=== PATIENT | male | born 1950 | race Caucasian/White ===

== ENCOUNTER → 2023-06-18 08:52 | Outpatient (REF) | payer MEDICARE, OTHER, SELFPAY | LOC: RAD 08:52 | PROVIDERS: ATTENDING PHYSICIAN Surgery Vascular Surgery; FAMILY PHYSICIAN Family Medicine | DX: I77.9 Disorder of arteries and arterioles, unspecified (principal) | CPT/HCPCS: 93925; 93978 ==

== ENCOUNTER 2024-05-10 13:12 | Emergency (ER) | payer MEDICARE, OTHER, SELFPAY ==
[2024-05-10 13:26] VITALS: BP 123/72
[2024-05-10 14:05] LABS: Hematocrit 39.3 % (39.0-52.0); Hemoglobin 12.7 g/dL (13.0-18.0); Mean Corp Hgb Conc. 32.3 g/dL (33.0-37.0); Mean Corpuscular Hgb 26.8 pg (27.0-31.0); Mean Corpuscular Volume 82.9 fL (80.0-94.0); Mean Platelet Volume 8.8 fL (7.4-10.4); Platelet Count 90 10^3/uL (130-400); Red Blood Cell Count 4.74 10^6/uL (4.70-6.10); Red Cell Dist. Width 20.1 % (11.5-14.5); White Blood Cell Count 3.5 10^3/uL (4.8-10.8)
[2024-05-10 14:15] LABS: ALT (SGPT) 42 U/L (0-50); AST (SGOT) 47 U/L (17-59); Albumin 3.2 g/dl (3.5-5.0); Alkaline Phosphatase 164 U/L (38-126); Blood Urea Nitrogen 30 mg/dl (9-20); Calcium 8.7 mg/dl (8.4-10.2); Carbon Dioxide 26 mmol/L (22-30); Chloride 102 mmol/L (98-107); Glucose 100 mg/dl (70-99); Potassium 4.9 mmol/L (3.5-5.1); Sodium 135 mmol/L (135-145); Total Bilirubin 0.6 mg/dl (0.2-1.3); Total Protein 7.5 g/dl (6.3-8.2); eGFR > 60.00
[2024-05-10 14:34] LABS: % Basophils 1.2 % (0-2); % Eosinophils 0.6 % (0-6); % Lymphocytes 86.2 % (20.5-51.1); % Monocytes 6.9 % (1.7-9.3); % Neutrophils 5.1 % (42.2-75.2); Absolute Monocytes 0.2 10^3/uL (0.1-0.6); Absolute Neutrophils 0.2 10^3/uL (1.4-6.5); Nucleated Red Blood Cells % 0 % (-)
--- NOTE | 2024-05-10 14:53 | ED.SKININJ ---
HPI-Injury
<QUETA Barrientos - Last Filed: 05/10/24 15:26>
General
Chief Complaint: Skin Problem
Source: patient and spouse
Time Seen by Provider: 05/10/24 14:06
History of Present Illness-Injury
Initial Injury comments:
This is a 73 y/o male with PMH of B/L BKA, peripheral vascular disease, dilated cardiomyopathy, atrial fibrillation, hypertension, hyperlipidemia, and rheumatoid arthritis who presents to the ED c/o L BKA wound x 7 days. The wound is located on the
L knee medial. Pt has been dressing wound with Neosporin and large bandaids which have been further irritating the area. The wound has gotten larger since onset 7 days ago. Pt states the area is not painful nor warm. Denies fever/chills, nausea,
vomiting, diarrhea, headache and fatigue.
Past History
<QUETA Barrientos - Last Filed: 05/10/24 15:26>
Past History
ED Past Medical History: Arrthythmia (Atrial fib) and Other (Rheumatoid arthritis, peripheral vascular disease, Phantom pain, Psoriasis, )
ED Past Surgical History: None and Other (Vein removed left leg, B/L BKA)
Social History
Tobacco: Former smoker (quit 3-4 yrs ago)
Alcohol: Occasional
Drug: None
Personal:
Living: with family
Review of Systems
<QUETA Barrientos - Last Filed: 05/10/24 15:26>
Review of Systems
Allergies reviewed?: Yes
Constitutional: Reports no symptoms
EENT: Reports no symptoms
Respiratory: Reports no symptoms
Cardiac: Reports no symptoms
ABD/GI: Reports no symptoms
: Reports no symptoms
Musculoskeletal: Reports no symptoms
Skin: Reports no symptoms
Neurological: Reports no symptoms
Endocrine: Reports no symptoms
Hematologic/Lymphatic: Reports no symptoms
Psychiatric: Reports no symptoms
Phy Exam
<QUETA Barrientos - Last Filed: 05/10/24 15:26>
Physical Exam
Physical Exam:
Skin: L medial knee 8x5x0.1cm erythematous plaque with a 2cm ulcer centrally located with a 1cm pustule within; skin turgor with instant recoil
Head: Atraumatic, normocephalic; scalp, pink freely moveable without tenderness
Eyes: sclerae non-icteric; PERRLA; EOMI
Resp: muscle and respiratory effort symmetric without use of accessory muscles; vesicular breath sounds without adventitious sounds; even, quiet breathing
Heart: No lifts or heaves visible; regular rate and rhythm; No murmurs, rubs or gallops
General Physical Exam
General Presentation: well appearing
General age: appears stated age
General Skin: warm and dry
General Habitus: normal
General Mental: alert
General Hydration: appears well hydrated
Course
<Amarilis Duenas BHAVYA - Last Filed: 05/10/24 15:26>
Orders/Labs/Results
Orders:
Orders
05/10/24 13:42
Complete Blood Count/With Diff Urgent
Comprehensive Metabolic Panel Urgent
05/10/24 14:53
Doxycycline [Vibramycin] 100 mg PO NOW STA
Abnormal Lab Results
05/10/24
13:42
WBC 3.5 L 10^3/uL
(4.8-10.8)
Hgb 12.7 L g/dL
(13.0-18.0)
MCH 26.8 L pg
(27.0-31.0)
MCHC 32.3 L g/dL
(33.0-37.0)
RDW 20.1 H %
(11.5-14.5)
Plt Count 90 L 10^3/uL
(130-400)
Absolute Neuts (auto) 0.2 L* 10^3/uL
(1.4-6.5)
Neutrophils % 5.1 L %
(42.2-75.2)
Lymphocytes % 86.2 H %
(20.5-51.1)
BUN 30 H mg/dl
(9-20)
Glucose 100 H mg/dl
(70-99)
Alkaline Phosphatase 164 H U/L
(38-126)
Albumin 3.2 L g/dl
(3.5-5.0)
05/10/24 13:42
05/10/24 13:42
Vital Signs
Initial and Last Documented VS:
Initial Vital Signs
Temp Pulse Resp BP Pulse Ox
98.1 F 66 16 123/72 98
05/10/24 13:26 05/10/24 13:26 05/10/24 13:26 05/10/24 13:26 05/10/24 13:26
Last Documented Vital Signs
Temp Pulse Resp BP Pulse Ox
98.1 F 66 16 123/72 98
05/10/24 13:26 05/10/24 13:26 05/10/24 13:26 05/10/24 13:26 05/10/24 13:26
Samirlt;Jeremy Alcala, - Last Filed: 05/10/24 15:00>
Orders/Labs/Results
Orders:
Orders
05/10/24 13:42
Complete Blood Count/With Diff Urgent
Comprehensive Metabolic Panel Urgent
05/10/24 14:53
Doxycycline [Vibramycin] 100 mg PO NOW STA
Abnormal Lab Results
05/10/24
13:42
WBC 3.5 L 10^3/uL
(4.8-10.8)
Hgb 12.7 L g/dL
(13.0-18.0)
MCH 26.8 L pg
(27.0-31.0)
MCHC 32.3 L g/dL
(33.0-37.0)
RDW 20.1 H %
(11.5-14.5)
Plt Count 90 L 10^3/uL
(130-400)
Absolute Neuts (auto) 0.2 L* 10^3/uL
(1.4-6.5)
Neutrophils % 5.1 L %
(42.2-75.2)
Lymphocytes % 86.2 H %
(20.5-51.1)
BUN 30 H mg/dl
(9-20)
Glucose 100 H mg/dl
(70-99)
Alkaline Phosphatase 164 H U/L
(38-126)
Albumin 3.2 L g/dl
(3.5-5.0)
05/10/24 13:42
05/10/24 13:42
Vital Signs
Initial and Last Documented VS:
Initial Vital Signs
Temp Pulse Resp BP Pulse Ox
98.1 F 66 16 123/72 98
05/10/24 13:26 05/10/24 13:26 05/10/24 13:26 05/10/24 13:26 05/10/24 13:26
Last Documented Vital Signs
Temp Pulse Resp BP Pulse Ox
98.1 F 66 16 123/72 98
05/10/24 13:26 05/10/24 13:26 05/10/24 13:26 05/10/24 13:26 05/10/24 13:26
<QUETA Barrientos - Last Filed: 05/10/24 15:26>
MDM/Problems Addressed
MDM/Problems Addressed:
This is a 73 y/o male with PMH of B/L BKA, peripheral vascular disease, dilated cardiomyopathy, atrial fibrillation, hypertension, hyperlipidemia, and rheumatoid arthritis who presents to the ED with a wound slightly proximal to his amputation site
on the Left LE. Pt denies systemic systems such as fever, chills, nausea, vomiting and fatigue. Consistent with this, the wound is not warm to the touch nor swollen or indurated. Pt appears comfortable and denies pain to the touch. Admits to mild
tenderness with placement of prosthetic leg cover. Advised use of nonadherent bandages for dressing that should be changed after bath time and application of Mupirocin ointment to the wound. Pt to follow-up with wound care. Will initiate first dose
of Doxycycline 100mg prior to discharge today. Case seen and discussed with ED attending, Dr. Alcala.
<QUETA Barrientos - Last Filed: 05/10/24 15:26>
*Critical Care Note
Total Time (30-74mins, 75-104mins- exclusive of procedures): Not Applicable
ED Attending Note
<QUETA Barrientos - Last Filed: 05/10/24 15:26>
-
Portions of this chart may have been created with voice recognition software.� Occasional wrong word or��sound alike� substitutions may have occurred due to the inherent limitations of voice recognition software.
<Jeremy Alcala DO - Last Filed: 05/10/24 15:00>
ED Attending Note
Patient seen and examined by attending physician: Yes
I performed the substantive portion of visit, reviewed & personally made and approve the management plan that is documented in note by myself or CAMILLE.: Yes
Discharge Plan
Departure
Patient Disposition: Home (Routine Discharge)
Date of Disposition: 05/10/24
Time of Disposition: 14:54
Patient with high blood pressure during this ER visit?: No
Discharge Problem:
Leg wound, left
Prescriptions:
New
doxycycline monohydrate 100 mg capsule
100 mg PO BID Qty: 20 0RF
mupirocin 2 % ointment
1 applic topical BID Qty: 50 0RF
No Action
atorvastatin 10 mg tablet
10 mg PO DAILY
Entresto 24-26 mg Tablet
1 tab PO BID
multivitamin Tablet
1 tab PO DAILY
aspirin 81 mg tablet,delayed release (DR/EC)
81 mg PO DAILY
Eliquis 5 mg tablet
5 mg PO BID
Farxiga 10 mg tablet
10 mg PO DAILY
metoprolol succinate 50 mg tablet extended release 24 hr
25 mg PO DAILY
Santyl 250 unit/gram ointment
1 applic TOPICAL DAILY
polyethylene glycol 3350 [HealthyLax] 17 gram Powder In Packet
17 g PO DAILY Qty: 15 0RF
docusate sodium 100 mg Capsule
100 mg PO BID Qty: 5 0RF
gabapentin 100 mg Capsule
100 mg PO HS Qty: 60 0RF
amoxicillin-pot clavulanate 875-125 mg Tablet
1 tab PO Q12 Qty: 12 0RF
Rx Instructions:
Throat March 18
oxycodone 5 mg Tablet
5 mg PO Q4HPRN PRN (Reason: mod pain) Qty: 20 0RF
oxycodone 10 mg Tablet
10 mg PO Q4HPRN PRN (Reason: severe) Qty: 20 0RF
Referrals:
Chicho Muñiz DO [Family Provider] -
Activity Restrictions/Additional Instructions:
Please follow-up with wound care in the next 3 to 5 days. Keep the wound clean and dry. It is okay to get wet but do not soak it. Be careful not to allow your prosthesis to rub in that area. Return immediately for fevers, swelling, increased
redness, drainage or any other concerns. Change dressings twice a day.
Interventions
Interventions:
*Risk Screen - Suicide Last Done: 05/10/24 13:26
*General Assessment Last Done: 05/10/24 14:50
*Neglect/Abuse Screening Last Done: 05/10/24 13:26
ED- Fall Risk Assessment Last Done: 05/10/24 15:17
*ED COVID-19 Vaccine History Last Done: 05/10/24 14:50
*Nursing Disposition Last Done: 05/10/24 15:17
ED-Skin Assessment Last Done: 05/10/24 15:14
Discharge Date and Time
Print Language: BELARUSIAN
[2024-05-10] MEDS: VIBRAMYCIN 100 MG PO (15:10)
== END 2024-05-10 15:19 | disposition home or self-care (01) ==
LOC: EMR 13:12
PROVIDERS: Emergency Medicine; EMERGENCY PHYSICIAN Emergency Medicine; FAMILY PHYSICIAN Family Medicine
DX: S81.802A Unspecified open wound, left lower leg, initial encounter (principal); X58.XXXA Exposure to other specified factors, initial encounter; I73.9 Peripheral vascular disease, unspecified; I42.0 Dilated cardiomyopathy; I48.91 Unspecified atrial fibrillation; I10 Essential (primary) hypertension; E78.00 Pure hypercholesterolemia, unspecified; M06.9 Rheumatoid arthritis, unspecified; Z87.891 Personal history of nicotine dependence; Z89.512 Acquired absence of left leg below knee
CPT/HCPCS: 99283; 80053; 85025

== ENCOUNTER → 2024-05-11 07:36 | Outpatient (REF) | payer MEDICARE, OTHER, SELFPAY | LOC: WOUND 07:36 | PROVIDERS: ATTENDING PHYSICIAN Surgery; FAMILY PHYSICIAN Family Medicine | DX: L89.893 Pressure ulcer of other site, stage 3 (principal); S81.002A Unspecified open wound, left knee, initial encounter; I77.9 Disorder of arteries and arterioles, unspecified; I48.0 Paroxysmal atrial fibrillation; I50.21 Acute systolic (congestive) heart failure; M06.9 Rheumatoid arthritis, unspecified; Z89.512 Acquired absence of left leg below knee; Z89.511 Acquired absence of right leg below knee; X58.XXXA Exposure to other specified factors, initial encounter | CPT/HCPCS: 11042; 99214 ==

== ENCOUNTER → 2024-05-11 08:57 | Outpatient (REF) | payer MEDICARE, OTHER, SELFPAY | LOC: RAD 08:57 | PROVIDERS: ATTENDING PHYSICIAN Surgery; FAMILY PHYSICIAN Family Medicine | DX: L89.893 Pressure ulcer of other site, stage 3 (principal); S81.002A Unspecified open wound, left knee, initial encounter | CPT/HCPCS: 73564 ==

== ENCOUNTER → 2024-05-18 08:44 | Outpatient (REF) | payer MEDICARE, OTHER, SELFPAY | LOC: WOUND 08:44 | PROVIDERS: ATTENDING PHYSICIAN Surgery; FAMILY PHYSICIAN Family Medicine | DX: L89.893 Pressure ulcer of other site, stage 3 (principal); S81.002A Unspecified open wound, left knee, initial encounter; X58.XXXA Exposure to other specified factors, initial encounter | CPT/HCPCS: 11042 ==

== ENCOUNTER → 2024-07-19 09:47 | Outpatient (REF) | payer MEDICARE, OTHER, SELFPAY | LOC: RAD 09:47 | PROVIDERS: ATTENDING PHYSICIAN Surgery Vascular Surgery; FAMILY PHYSICIAN Family Medicine | DX: I77.9 Disorder of arteries and arterioles, unspecified (principal) | CPT/HCPCS: 93978 ==

== ENCOUNTER → 2024-08-03 09:59 | Outpatient (REF) | payer MEDICARE, OTHER, SELFPAY | LOC: WOUND 09:59 | PROVIDERS: ATTENDING PHYSICIAN Surgery; FAMILY PHYSICIAN Family Medicine | DX: L89.893 Pressure ulcer of other site, stage 3 (principal); S81.002A Unspecified open wound, left knee, initial encounter; I77.9 Disorder of arteries and arterioles, unspecified; Z89.512 Acquired absence of left leg below knee; Z89.511 Acquired absence of right leg below knee; I48.0 Paroxysmal atrial fibrillation; I50.21 Acute systolic (congestive) heart failure; M06.9 Rheumatoid arthritis, unspecified | CPT/HCPCS: 99214 ==

== ENCOUNTER → 2024-08-10 10:15 | Outpatient (REF) | payer MEDICARE, OTHER, SELFPAY | LOC: WOUND 10:15 | PROVIDERS: ATTENDING PHYSICIAN Surgery; FAMILY PHYSICIAN Family Medicine | DX: L89.893 Pressure ulcer of other site, stage 3 (principal); S81.002A Unspecified open wound, left knee, initial encounter; I77.9 Disorder of arteries and arterioles, unspecified; I48.0 Paroxysmal atrial fibrillation; I50.21 Acute systolic (congestive) heart failure; M06.9 Rheumatoid arthritis, unspecified; Z89.512 Acquired absence of left leg below knee; Z89.511 Acquired absence of right leg below knee; X58.XXXA Exposure to other specified factors, initial encounter | CPT/HCPCS: 99213 ==

== ENCOUNTER → 2024-08-10 11:36 | Outpatient (REF) | payer MEDICARE, OTHER, SELFPAY | LOC: RAD 11:36 | PROVIDERS: ATTENDING PHYSICIAN Surgery | DX: L89.893 Pressure ulcer of other site, stage 3 (principal); S81.002A Unspecified open wound, left knee, initial encounter | CPT/HCPCS: 73564 ==

== ENCOUNTER → 2024-08-17 10:46 | Outpatient (REF) | payer MEDICARE, OTHER, SELFPAY | LOC: WOUND 10:46 | PROVIDERS: ATTENDING PHYSICIAN Surgery; FAMILY PHYSICIAN Family Medicine | DX: L89.893 Pressure ulcer of other site, stage 3 (principal); S81.002A Unspecified open wound, left knee, initial encounter; I77.9 Disorder of arteries and arterioles, unspecified; I48.0 Paroxysmal atrial fibrillation; I50.21 Acute systolic (congestive) heart failure; M06.9 Rheumatoid arthritis, unspecified; Z89.512 Acquired absence of left leg below knee; Z89.511 Acquired absence of right leg below knee; X58.XXXA Exposure to other specified factors, initial encounter | CPT/HCPCS: 10140 ==

== ENCOUNTER 2024-08-24 19:30 | Inpatient (IN) | payer MEDICARE, OTHER, SELFPAY ==
[2024-08-24] VITALS (38 sets, daily range): BP systolic 73–145; BP diastolic 52–122; BMI 17.9
--- NOTE | 2024-08-24 16:37 | ED.GENMED ---
History of Present Illness
<EDISON Gonsalves - Last Filed: 08/24/24 21:30>
General
Chief Complaint: Weakness
Source: patient and spouse
Exam Limitations: none
Time Seen by Provider: 08/24/24 16:17
Nursing documentation reviewed up to this point in time: agreed with
History of Present Illness
History of Present Illness:
Patient is a 73-year-old male with past medical history of peripheral vascular disease , bilateral BKA, A-fib on Eliquis CAD with stent, CHF pacemaker presents to the ER for evaluation. Patient lives at home with is normally able to get
around using his prosthesis and care for himself. He has been weak for the past several days and started with fever today. Patient complains of generally feeling fatigued and chills. reports his urine is dark. Patient took Tylenol around 8
AM this morning. Nothing since. He denies any runny nose does complain of mild cough.
reports patient is being followed by wound center Dr. Bustamante for chronic wound to left leg.
Past History
<EDISON Gonsalves - Last Filed: 08/24/24 21:30>
Past History
ED Past Medical History: Arrthythmia (Atrial fib) and Other (Rheumatoid arthritis, peripheral vascular disease, Phantom pain, Psoriasis, )
ED Past Surgical History: None and Other (Vein removed left leg, B/L BKA)
Social History
Tobacco: Former smoker (quit 3-4 yrs ago)
Alcohol: Occasional
Drug: None
Personal:
Living: with family
Review of Systems
<EDISON Gonsalves - Last Filed: 08/24/24 21:30>
Review of Systems
Allergies reviewed?: Yes
Other source history: family
All Other Systems: ROS reviewed and negative except as documented in HPI and ROS
Constitutional: Reports fever, fatigue and chills
Respiratory: Reports cough; Denies trouble breathing
Cardiac: Reports no symptoms
ABD/GI: Reports no symptoms
: Reports dark urine
Musculoskeletal: Reports no symptoms
Skin: Reports no symptoms
Neurological: Reports no symptoms
Psychiatric: Reports no symptoms
Phy Exam
<EDISON Gonsalves - Last Filed: 08/24/24 21:30>
General Physical Exam
General Presentation: no apparent distress
General age: appears stated age
General Skin: warm and dry
General Habitus: normal
General Mental: alert
General Hydration: dry mucous membranes
Cardiovascular Exam
Cardiovascular Exam: irregularly irregular and tachycardia
Pulmonary Exam
Pulmonary Exam: lungs clear and no respiratory distress
Neurological Exam
Neurological Exam: alert and oriented x3
Musculoskeletal Exam
Musculoskeletal Exam: other (Bilateral BKA)
Skin Exam
Skin Exam: normal color and warm/dry
Psychiatric Exam
Psychiatric Exam: normal mood/affect
Sepsis
<EDISON Gonsalves - Last Filed: 08/24/24 21:30>
Sepsis Screening
Sepsis Assessment: Sepsis
Sepsis Screen
Sepsis Screen: Sepsis
Date: 08/24/24
Time: 21:30
<Jeremy Alcala DO - Last Filed: 08/24/24 23:15>
Sepsis Screen
Sepsis Screen: Sepsis
Date: 08/24/24
Time: 23:13
Course
<EDISON Gonsalves - Last Filed: 08/24/24 21:30>
Orders/Labs/Results
Orders:
Orders
08/24/24 Breakfast
Sodium, 2 Gram
At Your Request: Full Participation
08/24/24 16:00
Electrocardiogram (*1) Urgent
Reason for Study: Tachycardia
EKG- Treatment ONCE
08/24/24 16:12
COVID-19 Antigen Urgent
Source: Nasal Swab
Complete Blood Count/With Diff Urgent
Comprehensive Metabolic Panel Urgent
Influenza A+B Rapid Molecular Urgent
MARIYA Source: Nasal Swab
Specimen Description:
08/24/24 16:38
Cardiac Monitoring- Treatment ONCE
IV Insert/Care/Rem.- Treatment PRN
Portable Chest Xray [CR Chest Portable - 1 View] Urgent
Comment:
Reason For Exam: cough
Reason Study Needs to be Portable: Patient Unstable
08/24/24 16:39
Acetaminophen [Tylenol/Feverall] 650 mg RECTAL NOW STA
08/24/24 16:44
0.9% Sodium Chloride 1000 ml [Nss] 1,800 ml IV NOW STA
08/24/24 16:52
Lactic Acid Q4H
Comment: CANCEL 2nd LACTIC ACID IF 1st LACTIC ACID IS LESS THAN 2
Blood Culture Q30M
MARIYA Source: Blood/Venous
Specimen Description:
Blood Culture Q30M
MARIYA Source: Blood/Venous
Specimen Description:
08/24/24 18:15
NORepinephrine 4 MG/250 ML [Levophed] 4 mg in 250 ml IV PER PROTOCOL
Initial dose in mcg/min, then titrate:: 8
Titrate to keep:: MAP > 65 mmHg
Titrate by mcg/min:: 1-2 mcg/min
Frequency of titrations (minutes):: 5
Maximum dose in ICU in mcg/min:: 30
Maximum dose in IMU in mcg/min:: 8
Maximum dose in IVU in mcg/min:: 4
Begin to taper infusion when:: Remained at goal for 4hrs
Taper by mcg/min:: 1-2 mcg/min
Frequency of taper (minutes) if patient maintains goal:: 30
Taper to off?: Yes
If infusion off & no longer maintaining goal:: Contact Provider
08/24/24 18:17
Piperacillin/Tazo 4.5 Gram [Zosyn] 4.5 gram in 100 ml IV NOW
08/24/24 18:32
UA Reflex to Culture [Urinalysis Reflex To Culture] Urgent
Date Specimen was Collected: 08/24/24
Time Specimen was Collected: 18:28
Urine Microscopic Reflex Cult Urgent
Urine Culture Urgent
MARIYA Source: U
Specimen Description:
Date Specimen was Collected: 08/24/24
Time Specimen was Collected: 18:28
08/24/24 18:51
0.9% Sodium Chloride 500 ml [Nss] 500 ml IV BOLUS
Vancomycin [Vancocin] 1,500 mg 0.9% Sodium Chloride 500 ml [Nss] 500 ml IV NOW
08/24/24 18:54
Admit/Transfer Patient As Directed
Co-Sign Provider:
Level of Care: Inpatient admission
Assign to:: ICU
Physician / Group: Yamilet
Diagnosis: Septic Shock
Reason for Hospitalization: pressors, IV abx
Expected length of stay greater than two midnights?: Yes
ELOS- Estimated Length of Stay in days: 3
I certify the patient meets the requirements for IP care: Yes
Sodium Bicarbonate 50 meq IV NOW STA
PRN Pain Medication Management As Directed
May give lesser potent ordered pain med per pt: Yes
preference::
Protocol:: Medication orders for pain may be administered in a
manner that supports deferring to patient preference
when the pt is:
- Requesting an ordered lesser potent pain medication.
Least to most potent pain medications are defined
as: acetaminophen < NSAID < tramadol < opioids
(morphine, oxycodone, hydromorphone).
- Requesting a lesser dose of the same medication IF
ORDERED.
- Requesting a less intrusive route of administration
if both routes are prescribed by the provider (PO <
IV).
08/24/24 18:55
Code Status As Directed
Resuscitation Status: Full Code
08/24/24 21:13
Lactic Acid Q4H
Comment: CANCEL 2nd LACTIC ACID IF 1st LACTIC ACID IS LESS THAN 2
08/24/24 21:44
Acetaminophen [Tylenol] 650 mg PO Q4HPRN PRN
PHENYLephrine 50 MG/250 ML NSS [Kranthi-Synephrine] 50 mg in 250 ml IV PER PROTOCOL
Initial dose in mcg/min, then titrate:: 20
Titrate to keep:: MAP > 65 mmHg
Titrate by mcg/min:: 20 mcg/min
Frequency of titrations (minutes):: 5
Maximum dose in ICU in mcg/min:: 200
Maximum dose in IMU in mcg/min:: 80
Begin to taper infusion when:: Remained at goal for 4hrs
Taper by mcg/min:: 20 mcg/min
Frequency of taper (minutes) if patient maintains goal:: 30
Taper to off?: Yes
If infusion off & no longer maintaining goal:: Contact Provider
Sterile Water For Inj [Sterile Water For Injection 1000 ml] 1,000 ml Sodium Bicarbonate 150 meq IV 100 mls/hr
VANCOMYCIN Pharmacy to Dose [VANCOCIN Pharmacy to Dose] 1 each Pharmacy To Prepare [Call Pharmacy To Prepare] 0 ml IV PER PROTOCOL
08/24/24 21:44
Manager Of Construction Consult Routine
Consulting Provider: Pepe Greene
Was physician already notified: Yes
Activity As Directed
Activity Level: Bedrest
Bladder Scan As Directed
Follow Bladder Retention/Intermittent Cath Algorithm?: Yes
PRN if no void in __ hours: 6
Frequency: Per Retention Algorithm
If Bladder Scan Result >: 400
then:: Straight cath
I&O [Intake/ Output] As Directed
Frequency: q12h
Precautions As Directed
Type of Precautions: Neutropenic
Straight Cath As Directed
Frequency: Per Retention Algorithm
Additional Instructions: straight cath as needed per acute urinary retention algorithm for 24 hrs
Additional Instructions: for bladder scan greater than 400 mL
Vital Signs As Directed
Frequency: Per unit guidelines
Weight As Directed
Frequency: Daily
08/25/24 02:00
Piperacillin/Tazo 2.25 Gram [Zosyn] 2.25 grams in 50 ml IV Q8H
08/25/24 06:00
Complete Blood Count/No Diff IN AM
Comprehensive Metabolic Panel IN AM
08/25/24 08:00
Aspirin Low Dose EC [Aspir Low (Enteric Coated)] 81 mg PO DAILY
08/25/24 18:00
Atorvastatin [Lipitor] 40 mg PO QPM
Abnormal Lab Results
08/24/24 08/24/24 08/24/24
16:12 16:52 18:32
RBC 3.21 L 10^6/uL
(4.70-6.10)
Hgb 9.0 L g/dL
(13.0-18.0)
Hct 28.1 L %
(39.0-52.0)
MCHC 32.0 L g/dL
(33.0-37.0)
RDW 19.2 H %
(11.5-14.5)
Plt Count 68 L 10^3/uL
(130-400)
Absolute Neuts (auto) 0.4 L* 10^3/uL
(1.4-6.5)
Absolute Lymphs (auto) 4.2 H 10^3/uL
(1.2-3.4)
Neutrophils % 7.7 L %
(42.2-75.2)
Lymphocytes % 86.2 H %
(20.5-51.1)
Chloride 111 H mmol/L
(98-107)
Carbon Dioxide 14 L* mmol/L
(22-30)
BUN 65 H mg/dl
(9-20)
Creatinine 3.2 H mg/dL
(0.7-1.3)
Glucose 102 H mg/dl
(70-99)
Lactic Acid 2.1 H mmol/L
(0.7-2.0)
Calcium 7.7 L mg/dl
(8.4-10.2)
AST 72 H U/L
(17-59)
Alkaline Phosphatase 143 H U/L
(38-126)
Albumin 2.8 L g/dl
(3.5-5.0)
Ur Occult Blood Reflex 4+ A
(Negative)
Leukocyte Esterase Rfl 1+ A
(Negative)
Urine RBC >100 A /HPF
(0-2)
Urine WBC (Reflex) 11-15 A /HPF
(0-5)
Urine Bacteria (Reflex) Many A
(Negative)
Urine Albumin (Reflex) 4+ A
(Neg - Trace)
08/24/24 16:12
08/24/24 16:12
Vital Signs
Initial and Last Documented VS:
Initial Vital Signs
Temp Pulse Resp BP Pulse Ox
103.1 F H 147 18 102/78 94
08/24/24 16:02 08/24/24 16:02 08/24/24 16:02 08/24/24 16:02 08/24/24 16:02
Last Documented Vital Signs
Temp Pulse Resp BP Pulse Ox
103.1 F H 167 20 118/90 96
08/24/24 18:45 08/24/24 22:59 08/24/24 21:45 08/24/24 22:59 08/24/24 21:10
Flat [employer] Element Maker consulted with Physician
Flat Optical Element Maker consulted with physician?: Yes
Name of Physician Consulted: Nanette
<Jeremy Alcala, - Last Filed: 08/24/24 23:15>
Orders/Labs/Results
Orders:
Orders
08/24/24 Breakfast
Sodium, 2 Gram
At Your Request: Full Participation
08/24/24 16:00
Electrocardiogram (*1) Urgent
Reason for Study: Tachycardia
EKG- Treatment ONCE
08/24/24 16:12
COVID-19 Antigen Urgent
Source: Nasal Swab
Complete Blood Count/With Diff Urgent
Comprehensive Metabolic Panel Urgent
Influenza A+B Rapid Molecular Urgent
MARIYA Source: Nasal Swab
Specimen Description:
08/24/24 16:38
Cardiac Monitoring- Treatment ONCE
IV Insert/Care/Rem.- Treatment PRN
Portable Chest Xray [CR Chest Portable - 1 View] Urgent
Comment:
Reason For Exam: cough
Reason Study Needs to be Portable: Patient Unstable
08/24/24 16:39
Acetaminophen [Tylenol/Feverall] 650 mg RECTAL NOW STA
08/24/24 16:44
0.9% Sodium Chloride 1000 ml [Nss] 1,800 ml IV NOW STA
08/24/24 16:52
Lactic Acid Q4H
Comment: CANCEL 2nd LACTIC ACID IF 1st LACTIC ACID IS LESS THAN 2
Blood Culture Q30M
MARIYA Source: Blood/Venous
Specimen Description:
Blood Culture Q30M
MARIYA Source: Blood/Venous
Specimen Description:
08/24/24 18:15
NORepinephrine 4 MG/250 ML [Levophed] 4 mg in 250 ml IV PER PROTOCOL
Initial dose in mcg/min, then titrate:: 8
Titrate to keep:: MAP > 65 mmHg
Titrate by mcg/min:: 1-2 mcg/min
Frequency of titrations (minutes):: 5
Maximum dose in ICU in mcg/min:: 30
Maximum dose in IMU in mcg/min:: 8
Maximum dose in IVU in mcg/min:: 4
Begin to taper infusion when:: Remained at goal for 4hrs
Taper by mcg/min:: 1-2 mcg/min
Frequency of taper (minutes) if patient maintains goal:: 30
Taper to off?: Yes
If infusion off & no longer maintaining goal:: Contact Provider
08/24/24 18:17
Piperacillin/Tazo 4.5 Gram [Zosyn] 4.5 gram in 100 ml IV NOW
08/24/24 18:32
UA Reflex to Culture [Urinalysis Reflex To Culture] Urgent
Date Specimen was Collected: 08/24/24
Time Specimen was Collected: 18:28
Urine Microscopic Reflex Cult Urgent
Urine Culture Urgent
MARIYA Source: U
Specimen Description:
Date Specimen was Collected: 08/24/24
Time Specimen was Collected: 18:28
08/24/24 18:51
0.9% Sodium Chloride 500 ml [Nss] 500 ml IV BOLUS
Vancomycin [Vancocin] 1,500 mg 0.9% Sodium Chloride 500 ml [Nss] 500 ml IV NOW
08/24/24 18:54
Admit/Transfer Patient As Directed
Co-Sign Provider:
Level of Care: Inpatient admission
Assign to:: ICU
Physician / Group: Yamilet
Diagnosis: Septic Shock
Reason for Hospitalization: pressors, IV abx
Expected length of stay greater than two midnights?: Yes
ELOS- Estimated Length of Stay in days: 3
I certify the patient meets the requirements for IP care: Yes
Sodium Bicarbonate 50 meq IV NOW STA
PRN Pain Medication Management As Directed
May give lesser potent ordered pain med per pt: Yes
preference::
Protocol:: Medication orders for pain may be administered in a
manner that supports deferring to patient preference
when the pt is:
- Requesting an ordered lesser potent pain medication.
Least to most potent pain medications are defined
as: acetaminophen < NSAID < tramadol < opioids
(morphine, oxycodone, hydromorphone).
- Requesting a lesser dose of the same medication IF
ORDERED.
- Requesting a less intrusive route of administration
if both routes are prescribed by the provider (PO <
IV).
08/24/24 18:55
Code Status As Directed
Resuscitation Status: Full Code
08/24/24 21:13
Lactic Acid Q4H
Comment: CANCEL 2nd LACTIC ACID IF 1st LACTIC ACID IS LESS THAN 2
08/24/24 21:44
Acetaminophen [Tylenol] 650 mg PO Q4HPRN PRN
PHENYLephrine 50 MG/250 ML NSS [Kranthi-Synephrine] 50 mg in 250 ml IV PER PROTOCOL
Initial dose in mcg/min, then titrate:: 20
Titrate to keep:: MAP > 65 mmHg
Titrate by mcg/min:: 20 mcg/min
Frequency of titrations (minutes):: 5
Maximum dose in ICU in mcg/min:: 200
Maximum dose in IMU in mcg/min:: 80
Begin to taper infusion when:: Remained at goal for 4hrs
Taper by mcg/min:: 20 mcg/min
Frequency of taper (minutes) if patient maintains goal:: 30
Taper to off?: Yes
If infusion off & no longer maintaining goal:: Contact Provider
Sterile Water For Inj [Sterile Water For Injection 1000 ml] 1,000 ml Sodium Bicarbonate 150 meq IV 100 mls/hr
VANCOMYCIN Pharmacy to Dose [VANCOCIN Pharmacy to Dose] 1 each Pharmacy To Prepare [Call Pharmacy To Prepare] 0 ml IV PER PROTOCOL
08/24/24 21:44
Manager Of Construction Consult Routine
Consulting Provider: Pepe Greene
Was physician already notified: Yes
Activity As Directed
Activity Level: Bedrest
Bladder Scan As Directed
Follow Bladder Retention/Intermittent Cath Algorithm?: Yes
PRN if no void in __ hours: 6
Frequency: Per Retention Algorithm
If Bladder Scan Result >: 400
then:: Straight cath
I&O [Intake/ Output] As Directed
Frequency: q12h
Precautions As Directed
Type of Precautions: Neutropenic
Straight Cath As Directed
Frequency: Per Retention Algorithm
Additional Instructions: straight cath as needed per acute urinary retention algorithm for 24 hrs
Additional Instructions: for bladder scan greater than 400 mL
Vital Signs As Directed
Frequency: Per unit guidelines
Weight As Directed
Frequency: Daily
08/25/24 02:00
Piperacillin/Tazo 2.25 Gram [Zosyn] 2.25 grams in 50 ml IV Q8H
08/25/24 06:00
Complete Blood Count/No Diff IN AM
Comprehensive Metabolic Panel IN AM
08/25/24 08:00
Aspirin Low Dose EC [Aspir Low (Enteric Coated)] 81 mg PO DAILY
08/25/24 18:00
Atorvastatin [Lipitor] 40 mg PO QPM
Abnormal Lab Results
08/24/24 08/24/24 08/24/24
16:12 16:52 18:32
RBC 3.21 L 10^6/uL
(4.70-6.10)
Hgb 9.0 L g/dL
(13.0-18.0)
Hct 28.1 L %
(39.0-52.0)
MCHC 32.0 L g/dL
(33.0-37.0)
RDW 19.2 H %
(11.5-14.5)
Plt Count 68 L 10^3/uL
(130-400)
Absolute Neuts (auto) 0.4 L* 10^3/uL
(1.4-6.5)
Absolute Lymphs (auto) 4.2 H 10^3/uL
(1.2-3.4)
Neutrophils % 7.7 L %
(42.2-75.2)
Lymphocytes % 86.2 H %
(20.5-51.1)
Chloride 111 H mmol/L
(98-107)
Carbon Dioxide 14 L* mmol/L
(22-30)
BUN 65 H mg/dl
(9-20)
Creatinine 3.2 H mg/dL
(0.7-1.3)
Glucose 102 H mg/dl
(70-99)
Lactic Acid 2.1 H mmol/L
(0.7-2.0)
Calcium 7.7 L mg/dl
(8.4-10.2)
AST 72 H U/L
(17-59)
Alkaline Phosphatase 143 H U/L
(38-126)
Albumin 2.8 L g/dl
(3.5-5.0)
Ur Occult Blood Reflex 4+ A
(Negative)
Leukocyte Esterase Rfl 1+ A
(Negative)
Urine RBC >100 A /HPF
(0-2)
Urine WBC (Reflex) 11-15 A /HPF
(0-5)
Urine Bacteria (Reflex) Many A
(Negative)
Urine Albumin (Reflex) 4+ A
(Neg - Trace)
08/24/24 16:12
08/24/24 16:12
Vital Signs
Initial and Last Documented VS:
Initial Vital Signs
Temp Pulse Resp BP Pulse Ox
103.1 F H 147 18 102/78 94
08/24/24 16:02 08/24/24 16:02 08/24/24 16:02 08/24/24 16:02 08/24/24 16:02
Last Documented Vital Signs
Temp Pulse Resp BP Pulse Ox
103.1 F H 167 20 118/90 96
08/24/24 18:45 08/24/24 22:59 08/24/24 21:45 08/24/24 22:59 08/24/24 21:10
<EDISON Gonsalves - Last Filed: 08/24/24 21:30>
MDM/Problems Addressed
Differential Diagnosis Includes:
Not limited to sepsis, influenza, COVID, UTI
MDM/Problems Addressed:
Patient is a 73-year-old male presented with weakness for the past 4 days and fever. Patient has bilateral BKA but normally gets around very well with his prosthesis and is self-sufficient with 's assistance. Patient presents awake alert he is
very dehydrated on exam with dry mucous membranes with a temperature of 103.1. He does have a history of A-fib but is tachycardic in A-fib in the 140s. Patient's white count is normal at 4.9 lactic is 2.1/
Patient with acute renal injury with a BUN of 65 a creatinine of 3.2 and a normal potassium. This is new last creatinine was 1.April. Patient denies any abdominal pain abdomen soft and nontender normal bilirubin AST very minimally
elevated. X-ray reads possible mild pulm edema versus pneumonia however no focal dense consolidation.
On initial arrival lungs were clear he is not hypoxic. Patient was given sepsis fluids will BladderScan and attempt straight cath however patient was given empiric antibiotics for sepsis. Upon arrival patient's blood pressure was low at 102/78 and
as documented he presented awake and alert however blood pressure now in the 80s. Will order Levophed. Case reviewed with ED physician who eval pt. will require ICU admission.
Urinalysis does show greater than 100 RBCs and 11�15 white blood cells. I understand
<EDISON Gonsalves - Last Filed: 08/24/24 21:30>
*Radiology
Radiology exam reviewed: radiology read reviewed
*Pulse Oximetry
Patient hypoxic: no
*EKG
Interpreted by ED Provider?: Yes
Heart Rate: 142
Rate: tachycardiac
Rhythm: a-fib
Ischemia: non-specific ST changes
*Critical Care Note
Total Time (30-74mins, 75-104mins- exclusive of procedures): Not Applicable
<Jeremy Alcala DO - Last Filed: 08/24/24 23:15>
*Critical Care Note
Total Time (30-74mins, 75-104mins- exclusive of procedures): 45 minutes
Data Reviewed
Review of Other/Old Records Reveals: Labs and Records
ED Attending Note
<EDISON Gonsalves - Last Filed: 08/24/24 21:30>
-
Portions of this chart may have been created with voice recognition software.� Occasional wrong word or��sound alike� substitutions may have occurred due to the inherent limitations of voice recognition software.
<Jeremy Alcala DO - Last Filed: 08/24/24 23:15>
ED Attending Note
Patient seen and examined by attending physician: Yes
I performed the substantive portion of visit, reviewed & personally made and approve the management plan that is documented in note by myself or CAMILLE.: Yes
ED Attending Note:
73-year-old found to be febrile. Does have a leg wound. IV antibiotics broad-spectrum given. Continue fluids and vasopressors. Admit. Case discussed with hospitalist. Agree with above. No meningismus.
Discharge Plan
Departure
Patient Disposition: Admit
Date of Disposition: 08/24/24
Time of Disposition: 18:26
Admit to: ICU
Admit to doctor: hospitalist
Presentation/result/management discussed w/ accepting MD/DO: Hospitalist
Patient with high blood pressure during this ER visit?: No
Condition: Fair
Covid-19: Not Applicable
Discharge Problem:
Fever, Acute kidney injury
Interventions
Interventions:
*Risk Screen - Suicide Last Done: 08/24/24 16:08
*General Assessment Last Done: 08/24/24 16:27
*Neglect/Abuse Screening Last Done: 08/24/24 16:08
*ED- Fall Risk Assessment Last Done: 08/24/24 16:27
*ED COVID-19 Vaccine History Last Done: 08/24/24 16:08
*Nursing Disposition Last Done: 08/24/24 21:58
ED- Cardiac Assessment Last Done: 08/24/24 16:25
ED- Neurological Assessment Last Done: 08/24/24 16:09
Discharge Date and Time
Discharge Date/Time: 08/24/24 21:59
[2024-08-24 16:39] LABS: ALT (SGPT) 31 U/L (0-50); AST (SGOT) 72 U/L (17-59); Albumin 2.8 g/dl (3.5-5.0); Alkaline Phosphatase 143 U/L (38-126); Blood Urea Nitrogen 65 mg/dl (9-20); COVID-19 Antigen Negative (Negative); Calcium 7.7 mg/dl (8.4-10.2); Carbon Dioxide 14 mmol/L (22-30); Chloride 111 mmol/L (98-107); Estimated Creatinine Clearance 18 ml/min; Glucose 102 mg/dl (70-99); Potassium 4.4 mmol/L (3.5-5.1); Sodium 138 mmol/L (135-145); Total Bilirubin 0.9 mg/dl (0.2-1.3); Total Protein 6.9 g/dl (6.3-8.2); eGFR 19.93
[2024-08-24 17:02] LABS: % Basophils 0.2 % (0-2); % Immature Granulocytes 0.2 % (0-0.5); % Lymphocytes 86.2 % (20.5-51.1); % Monocytes 5.7 % (1.7-9.3); % Neutrophils 7.7 % (42.2-75.2); Absolute Lymphocytes 4.2 10^3/uL (1.2-3.4); Absolute Monocytes 0.3 10^3/uL (0.1-0.6); Absolute Neutrophils 0.4 10^3/uL (1.4-6.5); Hematocrit 28.1 % (39.0-52.0); Mean Corpuscular Volume 87.5 fL (80.0-94.0); Mean Platelet Volume 9.1 fL (7.4-10.4); Nucleated Red Blood Cells % 0.6 % (-); Platelet Count 68 10^3/uL (130-400); Red Blood Cell Count 3.21 10^6/uL (4.70-6.10); Red Cell Dist. Width 19.2 % (11.5-14.5); White Blood Cell Count 4.9 10^3/uL (4.8-10.8)
[2024-08-24] MEDS: TYLENOL/FEVERALL 650 MG RECTAL (17:09)
[2024-08-24] MEDS: NSS 1800 ML IV (17:25)
[2024-08-24 17:27] LABS: Lactic Acid 2.1 mmol/L (0.7-2.0)
[2024-08-24] MEDS: LEVOPHED 250 IV (18:24)
--- NOTE | 2024-08-24 18:27 | HPS.HSE ---
Family Physician
-
Family Physician: NOT KNOW UNKNOWN - PT DOES
Chief Complaint
-
Weakness and Fever
History of Present Illness
Patient is a 73 y/o male past medical history of PAD, A-Fib, CHF, HTN and RA who presents with weakness and fever. Patient reports increasing weakness for the past few days. at bedside notes patient had very poor appetite yesterday and today.
Today patient developed high fever which prompted them to call EMS who brought him to the emergency department for evaluation. Patient denies cough or shortness of breath. He denies abdominal pain, nausea, vomiting, diarrhea or constipation. He
denies dysuria. He has a chronic left lower extremity wound for which he follows at the wound care center. He denies any increased redness or drainage from the wound.
Medical History
Past Medical History
Past Medical History: Reports Other
Additional Past Medical History:
Peripheral Arterial Disease s/p Bilateral BKAs
Paroxysmal Atrial Fibrillation
Tachy-Shree Syndrome s/p Permanent Pacemaker
Chronic Heart Failure with Recovered EF
Left Atrial Appendage Thrombus
Essential Hypertension
Hyperlipidemia
Rheumatoid Arthritis
Thrombocytopenia
Past Surgical History: Reports None and Other
Additional Past Surgical History:
LLE Stent
Bilateral BKAs
Permanent Pacemaker
Social History
Tobacco: Former Smoker
Alcohol: None
Drug: None
Personal:
Living: With Family
Family History
Family History: CAD
Allergies / Home Medications
Allergies reflects when Allergies were last updated in [employer]
Home Medications with original date entered in [employer]
Allergy/Medication List:
Allergies
Allergy/AdvReac Type Severity Reaction Status Date / Time
No Known Allergies Allergy Verified 08/24/24 16:05
Home Medications
atorvastatin 10 mg tablet 10 mg PO BID High cholesterol 01/07/22
sacubitril 24 mg-valsartan 26 mg tablet (Entresto) 1 tab PO BID Heart Failure 01/07/22
multivitamin 1 tab PO DAILY Supplement 12/28/22
apixaban 5 mg tablet (Eliquis) 5 mg PO BID atrial fibrillation 02/03/23
aspirin 81 mg tablet,delayed release 81 mg PO DAILY Blood Clot Prevention/Tx 02/03/23
dapagliflozin propanediol 10 mg tablet (Farxiga) 10 mg PO DAILY Heart Failure 02/03/23
metoprolol succinate 50 mg tablet,extended release 24 hr 25 mg PO DAILY AFib/Heart Failure 02/03/23
mupirocin 2 % topical ointment 1 applic topical BID #50 grams 05/10/24
spironolactone 25 mg tablet 25 mg PO DAILY 08/24/24
Review of Systems
-
History Source: Patient
A 12 point ROS was completed and negative except as noted: Yes
Constitutional: Denies Fever or Chills
Respiratory: Denies Cough or Trouble Breathing
Cardiac: Denies Chest Pain or Palpitations
Abdomen/GI: Denies Abdominal Pain, Nausea, Vomiting, Diarrhea or Constipated
Physical Exam
Vital Signs
Vital Signs
Temp Pulse Resp BP Pulse Ox
103.1 F H 138 20 94/70 94
08/24/24 16:02 08/24/24 17:00 08/24/24 17:00 08/24/24 17:00 08/24/24 17:00
Physical Exam
General: Comfortable and Conversant
HEENT: Anicteric and Other (Lips appears very dry)
Respiratory: Rales (Faint bilateral bases) and Non Labored Respirations
Cardiac: S1/S2, Irregular Rhythm and Tachycardia
GI: Soft and Non Tender
Rectal: Deferred by Provider
Musculoskeletal: No Clubbing, No Cyanosis and Other (Bilateral BKAs)
Skin: Warm and Dry
Neuro: Awake, Alert, Oriented and Nonfocal/grossly intact
Psych: Calm
Laboratory Results
-
08/24/24 16:12
08/24/24 16:12
Laboratory Results
Lactic Acid 2.1 mmol/L (0.7-2.0) H 08/24/24 16:52
Total Bilirubin 0.9 mg/dl (0.2-1.3) 08/24/24 16:12
AST 72 U/L (17-59) H 08/24/24 16:12
ALT 31 U/L (0-50) 08/24/24 16:12
Alkaline Phosphatase 143 U/L (38-126) H 08/24/24 16:12
Data Reviewed
-
Lab Data: Labs Reviewed by me
Old Records: Reviewed
Impression/Plan
-
Septic Shock, unclear source of infection
-Admit to ICU
-Transition Levophed to Kranthi-Synephrine due to significant tachycardia
-CXR with questionable pneumonia, but no significant respiratory symptoms - Chronic LLE Wound does not appear infected
-Await urinalysis / urine culture
-Await blood cultures
-Continue vancomycin and Zosyn
-Consult Infectious Disease
Acute Kidney Injury likely due to hypotension in setting of sepsis
-Hold diuretics
-Continue IVFS
-Recheck labs in AM
Severe Metabolic Acidosis
-Give sodium bicarbonate 50meEq IV Now
-Continue sodium bicarbonate infusion
-Recheck labs in AM
Paroxysmal Atrial Fibrillation, currently in rapid A-fib in setting of sepsis
-Transition to Kranthi-Synephrine
-Hopefully rate will improve as fever improves and with fluid resuscitation
-Eliquis on hold due to thrombocytopenia
Neutropenia / Thrombocytopenia, likely secondary to Sepsis
-Hold Eliquis due to thrombocytopenia
-Continue neutropenic precautions
-Monitor counts closely
Peripheral Arterial Disease s/p Bilateral BKAs
-Consult wound care for non-healing LLE wound
-Continue aspirin
Chronic Heart Failure with Recovered EF
-Hold Farxiga, Entresto, and Spironolactone
-Monitor Daily Weights
Hyperlipidemia
-Continue atorvastatin
Hx Tachy-Shree Syndrome s/p Permanent Pacemaker
Hx Left Atrial Appendage Thrombus
DVT proph: Eliquis when platelet count improves
Code Status; Full Code
[2024-08-24] MEDS: ZOSYN 100 IV (18:36)
[2024-08-24 18:41] LABS: Urine Albumin 4+ (Neg - Trace); Urine Bilirubin Negative (Negative); Urine Character Slightly Cloudy (Clear); Urine Color Yellow; Urine Glucose Negative (Negative); Urine Ketone Negative (Negative); Urine Leukocyte 1+ (Negative); Urine Nitrite Negative (Negative); Urine Occult Blood 4+ (Negative); Urine Specific Gravity 1.015 (<1.030); Urine Urobilinogen Negative (Neg - 1+)
[2024-08-24 18:53] LABS: Urine Amorphous Seen; Urine Squamous Cell 0-2 /LPF (Few)
[2024-08-24 18:54] LABS: Urine Bacteria Many (Negative); Urine Red Blood Cell >100 /HPF (0-2)
[2024-08-24] MEDS: NSS 500 IV (19:22)
[2024-08-24] MEDS: SODIUM BICARBONATE 50 MEQ IV (19:23)
[2024-08-24] MEDS: VANCOCIN 530 MG IV (19:26)
--- NOTE | 2024-08-24 20:02 | W.PN.UPDATE ---
Update Note
Progress Note Update
This is an addendum to the H&P written by Kourtney Yañez on 08/24/2024.� Patient seen and examined independently with PA.
73-year-old male past medical history of peripheral vascular disease status post bilateral BKA, group C bacteremia, chronic left lower extremity wound, dilated cardiomyopathy/HFrEF, permanent atrial fibrillation on Eliquis, left atrial thrombus,
hypertension, hyperlipidemia, rheumatoid arthritis, presenting with weakness and fever today.� Mild cough, dark urine.
Vital signs showed temperature 103, tachycardia, blood pressure of 94/70.
Labs show chronic anemia hemoglobin of 9.� Thrombocytopenia with platelets of 68.� ANC of 0.4.� Metabolic acidosis with bicarb of 14.� CHARLY with creatinine of 3.2.� Lactic acid 2.1.
Urinalysis pending.� COVID and flu negative.� Chest x-ray shows perihilar and subtle airspace opacity possibly mild pulmonary edema versus pneumonia.
EKG shows A-fib with heart rate 140s.
Patient with septic shock unclear etiology.� Although chest x-ray suggestive of pneumonia clinically patient without any evidence of pneumonia.� The left lower extremity wound does not appear infected and has been stable as per patient.
Check blood cultures.� IV fluids with bicarbonate.� Vancomycin/Zosyn.� Levophed started, will try to switch to phenylephrine given A-fib with RVR.� Fever control.� Patient with neutropenia and thrombocytopenia secondary to severe sepsis.� Strongly
suspect patient is bacteremic.� ID consulted.� Hold all diuretics and nephrotoxic medications.
Hold Eliquis due to thrombocytopenia.�
[2024-08-24 21:45] LABS: Lactic Acid 2.1 mmol/L (0.7-2.0)
[2024-08-24 22:18] LABS: Glucose - Point of Care 93 mg/dl (70-99)
[2024-08-24] MEDS: TYLENOL 650 MG PO (22:40)
[2024-08-24] MEDS: SODIUM BICARBONATE 1150 MEQ IV (22:49)
--- NOTE | 2024-08-24 22:49 | W.PN.SEPSIS ---
Sepsis
Vital Signs
Temp Pulse Resp BP Pulse Ox
103.1 F H 141 20 118/86 96
08/24/24 18:45 08/24/24 21:45 08/24/24 21:45 08/24/24 21:40 08/24/24 21:10
Physical Exam
Physical Exam:
A focused exam was performed after fluid resuscitation.
Capillary Refill
Lower Extremity:
Anny Time: Less than 3 sec
Pulse Evaluation
Popliteal:
Pulse Evaluation: Present
Additional Information
Patient does have baseline mottling.
[2024-08-24] MEDS: LOPRESSOR 2.5 MG IV (22:59)
--- NOTE | 2024-08-24 22:59 | PHA.VAN.IN ---
Assessment
- Assessment
Renal Function: Appears elevated from baseline (05/10/24 BASELINE SCR: 1.0)
Concomitant Antimicrobials: ZOSYN
- Previous Dosing Experience
Previous Regimen: 1500MG IV Q24H
Date of Regimen: 03/10/23
Provided Trough of: UNKNOWN
Provided AUC of: UNKNOWN
Patient's SCR is: Elevated compared to previous dosing experience (03/10/23 SCR = 0.6)
Patient's weight is: Elevated compared to previous dosing experience (03/10/23 WT = 58.6 KG)
Plan
- Plan
Initial / Loading Dose: 1500MG
Maintenance Regimen: DOSING BY RANDOM LEVELS
Monitoring: RANDOM VANCOMYCIN LEVEL 08/25/24 AM
Pharmacokinetics Vancomycin I
- -
Patient Age: 73
Patient Sex: Male
Vancomycin Day #: 1
Indication: Other (SEPSIS)
Requesting Provider: XOCHITL
Height / Weight:
Height 6 ft
Actual Weight 59.9 kg
Pertinent Past Medical History: BILAT BKA; CHRONIC WOUNDS
- Vital Signs / Lab Results
Temp Pulse Resp BP Pulse Ox
103.1 F H 141 20 118/86 96
08/24/24 18:45 08/24/24 21:45 08/24/24 21:45 08/24/24 21:40 08/24/24 21:10
Lab Results - Hematology
08/24/24
16:12
WBC 4.9
Lab Results - Chemistry
08/24/24
16:12
BUN 65 H
Creatinine 3.2 H
Estimated Creat Clear 18
Albumin 2.8 L
08/24/24 08/24/24
16:52 21:13
Lactic Acid 2.1 H 2.1 H
Lab Results - Urine
08/24/24
18:32
Urine Nitrite (Reflex) Negative
Leukocyte Esterase Rfl 1+ A
Urine WBC (Reflex) 11-15 A
Ur Squamous Epith Cells 0-2
Urine Bacteria (Reflex) Many A
Microbiology Results
08/24/24 16:12 Influenza Types A & B (FARIBA) - Final
Nasal Swab Negative for Influenza A & B, NAAT
Negative results must be combined with clinical observations
and patient history.
Nucleic Acid Amplification test (NAAT)performed on the
[employer] platform.
[2024-08-24 23:04] LABS: INR 1.42; PT 17.9 Sec (11.4-14.6)
[2024-08-24 23:05] LABS: APTT 39.3 Sec (23.4-35.0)
[2024-08-24 23:17] LABS: Blood Urea Nitrogen 65 mg/dl (9-20); Calcium 7.4 mg/dl (8.4-10.2); Carbon Dioxide 14 mmol/L (22-30); Chloride 113 mmol/L (98-107); Estimated Creatinine Clearance 19 ml/min; Glucose 99 mg/dl (70-99); Magnesium 1.5 mg/dl (1.6-2.3); Phosphorus 4.9 mg/dl (2.5-4.5); Potassium 4.4 mmol/L (3.5-5.1); Sodium 141 mmol/L (135-145)
--- NOTE | 2024-08-24 23:30 | PTCARENOTE ---
Received patient AAOx3, following commands, denying pain. Afib with RVR 150s-170s, on 8 mcg of norepinephrine, drip turned off after 20 minutes, pressures stable at 110s/90s. Slight fever 100.6, tylenol given. 2.5 mg metoprolol given, BP dropped to
70s-80s/50s-60s with MAPs in the 60s, started on neosynephrine drip. Mottled legs and hands b/l, patient reports this is baseline and skin always looks like this. B/l BKA, positive femoral pulses b/l. 93% on room air, lung sounds diminished
throughout with crackles in the bases. Abdomen soft, round, nontender, hypoactive bowel sounds. Urinal to void, carmencita urine. Left inner knee wound dressing CDI. DTI on right buttock and pressure ulcer on sacrum, foam applied and WOC consulted. PIVs
patent, WNL. Bicarb drip started. Call maynard within reach.
[2024-08-24] MEDS: NEO-SYNEPHRINE 250 IV (23:46)
[2024-08-25] VITALS (68 sets, daily range): BP systolic 69–153; BP diastolic 51–122; BMI 18.1
--- NOTE | 2024-08-25 00:30 | W.PN.UPDATE ---
Addendum entered and electronically signed by EDISON Robles 08/25/24 02:09:
Patient went into SVT (165 to 170 bpm) started on amiodarone drip due to poor hemodynamics, converted to afib 110 to 120bpm.
Original Note:
Update Note
Progress Note Update
Patient's afib increased to over 160 bpm, blood pressure was stable at 118/90. Trialed 2.5mg of Lopressor (Patient on metoprolol at home). Heart rate dropped into 130s, however blood pressure decrease requiring patient to be started patient on
SARAH Drip. Blood pressure responded appropriately
[2024-08-25] MEDS: MAGNESIUM SULFATE 50 IV (01:26)
[2024-08-25] MEDS: ZOSYN 50 IV ×3 (01:29→17:45)
[2024-08-25] MEDS: CORDARONE 103 MG IV ×2 (01:53→17:45)
[2024-08-25] MEDS: CORDARONE 518 MG IV ×2 (01:55→21:15)
--- NOTE | 2024-08-25 05:23 | PTCARENOTE ---
Patient converted from afib to SVT, amio bolus given and started on amio drip. BP maintained, off neosynephrine since 129. Mag repleted, labs sent. On 4 liters nasal cannula saturating 95%. Otherwise patient assessment unchanged from previous, call
maynard within reach.
[2024-08-25 06:04] LABS: Lactic Acid 2.2 mmol/L (0.7-2.0)
[2024-08-25 06:05] LABS: Hematocrit 30.2 % (39.0-52.0); Hemoglobin 9.9 g/dL (13.0-18.0); Mean Corp Hgb Conc. 32.8 g/dL (33.0-37.0); Mean Corpuscular Hgb 28.3 pg (27.0-31.0); Mean Corpuscular Volume 86.3 fL (80.0-94.0); Mean Platelet Volume 8.7 fL (7.4-10.4); Platelet Count 66 10^3/uL (130-400); Red Cell Dist. Width 19.5 % (11.5-14.5); White Blood Cell Count 3.2 10^3/uL (4.8-10.8)
[2024-08-25 06:09] LABS: Vancomycin Random 17.9 ug/ml
[2024-08-25 06:14] LABS: ALT (SGPT) 30 U/L (0-50); AST (SGOT) 67 U/L (17-59); Albumin 2.5 g/dl (3.5-5.0); Alkaline Phosphatase 110 U/L (38-126); Blood Urea Nitrogen 65 mg/dl (9-20); Calcium 6.9 mg/dl (8.4-10.2); Carbon Dioxide 15 mmol/L (22-30); Chloride 110 mmol/L (98-107); Estimated Creatinine Clearance 19 ml/min; Glucose 100 mg/dl (70-99); Magnesium 1.8 mg/dl (1.6-2.3); Potassium 4.4 mmol/L (3.5-5.1); Sodium 137 mmol/L (135-145); Total Protein 6.6 g/dl (6.3-8.2)
[2024-08-25] MEDS: CALCIUM GLUCONATE 130 MG IV (06:51)
--- NOTE | 2024-08-25 07:58 | W.PN.HOSP.TC ---
Addendum entered and electronically signed by Reggie Gage DO 08/25/24 13:25:
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
Unclear if he ever followed up with heme/onc in the office.
Will consult hematology.
updated on the phone.
Original Note:
Today's Communication/Plan
-
Franco catheter
Bicarb infusion
Continue antibiotics
Await cultures
Vascular surgery consult
Assessment / Plan
Assessment / Plan
Gen-AAOx3, NAD
HEENT-NC, AT, anicteric, clear oral mm
Neck-supple
CV-reg, no M, +S1/S2
Lungs-clear B/L
Abd-soft, NT, ND
Ext-no edema
Musculoskeletal-no cyanosis, clubbing, bilateral BKA
Skin-warm and dry, large left leg medial wound with superficial necrosis
Neuro-grossly non-focal
Psych-calm, cooperative
Septic shock -differential diagnosis for source of sepsis includes UTI versus left leg wound versus pneumonia versus other etiology. Hemodynamically improved, vasopressors on hold. Continue IV fluids, antibiotics. Await cultures.
Admission chest x-ray, 1 view, showed perihilar interstitial and subpleural airspace opacity. Possible mild pulmonary edema versus pneumonia.
Left medial leg wound -will need debridement. Consult vascular surgery. Could be source of sepsis.
Pancytopenia -baseline thrombocytopenia with platelet count of 90,000 in April of this year, currently 66,000. Platelet count could be lower now due to sepsis versus other etiology. Leukopenia and anemia noted. ANC 400 on admission.
Rapid atrial fibrillation -rapid rates due to critical illness. SVT last night noted. Amiodarone IV initiated last night. Cardiology consulted. Eliquis on hold for thrombocytopenia.
CHARLY with anion gap metabolic acidosis -source of CHARLY likely due to septic shock, ATN. Lactic acidosis due to sepsis. Continue IV fluid support. Place Franco catheter. Nephrology consult if renal function worsens.
Continue sodium bicarb and IV fluids. Bicarb 15 this morning.
Hypocalcemia -calcium 6.9 this morning, albumin 2.5, corrected calcium 8.1. Treated with 3000 mg IV calcium gluconate this morning.
Hypomagnesemia -improved.
Hyperphosphatemia
PAD -s/p bilateral BKA. Has prosthesis.
Sick sinus syndrome -s/p permanent pacemaker.
Chronic heart failure with recovered EF
Essential hypertension -currently in shock, hold antihypertensives.
Hyperlipidemia
Rheumatoid arthritis
Full code
Anticipated Discharge: > 48 hours
Subjective/Interval History
-
Date of Service: August 25, 2024
Patient seen and examined. No new complaints compared to last night.
Objective Data
-
Labs:
Laboratory Results
08/24/24 08/25/24
22:47 05:44
WBC 3.2 L
Hgb 9.9 L
Hct 30.2 L
Plt Count 66 L
PT 17.9 H
INR 1.42
APTT 39.3 H
Sodium 141 137
Potassium 4.4 4.4
Chloride 113 H 110 H
Carbon Dioxide 14 L* 15 L
BUN 65 H 65 H
Creatinine 3.1 H 3.1 H
Glucose 99 100 H
Calcium 7.4 L 6.9 L*
Total Bilirubin 1.0
AST 67 H
ALT 30
Alkaline Phosphatase 110
Vital Signs:
Vital Signs
Temp Pulse Resp BP Pulse Ox
98.5 F 119 20 107/69 96
08/25/24 03:52 08/25/24 06:15 08/25/24 06:15 08/25/24 05:30 08/25/24 05:45
I&O
08/24/24 08/25/24 08/26/24
06:59 06:59 06:59
Intake Total 1296.5 / 1296.5
Output Total 350 / 350
Balance 946.5 / 946.5
Review of Systems
-
History Source: Patient
All other systems: Reviewed and negative
--- NOTE | 2024-08-25 08:42 | CON.VAS ---
Consultation
Consultation Request
Date/Time Consultation Performed: 08/25/2024 8:40 AM
Performing Provider: Claude
Reason for Consultation: Nonhealing left medial knee wound
Medical History
-
Chief Complaint: Fatigue, weakness
History of Present Illness:
73-year-old male with past medical history PAD status post bilateral BKA's, A-fib, CHF, hypertension, left atrial appendage thrombus, thrombocytopenia. Patient presented to [facility] last evening for fatigue and weakness x 2 to 3 days. Patient
had developed high fever yesterday which prompted this ER visit. Denies any recent illnesses. Patient has chronic left lower extremity medial knee wound since April followed outpatient by Dr. Bustamante. Patient denies any changes to the wounds
appearance. Denies pain to the site.
Patient admitted for septic workup. Temps to 103 overnight. Lactic acid 2.2, creatinine 3.1. Questionable PNA on x-ray with no respiratory symptoms. Urine culture pending. Overnight patient went into V. tach and converted to A-fib with RVR on
amiodarone this morning.
Vascular consult for possible source of sepsis left leg wound vs pneumonia vs UTI.
Patient seen at bedside this a.m. with Dr. Arce. Left leg wound mostly dry eschar, no odor, no fluctuance, surrounding skin intact no erythema. Patient denies pain to site. Tenderness with palpation. Bilateral femoral pulses weak. No swelling
noted.
Vascular history:
05/21/20- R BKA
05/27/20- Drug-coated balloon angioplasty (4 mm x 120 mm inPACT DCB) and stenting (5 mm x 120 mm Innova) left superficial femoral artery
12/30/22- Balloon angioplasty of focal left peroneal artery stenosis (2.5 mm x 40 mm angioplasty balloon), Balloon angioplasty and stenting of left external iliac artery stenosis (7 mm x 57 mm express LD)
02/04/23- left lower extremity debridement
03/09/23- Left BKA
Past Medical History
Past Medical History: Other (PAD, A-fib on Eliquis, tachybradycardia syndrome status post pacemaker, CHF, left atrial appendage thrombus, hypertension, hyperlipidemia, rheumatoid arthritis, thrombocytopenia)
Past Surgical History: Other (Permanent pacemaker, left SFA stenting in 2020, bilateral BKA's)
Social History
Tobacco: Former Smoker
Personal:
Living: With Family
Family History
Family History: Other (CHF)
Allergies / Home Medications
Allergy/AdvReac Type Severity Reaction Status Date / Time
No Known Allergies Allergy Verified 08/24/24 16:05
�Medication �Instructions �Recorded �Confirmed �Type
atorvastatin 10 mg tablet 40 mg PO QPM High cholesterol 01/07/22 08/24/24 History
sacubitril 24 mg-valsartan 26 mg 1 tab PO BID Heart Failure 01/07/22 08/24/24 History
tablet (Entresto)
multivitamin 1 tab PO DAILY Supplement 12/28/22 08/24/24 History
apixaban 5 mg tablet (Eliquis) 5 mg PO BID atrial fibrillation 02/03/23 08/24/24 History
aspirin 81 mg tablet,delayed 81 mg PO DAILY Blood Clot 02/03/23 08/24/24 History
release Prevention/Tx
dapagliflozin propanediol 10 mg 10 mg PO DAILY Heart Failure 02/03/23 08/24/24 History
tablet (Farxiga)
metoprolol succinate 50 mg 12.5 mg PO DAILY AFib/Heart Failure 02/03/23 08/24/24 History
tablet,extended release 24 hr
mupirocin 2 % topical ointment 1 applic topical BID #50 grams 05/10/24 08/24/24 Rx
spironolactone 25 mg tablet 12.5 mg PO DAILY 08/24/24 08/24/24 History
Review of Systems
-
History Source: Patient
All other systems: Negative unless noted
Constitutional: Reports Fatigue and Chills
EENT: Reports No Symptoms
Respiratory: Reports No Symptoms
Cardiac: Reports No Symptoms
Vascular: Denies Leg Pain / Claudication
Abdomen/GI: Reports No Symptoms
: Reports No Symptoms
Musculoskeletal: Reports No Symptoms
Skin: Reports Other (Chronic left medial knee wound)
Neurological: Reports No Symptoms
Physical Exam
Vital Signs
Temp Pulse Resp BP Pulse Ox
98.5 F 119 20 107/69 96
08/25/24 03:52 08/25/24 06:15 08/25/24 06:15 08/25/24 05:30 08/25/24 05:45
Lab Results
08/25/24 05:44
08/25/24 05:44
Physical Exam
General: No Apparent Distress and Chills
HEENT: Normocephalic and Atraumatic
Respiratory: Non Labored Respirations
Cardiac: Irregular Rhythm (A-fib 120s)
GI: Soft, Non Tender and Non Distended
Musculoskeletal: No Clubbing and No Edema
Skin: Warm and Other (Left medial knee wound 5 cm x 5 cm dry eschar)
Neuro: Awake, Alert and Oriented
Psych: Calm
Pulses: Bilateral Femoral: +1 (Weak)
Assessment / Plan
-
73-year-old male admitted for septic workup, leg wound versus PNA versus UTI
Plan:
- Stat noncontrast CT left lower extremity to rule out collection
- Will follow-up with patient after study
Data Reviewed
-
Labs: Labs Reviewed by me
--- NOTE | 2024-08-25 08:43 | PHA.VAN.FU ---
Vancomycin Assessment / Plan
- Assessment
Renal Function: Stable
Concomitant Antimicrobials: piperacillin/tazobactam
- Assessment - Therapeutic Drug Monitoring
Random Level: 17.9 - drawn ~10H after 1500mg loading dose
- Dosing Plan
Dosing by Level: Hold off on dosing today
- Monitoring Plan
Random Level: 08/26 0600
- Follow Up
Pharmacy will continue to follow.
Vancomycin Follow UP
- -
Patient Age: 73
Patient Sex: Male
Vancomycin Day #: 2
Indication: Other
Requesting Provider: Que Chowdhury
Pertinent Antimicrobial Allergies:
NKDA
Height / Weight:
Height 6 ft
Actual Weight 60.5 kg
IBW in k.6
Pertinent Past Medical History: BMI ~18.1, PAD, bilateral BKA
- Vital Signs / Lab Results
Temp Pulse Resp BP Pulse Ox
98.5 F 119 20 107/69 96
08/25/24 03:52 08/25/24 06:15 08/25/24 06:15 08/25/24 05:30 08/25/24 05:45
Lab Results - Hematology
08/24/24 08/25/24
16:12 05:44
WBC 4.9 3.2 L
Lab Results - Chemistry
08/24/24 08/24/24 08/25/24
16:12 22:47 05:44
BUN 65 H 65 H 65 H
Creatinine 3.2 H 3.1 H 3.1 H
Estimated Creat Clear 18 19 19
Albumin 2.8 L 2.5 L
08/24/24 08/24/24 08/25/24
16:52 21:13 05:44
Lactic Acid 2.1 H 2.1 H 2.2 H
Lab Results - Urine
08/24/24
18:32
Urine Nitrite (Reflex) Negative
Leukocyte Esterase Rfl 1+ A
Ur Squamous Epith Cells 0-2
Microbiology Results
08/24/24 16:12 Influenza Types A & B (FARIBA) - Final
Nasal Swab Negative for Influenza A & B, NAAT
Negative results must be combined with clinical observations
and patient history.
Nucleic Acid Amplification test (NAAT)performed on the
[employer] platform.
Therapeutic Drug Monitoring
Random Vancomycin 17.9 ug/ml 08/25/24 05:44
--- NOTE | 2024-08-25 08:53 | CON.CAR ---
Consultation
Consultation Request
Date/Time Consultation Requested: 08/25/24
Date/Time Consultation Performed: 08/25/24
Requesting Provider: Dr Gage
Performing Provider: Dr Coronado
Reason for Consultation: AF with RVR
Medical History
-
History of Present Illness:
73 y/o male (follows with Dr. Coronado) with HFimpEF (CM resolved), PAF on Eliquis s/p PVI 11/2022 , hx GOVIND thrombus (since resolved on REY), RA, PAD (severe- hx LSFA PCI 2020, BKA with prosthesis, now RBKA too), and pacemaker for tachybrady
syndrome who is here for for septic shock of unclear etiology. With this, he has required vasopressors. Additionally, he has had atrial fibrillation with rapid ventricular response and SVT. Amiodarone was started. Notably, he has pancytopenia
and platelets have been dropping. With this Eliquis has been put on hold. Possible sources of infection include a medial leg wound, pneumonia, and UTI. We are asked to assist with his atrial fibrillation/SVT. while on Levophed had SVT with
markedly elevated rates and hypotension. Transitioned to neosynephrine. He has no sense of his arrhythmia, but bp has been tenuous and worse when in rvr. No cp or sob. No orhtopnea, biggest compliant has been weakness.
Past Medical History
Past Medical History: Arrhythmias, CHF and Other (RA, PAD, hx GOVIND thrombus)
Social History
Tobacco: Former Smoker (quit 3 years ago)
Personal:
Living: With Family
Family History
Family History: Reviewed & Not Pertinent
Allergies / Home Medications
Allergy/AdvReac Type Severity Reaction Status Date / Time
No Known Allergies Allergy Verified 08/24/24 16:05
�Medication �Instructions �Recorded �Confirmed �Type
atorvastatin 10 mg tablet 40 mg PO QPM High cholesterol 01/07/22 08/24/24 History
sacubitril 24 mg-valsartan 26 mg 1 tab PO BID Heart Failure 01/07/22 08/24/24 History
tablet (Entresto)
multivitamin 1 tab PO DAILY Supplement 12/28/22 08/24/24 History
apixaban 5 mg tablet (Eliquis) 5 mg PO BID atrial fibrillation 02/03/23 08/24/24 History
aspirin 81 mg tablet,delayed 81 mg PO DAILY Blood Clot 02/03/23 08/24/24 History
release Prevention/Tx
dapagliflozin propanediol 10 mg 10 mg PO DAILY Heart Failure 02/03/23 08/24/24 History
tablet (Farxiga)
metoprolol succinate 50 mg 12.5 mg PO DAILY AFib/Heart Failure 02/03/23 08/24/24 History
tablet,extended release 24 hr
mupirocin 2 % topical ointment 1 applic topical BID #50 grams 05/10/24 08/24/24 Rx
spironolactone 25 mg tablet 12.5 mg PO DAILY 08/24/24 08/24/24 History
Review of Systems
-
All other systems: Negative unless noted
Physical Exam
Vital Signs
Temp Pulse Resp BP Pulse Ox
98.5 F 119 20 107/69 96
08/25/24 03:52 08/25/24 06:15 08/25/24 06:15 08/25/24 05:30 08/25/24 05:45
Lab Results
08/25/24 05:44
08/25/24 05:44
Physical Exam
General: Well Developed and Well Nourished
HEENT: Normocephalic and Anicteric
Respiratory: Clear and Crackles (bibasilar); Negative Wheezes or Rhonchi
Cardiac: S1/S2 and Regular Rhythm; Negative Peripheral Edema (b/l bka)
GI: Soft
Neuro: AO x 3
Impression / Plan
-
Presentation: 73 y/o male (follows with Dr. Coronado) with HFimpEF (CM resolved), PAF on Eliquis s/p PVI 11/2022 , hx GOVIND thrombus (since resolved on REY), RA, PAD (severe- hx LSFA PCI 2020, BKA with prosthesis, now RBKA too), and pacemaker for
tachybrady syndrom who is here for for septic shock of unclear etiology.
Septic shock of unknown etiology:
- Possible sources pneumonia, UTI versus leg wound
- Tmax in last 24 hours 103.1 currently 101.5 Fahrenheit
- No ideal choice of vasopressor given his history of PAD and SVT. Blood pressure is tenuous. Could consider trial of vasopressin.
Atrial fibrillation, paroxysmal/SVT:
-hx ablation 12/03/22
- rates in the setting of acute septic shock.
-IV amiodarone began, complete 24-hour load, then will initiate amiodarone 400 mg twice daily. Explained to patient we will try to use this transiently and discontinue as an outpatient once fully recovered.
-Currently Eliquis on hold due to platelets dropping, would be very hesitant to continue to hold Eliquis in light of his prior history of extensive left atrial thrombus.
- Discussed with team, I would prefer we trial heparin drip while trying to determine source of infection and thrombocytopenia. While platelets are low they now are stable.
- Will order
Acute kidney injury: In the setting of septic shock
-Hold nephrotoxic agents
HFimpEF:
-Chronic, does not appear to be volume overloaded
GDMT as tolerated:
-JENNIFER/ARB/ARNI: Typically on Ddhgyrpj15/26 twice daily
-SGLT2 inhibitor: Typically on Farxiga
-Aldosterone agonist: Typically on spironolactone
-Beta stas: Typically on metoprolol succinate
PAD status post bilateral BKA's: Typically on aspirin with his Eliquis due to prior interventions
History of tachybradycardia syndrome status post dual-chamber pacemaker ([employer]): Last device check 08/21/2024, AP 68% V paced less than 1%, 56 episodes of A-fib max 11 hours on 07/01/2024
Rheumatoid arthritis
Data reviewed:
TTE 12/29/2022 normal LVEF at 65 to 70%, no significant valve disease.
Overall high risk situation with septic shock being a threat to his life. Total critical care time spent today was 45 minutes reviewing record, developing and communicating his plan.
Data Reviewed
-
EKG: Tracing Personally Visualized and interpreted (EKG once 08/25/2024 at 1: 18 a.m. SVT at 168 bpm incomplete left bundle branch block, 08/24/2024 1602 atrial fibrillation with septal infarct pattern compared to 03/06/2023 rate is increased)
Radiology: Image Personally Visualized and interpreted (On my review of chest x-ray no heart failure) and Report Reviewed by me (Perihilar interstitial and subtle airspace opacity. Possible mild pulmonary edema versus pneumonia. However, no focal
dense consolidation.)
--- NOTE | 2024-08-25 08:56 | CON.INTV ---
Consultation
Consultation Request
Date/Time Consultation Requested: 08/25/2024- 7 AM
Date/Time Consultation Performed: 04/27/2024- 7:30 AM
Requesting Provider: hospitalist
Performing Provider: Dr. Greene
Reason for Consultation: sepsis
Medical History
-
Chief Complaint: sepsis
History of Present Illness:
73-year-old former smoking male with history of hypertension, PAD, RA, PAF, CHF, PAD status post bilateral BKA's and permanent pacemaker who presented with weakness found to be hypotensive and probably septic-senior formulation scientist consulted for
sepsis/critical care management 08/25/2024. He denies any shortness of breath at rest, chest pain, chest congestion, productive cough, abdominal pain or new weakness. He has generalized weakness and no nausea.
Past Medical History
Past Medical History: None ( Hypertension. PAD status post bilateral BKA's. PAF. Tachybradycardia/permanent pacemaker. CHF with recovered EF. Left atrial appendage thrombus. Hyperlipidemia. Rheumatoid Tritus. Chronic thrombocytopenia. Left
lower extremity stent.)
Social History
Tobacco: Former Smoker ( [id number] quit 5 years ago)
Alcohol: None
Drug: None
Personal:
Living: With Family
Occupational Exposures: no known asbestos exposure
Environmental Exposures: no known tuberculosis exposure
Family History
Family History: Reviewed & Not Pertinent
Allergies / Home Medications
Allergies
Allergy/AdvReac Type Severity Reaction Status Date / Time
No Known Allergies Allergy Verified 08/24/24 16:05
Home Medications
�Medication �Instructions �Recorded �Confirmed �Last Taken �Type
atorvastatin 10 mg tablet 40 mg PO QPM High cholesterol 01/07/22 08/24/24 08/23/24 History
sacubitril 24 mg-valsartan 26 mg 1 tab PO BID Heart Failure 01/07/22 08/24/24 08/23/24 History
tablet (Entresto)
multivitamin 1 tab PO DAILY Supplement 12/28/22 08/24/2408/23/25 History
apixaban 5 mg tablet (Eliquis) 5 mg PO BID atrial fibrillation 02/03/23 08/24/24 08/23/24 History
aspirin 81 mg tablet,delayed 81 mg PO DAILY Blood Clot 02/03/23 08/24/24 08/23/24 History
release Prevention/Tx
dapagliflozin propanediol 10 mg 10 mg PO DAILY Heart Failure 02/03/23 08/24/24 08/23/24 History
tablet (Farxiga)
metoprolol succinate 50 mg 12.5 mg PO DAILY AFib/Heart Failure 02/03/23 08/24/24 08/23/24 History
tablet,extended release 24 hr
mupirocin 2 % topical ointment 1 applic topical BID #50 grams 05/10/24 08/24/24 08/23/24 Rx
spironolactone 25 mg tablet 12.5 mg PO DAILY 08/24/24 08/24/24 08/23/24 History
Review of Systems
-
Unable to Obtain full review of systems at this time due to: Other ( per HPI)
Vitals / Labs / Diagnostic Testing
Vital Signs
Temp Pulse Resp BP Pulse Ox
98.5 F 119 20 107/69 96
08/25/24 03:52 08/25/24 06:15 08/25/24 06:15 08/25/24 05:30 08/25/24 05:45
Lab Data
08/25/24 05:44
08/25/24 05:44
Laboratory Results
08/24/24
22:47
PT 17.9 H
INR 1.42
APTT 39.3 H
Microbiology
08/24/24 16:12 Nasal Swab Influenza Types A & B (FARIBA) - Final
Negative for Influenza A & B, NAAT
Negative results must be combined with clinical observations
and patient history.
Nucleic Acid Amplification test (NAAT)performed on the
[employer] NOW platform.
Diagnostic Testing:
Physical Exam
-
Exam:
well-nourished and well-developed in no apparent distress
HEENT-atraumatic, normocephalic
Neck-supple, no JVD, no bruit
Heart-regular rate and rhythm-no murmurs, rubs or gallops
Chest-clear to auscultation, no wheezes, crackles
Back-no tenderness
Abdomen-soft, nontender, nondistended, no hepatosplenomegaly
Extremities--bilateral BKA
Integument-intact, no rashes, lesions or ecchymosis
Neurology-alert and oriented, nonfocal motor and sensory exam
Assessment
-
73-year-old former smoking male with history of hypertension, PAD, RA, PAF, CHF, PAD status post bilateral BKA's and permanent pacemaker who presented with weakness found to be hypotensive and probably septic-senior formulation scientist consulted for
sepsis/critical care management 08/25/2024.
Septic shock unresponsive to fluids requiring pressors
Possible pneumonia
CHARLY
Metabolic acidosis
PAF/ablation 2022
Leukopenia
Thrombocytopenia-platelet 52
Ijcila-yiupqxgodh-keftnlgs unclear-possibly chronic disease
Hypocalcemia
Lactic acidosis
Conditions present prior to admission:
Hypertension.
PAD status post bilateral BKA's.
PAF.
Tachybradycardia/permanent pacemaker.
CHF with recovered EF.
Left atrial appendage thrombus.
Hyperlipidemia.
Rheumatoid Arthritis
Chronic thrombocytopenia.
Left lower extremity stent.
Plan
Patient will be admitted to medical intensive care unit for persistent hypotension despite fluid resuscitation requiring pressors
Supplement oxygen as needed
High flow oxygen if needed
BiPAP if necessary
Intubate and mechanically ventilate if necessary
Aspiration precautions
Nebulizers if needed
Obtain cultures
Empiric antibiotics-vancomycin and Zosyn initiated
Consider Infectious disease consultation
Monitor leukocytosis
Fluid resuscitation with 30 mL/kg crystalloid-preferably lactated ringer-(less CHARLY) with subsequent boluses as needed
Monitor lactate
Follow CVP if possible
Attempt noninvasive bedside tissue perfusion evaluation to see if fluid bolus responsive
Measure pulse pressure and stroke volume variation if patient on ventilator, passively breathing without arrhythmia and with temporary large tidal volume ventilation and if > 13% then likely fluid bolus responsive
If patient active then consider measuring bedside leg lift for 3 minutes and if cardiac output increases or if there is a rise of 2-4 on end-tidal CO2 then fluid bolus
If bedside ultrasound available then measure IVC diameter variation to evaluate for fluid bolus responsiveness
Begin pressors as needed for MAP goal of 65-Norepinephrine first, then Vasopressin and consider Angiotensin II if continues to be hypotensive
Consider methylene blue if available-specific inhibitor of induced nitric oxide synthase iNOS and its downstream enzyme soluble guanylate cyclase-noninferiority study shown to reduce time to vasopressor discontinuation, decreased ICU length of stay,
hospital stay but no change in mortality-published Critical Care 07/06/2022
If persistently hypotensive then consider checking random cortisol-hydrocortisone if random less than 3, if 3-15 then consider ACTH stimulation test
If persistently hyperthermic then correcting hyperthermia can decrease pressor requirements, increased chances of reversal of shock and decrease mortality
Vascular surgical consult
CT lower extremity summarized below
Cardiology consultation
Amiodarone
Atrial fibrillation rate control
Eliquis on hold due to platelets dropping-cardiology hesitant to hold Eliquis in light of history of extensive left atrial thrombus
Heparin drip recommended
Monitor renal function
Nephrology evaluation
DVT prophylaxis
Early nutrition if possible
Early mobilization/bedside range of motion
Outpatient pulm evaluation-PFTs, yearly low-dose lung cancer screening CT
Critical care statement: A total of 55 minutes of critical care time was provided for this patient today. This includes management of unstable vital signs, evaluation of the patient at bedside, reviewing the patient's pertinent medical records
including radiographs, microbiology, laboratory evaluations, and discussion with primary team, consultants, pharmacy, nutrition, physical therapy, case management, charge nurse, critical care nursing, and respiratory therapy.
Diagnostic data:
Chest x-ray 08/24/08/24/2024-perihilar interstitial subtle airspace opacification CHF versus pneumonia
CT lower extremity 08/25/2024-no drainable fluid collection within the left lower extremity, no convincing evidence for osteomyelitis, mild fat stranding and soft tissue prominence in the perirectal presacral space. Mild fecal retention within the
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
Echocardiogram 12/29/2022-EF 65-70%, no valvular disease
Data Reviewed
-
EKG: Report reviewed by me
Radiology: Report reviewed by me
CT Scan: Report reviewed by me
Medical Tests (Nuc Med, Echo etc): Report reviewed by me
Labs: Labs reviewed by me
Old Records: Reviewed
Critical Care Time (in minutes): 55
[2024-08-25] MEDS: TYLENOL 650 MG PO ×2 (09:00→15:41)
[2024-08-25] MEDS: ASPIR LOW (ENTERIC COATED) 81 MG PO (09:00)
--- NOTE | 2024-08-25 09:13 | W.PN.UPDATE ---
Addendum entered and electronically signed by Pk Arce MD 08/25/24 12:26:
I had reviewed CT scan earlier. There is no fluid collection or significant stranding deep to the site of the chronic eschar/dry gangrene or wound medial left knee area. Rather unimpressive. I cannot tell if there is any bony contour abnormality
that would suggest osteomyelitis. Would await radiologist interpretation regarding that.
Original Note:
Update Note
Progress Note Update
Seen and examined with CAROLINE Pinto. Full consultation to follow. Seen urgently in the ICU. Known to vascular service status post bilateral lower extremity BKA's. Has had chronic left medial knee area wound. Follows with wound care regarding this.
Presented overnight with clinical signs of sepsis. Initially hypotension, tachycardia. He denies any pain at the medial wound site. He denies any other respiratory symptoms or dysuria. On exam/he is awake and alert. He is not confused, he is
oriented. Non-lethargic. He is febrile still at 101.5. Some shaking chills noted. Left medial thigh dry gangrene. He has tenderness over the area of dry gangrene. I cannot elicit definitive wet gangrene deep. When I scraped the eschar/dry
gangrene off, there appears to be reddened tissue deep to there. However limited evaluation secondary to discomfort. No arnaud purulence. There is no erythema surrounding the site. Plan/ Sepsis. Not definitively clear what the etiology is here.
Certainly the wound in the left medial knee area could be the cause. However he has no pain at rest only tenderness. And in fact with tenderness that suggest patency of the subcutaneous nerves which less may indicate that to be the site of
infection. In addition no wet gangrene that I can ascertain. His urinalysis does demonstrate many bacteria as well. Therefore this may be a UTI/urosepsis, and shaking chills may go along with that. He is tachycardic off pressors currently.
Blood pressure is maintained. No mental status changes. Continue ICU close monitoring, continue broad-spectrum IV antibiotics, agree with Franco catheter placement. Stat noncontrast CT (renal dysfunction) of left lower extremity to evaluate for
any subcutaneous emphysema or other signs/findings that may be suggestive of wound related sepsis. I did discuss with him that if this is the source he may end up requiring twnrd-hyb-susw amputation as there is likely involvement of the bone.
--- NOTE | 2024-08-25 09:30 | PTCARENOTE ---
Rec'd pt at 0800 awake alert and oriented resting in bed. Overall states he feels a little better than yesterday. Denies pain- states he is just cold. Temp 101.5 oral this am. Medicated with Tylenol 650 mg po at 0900. Speech is sl garbled at times
but understandable. MOYER. pt with contractures of bilateral hands and fingers. Bilateral BKA's. Skin is pale overall but legs from knees to bilat stumps are mottled and cool. Foam dressings intact on sacrum and L inner medial leg near knee. Vascular
surgery in to examine L leg wound. CT scan ordered. Respirs are shallow but non-labored on 4L nc with sats of 94-95%- BS are in general decreased throughout with crackles 1/3 up bilaterally posteriorly. Coughs one time with first sip of liquids but
not after. Monitor AFib with rates in the 115-120 range at rest but up to 150 with activity. Amiodarone decreased at 0800 to 0.5 mg/min infusing via L forearm #20 IV site. Denies chest pain. + pulses. + weak femoral pulses to palp. VS as documented.
ABd is soft with + BS. Will keep pt per surgery NPO until after CT scan. Denies nausea. Pt denied need to void this am. Pool cath ordered and #16 thermistor pool placed for return of tea colored sl cloudy urine- 60 mls. IV with 150 meq Bicarb
infusing via R FA #18 at 100 ml/hr. Ca++ gluconate rider completed and L posterior forearm #20 capped. Complete CHG bath given. Mouth care given. Repostioned.
[2024-08-25] MEDS: SODIUM BICARBONATE 1150 MEQ IV ×2 (09:56→21:08)
--- NOTE | 2024-08-25 10:30 | PTCARENOTE ---
Pt taken to CT scan for CT of the L lower extremity. BP currently running lower than it has been 78/60- 78/56- MAP's 64-66. Temp via Thermistor pool 103- axillary temp 102.3. Call maynard in reach. Urine out put 20 mls over past hr.
[2024-08-25] MEDS: HEPARIN 4200 UNITS IV (11:58)
[2024-08-25] MEDS: HEPARIN 25000 UNITS/250 ML IV (11:59)
--- NOTE | 2024-08-25 12:15 | PTCARENOTE ---
Wound care in to see pt and examine wounds- see documentation. Dr. Villela in to see pt and updated. #22 protective placed via the R hand- excellent blood return. Per heparin labs sent as ordered as well as LA. Heparin 4200 units IV given via R hand
IV site then Heparin gtt started at 750 units/hr via R hand IV site. Pts Bp since 1000 has been running in the 70-80's and maps have struggled to stay >65- as such Levophed restarted via L posterior forearm IV site at 2 mcg-will titrate as needed to
keep MAP >65. Pts only complaint is that he is hungry. Urine output is marginal- sl cloudy carmencita/tea colored. Call maynard in reach.
[2024-08-25 12:17] LABS: Hematocrit 26.3 % (39.0-52.0); Hemoglobin 8.6 g/dL (13.0-18.0); Mean Corp Hgb Conc. 32.7 g/dL (33.0-37.0); Mean Corpuscular Hgb 27.8 pg (27.0-31.0); Mean Corpuscular Volume 85.1 fL (80.0-94.0); Mean Platelet Volume 10.1 fL (7.4-10.4); Platelet Count 52 10^3/uL (130-400); Red Blood Cell Count 3.09 10^6/uL (4.70-6.10)
[2024-08-25 12:22] LABS: APTT 38.8 Sec (23.4-35.0)
--- NOTE | 2024-08-25 12:26 | CM ---
Patient seen at bedside
IA Completed
Dx: Sepsis
PMH: bl bka, afib, chf, htn, RA, PAD
chronic wound L medial knee-goes to wound center
CT scan today
Lives at home with in a rancher with a ramp
DME: Walker, wheelchair, shower chair
PCP: Dr Muñiz
Pharmacy: [facility]
PLAN: TBD, CM to follow hospital progression for needs/disp planning
[2024-08-25 12:30] LABS: Lactic Acid 1.4 mmol/L (0.7-2.0)
--- NOTE | 2024-08-25 12:48 | WOUNDNOTE ---
LEFT MEDIAL LEG
--- NOTE | 2024-08-25 12:50 | WOUNDNOTE ---
BILAT LE, Posterior view
--- NOTE | 2024-08-25 12:51 | WOUNDNOTE ---
[facility] RN note: Patient admitted with sepsis
See H&P for complete history.
PMH: Per Physician note, peripheral Arterial Disease s/p Bilateral BKAs
Paroxysmal Atrial Fibrillation
Tachy-Shree Syndrome s/p Permanent Pacemaker
Chronic Heart Failure with Recovered EF
Left Atrial Appendage Thrombus
Essential Hypertension
Hyperlipidemia
Rheumatoid Arthritis
Thrombocytopenia
Wound Location and type/assessment: Patient admitted with stage 2 PI to sacrum and stage 1 to coccyx. See worklist for measurements and details. Vascular following for left LE wound, awaiting CT results.
Appetite: Fair
Pressure redistribution devices in place: Centrella Max Air, turning schedule, offing-loaded of bilateral BKA/s
Plan: Keep sacral wound covered with silicone border foam and continue off-loading/turning. Patient has several comorbidities and is receiving vasopressors. Wounds may worsen and new wounds my evolve even with optimal care.
Will confirm orders with hospitalist and update nurse. Updated care plan and will follow as needed.
Note to case management of equipment requested for discharge:
Recommend follow up at wound care center upon discharge.
--- NOTE | 2024-08-25 14:00 | PTCARENOTE ---
Urine output has been marginal- pt stated currently that he felt wet - pool leaked a mod amt of urine around the catheter. Despite checking balloon- still leaking a small amt around the catheter.. Did bladder scan pt and no additional urine
appeared in bladder. Pool removed and new #16 pool-non thermistor placed for return of same tea colored urine scant amt. Platelets on baseline Heparin labs resulted as 52- Updated Cliff Lundy and Jane. Temp down to 98.4 axilarry
and 97.8 oral. Pts in to see pt and updated. Dr. Romero in to see pt. Bp better on 2 mcg of Levophed. Currently 113/81
--- NOTE | 2024-08-25 14:33 | W.CON.NEPH ---
Consultation
-
Date/Time Consultation Requested: August 25, 2024 at 1300
Date/Time Consultation Performed: August 25, 2024 at 230
Requesting Provider: Dr. Gage
Performing Provider: Dr. Romero
Reason for Consultation: Acute kidney injury
Medical History
-
Chief Complaint: Acute kidney
History of Present Illness:
73 y/o male past medical history of PAD, A-Fib, CHF, HTN and RA who presents with weakness and fever. He presents with acute kidney injury and ICU admission hypotension on pressors. Franco catheter placed oligoanuric.
Patient is overall vasculopath status post bilateral lower extremity amputations.
Renal consult for acute kidney injury and metabolic acidosis.
In April 2024 his renal function was normal with a creatinine of 1.
He presents with a creatinine of 3.2 bicarbonate of 14 thrombocytopenia and anemia and leukopenia.
Past Medical History
PAD, A-Fib, CHF, HTN and RA
Family History
No renal disease
Allergies / Home Medications
Allergy/AdvReac Type Severity Reaction Status Date / Time
No Known Allergies Allergy Verified 08/24/24 16:05
�Medication �Instructions �Recorded �Confirmed �Type
atorvastatin 10 mg tablet 40 mg PO QPM High cholesterol 01/07/22 08/24/24 History
sacubitril 24 mg-valsartan 26 mg 1 tab PO BID Heart Failure 01/07/22 08/24/24 History
tablet (Entresto)
multivitamin 1 tab PO DAILY Supplement 12/28/22 08/24/24 History
apixaban 5 mg tablet (Eliquis) 5 mg PO BID atrial fibrillation 02/03/23 08/24/24 History
aspirin 81 mg tablet,delayed 81 mg PO DAILY Blood Clot 02/03/23 08/24/24 History
release Prevention/Tx
dapagliflozin propanediol 10 mg 10 mg PO DAILY Heart Failure 02/03/23 08/24/24 History
tablet (Farxiga)
metoprolol succinate 50 mg 12.5 mg PO DAILY AFib/Heart Failure 02/03/23 08/24/24 History
tablet,extended release 24 hr
mupirocin 2 % topical ointment 1 applic topical BID #50 grams 05/10/24 08/24/24 Rx
spironolactone 25 mg tablet 12.5 mg PO DAILY 08/24/24 08/24/24 History
Review of Systems
-
Weakness and lethargy no chest pain or shortness of breath no nausea or vomiting
Physical Exam
Vital Signs
Vital Signs
Temp Pulse Resp BP Pulse Ox
101.1 F H 130 19 112/89 94
08/25/24 11:45 08/25/24 14:30 08/25/24 14:30 08/25/24 14:30 08/25/24 14:30
Lab Results
WBC 2.0 10^3/uL (4.8-10.8) L* 08/25/24 11:51
RBC 3.09 10^6/uL (4.70-6.10) L 08/25/24 11:51
Hgb 8.6 g/dL (13.0-18.0) L 08/25/24 11:51
Hct 26.3 % (39.0-52.0) L 08/25/24 11:51
Plt Count 52 10^3/uL (130-400) L D 08/25/24 11:51
eGFR 20.70 08/25/24 05:44
Phosphorus 4.9 mg/dl (2.5-4.5) H 08/24/24 22:47
Albumin 2.5 g/dl (3.5-5.0) L 08/25/24 05:44
Physical Exam
General no acute distress
HEENT no cephalic atraumatic extraocular muscle intact no scleral icterus no JVD neck supple /dry mucous membrane
lungs clear to auscultation bilateral
heart regular S1-S2 positive. Ectopy
abdomen soft nontender positive bowel sounds
extremities no edema pulses present bilateral
Neurologically nonfocal alert and oriented x 3
Skin no lesions no abrasions no petechiae
Psych normal affect no bizarre behavior
Data Reviewed
-
Radiology: Image Personally Visualized and interpreted
Labs: Labs Reviewed by me, Discussed with Nurse, Discussed with Patient and Discussed with Family
Assessment/Plan
-
73 y/o male past medical history of PAD, A-Fib, CHF, HTN and RA who presents with weakness and fever. He presents with acute kidney injury and ICU admission hypotension on pressors. Franco catheter placed oligoanuric.
Patient is overall vasculopath status post bilateral lower extremity amputations.
Renal consult for acute kidney injury and metabolic acidosis.
In April 2024 his renal function was normal with a creatinine of 1.
He presents with a creatinine of 3.2 bicarbonate of 14 thrombocytopenia and anemia and leukopenia.
Impression.
Acute kidney injury
Pancytopenia
Septic shock
Acute metabolic acidosis
A-fib
CHF preserved EF
Rheumatoid arthritis not on immune immune modulator
Plan.
Discontinue Entresto, Farxiga
Continue bicarbonate drip
Franco catheter
Broad-spectrum antibiotic
Pancytopenia suspect this is infectious etiology but need to consider microangiopathy/hematology consulted/check smear for schistocytes
Discussed with family at bedside about the possibilities of hemodialysis if urine output does not improve and they agree if needed
Continue supportive care
Total Time Spent with Patient (in minutes): 34
--- NOTE | 2024-08-25 15:28 | PTCARENOTE ---
Assisted back oob to use the bathroom. Ambulatng without difficulty.
--- NOTE | 2024-08-25 15:30 | PTCARENOTE ---
Excellent appetite for lunch although pts did relay that he was doing some coughing with eating. Noted earlier that he would cough with the first sip of a beverage- pt states it just tickles the back of his throat when he drinks initially but
didn't feel like he was choking on food or fluids. Dr. Lynn updated and speech therapy consult ordered. Temp back up to 101.7 axillary. Tylenol 650 mg po given. Franco draining small amts of tea colored -sl bloody tinged urine. No other changes.
Pts at the bedside. States he is just tired
--- NOTE | 2024-08-25 16:11 | CON.ID ---
Consultation
-
Date/Time Consultation Requested: 08/24/2024 2203
Date/Time Consultation Performed: 08/25/2024 1120
Requesting Provider: Kourtney Chowdhury
Performing Provider: Dr. Villela
Reason for Consultation: Clinical sepsis
Chief Complaint / Past History
Chief Complaint
Draining leg wound
History of Present Illness
Doc Ervin is a 73-year-old man being evaluated at the request of Kourtney Chowdhury in regards to clinical sepsis. History is obtained from chart review, along with patient interview.
The patient resides at home with his , and presented to the ER on 08/24 secondary to weakness. According to his history, he had been developing increasing weakness over the prior few days, and the day before admission developed fever, along with
chills and a mild cough. He has a history of bilateral BKA, and has been followed in the wound care center for a left medial leg wound, but notes no significant change in the area.
Workup in the emergency room did not reveal leukocytosis, but he was neutropenic (ANC = 400) and thrombocytopenic. He has been started on empiric antibiotics, and Infectious Diseases asked, and upon further antimicrobial therapy. He has been
started on pressor therapy.
At this time, he continues to feel very weak. He has continued to have fevers since admission. He denies pain. He denies any significant cough.
Past History
Additional Past Medical History:
HTN
HLD
Chronic hyponatremia
CHF
A-fib
Tachybradycardia syndrome
Rheumatoid arthritis
Psoriasis
PAD
Additional Past Surgical History:
PPM placement
Bilateral BKA
Vascular stenting
Allergy History:
No Known Allergies Allergy (Verified 08/24/24 16:05)
Medications Reviewed: Yes
Current Antibiotics:
Vancomycin
Zosyn
Social History
Tobacco: Former Smoker
Alcohol: None
Drug: None
Personal:
Living: With Family
Family History
Family History: Not Pertinent
Review of Systems
Vital Signs
Temp Pulse Resp BP Pulse Ox
101.1 F H 138 20 130/86 92
08/25/24 11:45 08/25/24 15:15 08/25/24 15:15 08/25/24 15:00 08/25/24 15:15
Physical Exam
Physical Exam
Constitutional: Acutely Ill, Chronically Ill and Non-toxic
Head: Normocephalic
Eyes: Pupils Equal, Pupils Round and No Conjunctival Hemorrhage
Oral: No Thrush and No Ulcers
Cardiovascular: Regular Rate and S1/S2; Negative S3/S4
Pulmonary: Clear; Negative Wheezes, Rales or Rhonchi
Gastrointestinal: Soft, Non Tender, Non Distended, Normal Bowel Sounds, No Rebound and No Guarding
Musculoskeletal: Other (Bilateral BKA's)
Skin: Warm and Dry; Negative Rash
Wound: Other (Left medial knee area with dry eschar; minimal malodor. Little periwound erythema.)
Neurological: Awake and Alert
Psychological: Calm
Lab / Diagnostic Study Results
08/25/24 11:51
Abs Immat Gran (auto) 0.0 10^3/uL (0-0.05) 08/24/24 16:12
Absolute Neuts (auto) 0.4 10^3/uL (1.4-6.5) L* 08/24/24 16:12
Absolute Lymphs (auto) 4.2 10^3/uL (1.2-3.4) H 08/24/24 16:12
Absolute Monos (auto) 0.3 10^3/uL (0.1-0.6) 08/24/24 16:12
Absolute Basos (auto) 0.0 10^3/uL (0-0.2) 08/24/24 16:12
Immature Gran % 0.2 % (0-0.5) 08/24/24 16:12
Neutrophils % 7.7 % (42.2-75.2) L 08/24/24 16:12
Lymphocytes % 86.2 % (20.5-51.1) H 08/24/24 16:12
Monocytes % 5.7 % (1.7-9.3) 08/24/24 16:12
Eosinophils % 0.0 % (0-6) 08/24/24 16:12
Basophils % 0.2 % (0-2) 08/24/24 16:12
PT 17.9 Sec (11.4-14.6) H 08/24/24 22:47
INR 1.42 08/24/24 22:47
Lactic Acid 1.4 mmol/L (0.7-2.0) 08/25/24 11:51
Ur Squamous Epith Cells 0-2 /LPF (Few) 08/24/24 18:32
Microbiology Results
Micro:
08/24/24 22:43 MRSA Screen - Pending
Nose
08/24/24 18:32 Urine Culture - Pending
Urine
08/24/24 16:52 Blood Culture - Pending
Blood/Venous
08/24/24 16:52 Blood Culture - Pending
Blood/Venous
08/24/24 16:12 Influenza Types A & B (FARIBA) - Final
Nasal Swab Negative for Influenza A & B, NAAT
Negative results must be combined with clinical observations
and patient history.
Nucleic Acid Amplification test (NAAT)performed on the
[employer] platform.
Imaging:
08/24/2024 CXR (portable): Diffuse patchy interstitial and subtle airspace opacity noted bilaterally, predominantly in the perihilar region. Differential includes mild pulmonary edema versus pneumonia. No focal dense consolidation is seen. Please
see full dictation for additional detail. Film personally viewed.
Assessment / Plan
Clinical sepsis
Fever
Leukopenia/neutropenia/thrombocytopenia
CHARLY
Lactic acidosis
HTN
HLD
Chronic hyponatremia
CHF
A-fib
Tachybradycardia syndrome
Rheumatoid arthritis
Psoriasis
PAD
Recommendations:
Source of suspected infection at present not clear, and may include lung or abdomen. Doubt source is the left leg eschar.
Pancytopenia is of significant concern at this time, although it appears that he has had leukopenia extending back at least through
Continue current empiric antibiotics.
Change Zosyn to 2.25 g IV every 6 hours.
Continue vancomycin. Follow levels closely to prevent nephrotoxicity
Follow pending cultures (blood, urine)
Monitor white count and temperature curve.
Patient currently on pressor therapy and critically ill in intensive care unit
����������������������������������������������������������
--- NOTE | 2024-08-25 16:30 | PTCARENOTE ---
Reblawojciecher scanned pt but unable to locate bladder on US. Repositioned. Incont a small amt of soft brown stool. VS as documented. No other changes in assessment.
[2024-08-25] MEDS: LIPITOR 40 MG PO (17:45)
--- NOTE | 2024-08-25 18:00 | PTCARENOTE ---
HR for past several hours has been mostly in the 130's- Afib in appearance. Dr. Coronado updated and at 1745 150 mg Amiodarone bolus hung/given. Amiodarone gtt remains at 0.5 mg/min. Levophed remains at 2 mcg. Labs sent as ordered including PTT.
Assessment is otherwise unchanged. Eating jello for dinner and encouraged pt to do a chin tuck with swallowing- noticed when he did this he did not cough drinking water. Speech therapy to see pt tomorrow. Repositioned.
[2024-08-25 18:34] LABS: APTT 60.7 Sec (23.4-35.0)
[2024-08-25 18:46] LABS: % Basophils 0.4 % (0-2); % Immature Granulocytes 0.9 % (0-0.5); % Lymphocytes 75.7 % (20.5-51.1); % Monocytes 6.4 % (1.7-9.3); % Neutrophils 16.6 % (42.2-75.2); Absolute Lymphocytes 1.8 10^3/uL (1.2-3.4); Absolute Monocytes 0.2 10^3/uL (0.1-0.6); Absolute Neutrophils 0.4 10^3/uL (1.4-6.5); Hematocrit 27.7 % (39.0-52.0); Hemoglobin 9.4 g/dL (13.0-18.0); Mean Corp Hgb Conc. 33.9 g/dL (33.0-37.0); Mean Corpuscular Hgb 28.3 pg (27.0-31.0); Mean Corpuscular Volume 83.4 fL (80.0-94.0); Nucleated Red Blood Cells % 0.9 % (-); Platelet Count 57 10^3/uL (130-400); Red Blood Cell Count 3.32 10^6/uL (4.70-6.10); Red Cell Dist. Width 19.1 % (11.5-14.5); White Blood Cell Count 2.4 10^3/uL (4.8-10.8)
--- NOTE | 2024-08-25 19:10 | PTCARENOTE ---
Heparin gtt increased to 950 units/hr -9.5 mls/hr via R hand IV site. Will update Dr. Romero on BMP when resulted.
[2024-08-25 19:32] LABS: Blood Urea Nitrogen 74 mg/dl (9-20); Calcium 7.4 mg/dl (8.4-10.2); Carbon Dioxide 17 mmol/L (22-30); Chloride 103 mmol/L (98-107); Estimated Creatinine Clearance 16 ml/min; Glucose 147 mg/dl (70-99); Potassium 4.4 mmol/L (3.5-5.1); Sodium 132 mmol/L (135-145)
[2024-08-25] MEDS: NSS 500 IV (21:09)
[2024-08-25] MEDS: LEVOPHED 250 IV (21:09)
--- NOTE | 2024-08-25 22:23 | PTCARENOTE ---
Received patient AAOx3, following commands, denying pain. B/l hand contractions, hands and feet mottled at baseline. Afib 120s-130s, normothermic, titrating norepinephrine to maintain MAP>65. Right chest pacemaker. On 3 liters nasal cannula
saturating 95%, lung sounds diminished throughout with fine crackles in the bases. Abdomen soft, positive bowel sounds. Franco in place, oliguric, carmencita/tea colored urine. Leaking around, bladder scanned for 14 mls. Left inner knee wound dressing
CDI. PIVs on left arm removed for PICC placement. Lines changed and connected to PICC. Amio, sodium bicarb, and heparin gtt ongoing. CHG bath done, sheets changed, repositioned. Call maynard within reach.
[2024-08-26] VITALS (32 sets, daily range): BP systolic 73–121; BP diastolic 60–87; BMI 19.5
[2024-08-26 01:15] LABS: APTT 61.8 Sec (23.4-35.0)
--- NOTE | 2024-08-26 01:54 | PTCARENOTE ---
Patient assessment unchanged from previous, resting comfortably. Call maynard within reach.
[2024-08-26] MEDS: ZOSYN 50 IV ×3 (02:08→17:18)
[2024-08-26 05:18] LABS: Hematocrit 26.2 % (39.0-52.0); Hemoglobin 8.8 g/dL (13.0-18.0); Mean Corp Hgb Conc. 33.6 g/dL (33.0-37.0); Mean Corpuscular Hgb 27.9 pg (27.0-31.0); Mean Corpuscular Volume 83.2 fL (80.0-94.0); Platelet Count 60 10^3/uL (130-400); Red Blood Cell Count 3.15 10^6/uL (4.70-6.10); Red Cell Dist. Width 18.7 % (11.5-14.5); White Blood Cell Count 2.4 10^3/uL (4.8-10.8)
[2024-08-26 05:20] LABS: ALT (SGPT) 33 U/L (0-50); AST (SGOT) 53 U/L (17-59); Albumin 2.2 g/dl (3.5-5.0); Alkaline Phosphatase 81 U/L (38-126); Blood Urea Nitrogen 80 mg/dl (9-20); Calcium 7.1 mg/dl (8.4-10.2); Carbon Dioxide 23 mmol/L (22-30); Chloride 99 mmol/L (98-107); Estimated Creatinine Clearance 17 ml/min; Glucose 112 mg/dl (70-99); Magnesium 1.9 mg/dl (1.6-2.3); Phosphorus 5.8 mg/dl (2.5-4.5); Potassium 4.2 mmol/L (3.5-5.1); Sodium 132 mmol/L (135-145); Total Bilirubin 0.8 mg/dl (0.2-1.3); Total Protein 5.9 g/dl (6.3-8.2)
[2024-08-26 05:23] LABS: Vancomycin Random 14.5 ug/ml
--- NOTE | 2024-08-26 05:23 | PTCARENOTE ---
Labs sent, patient assessment unchanged from previous. Call maynard within reach.
[2024-08-26] MEDS: SODIUM BICARBONATE 1150 MEQ IV (07:27)
--- NOTE | 2024-08-26 07:39 | W.PN.VS ---
Today's Communication / Plan
-
Discussed with Dr. Cherry
Assessment/Plan
-
73-year-old male here with sepsis source unknown
Plan:
- No drainage to left medial knee chronic wound site, surrounding skin intact, unchanged from yesterday's exam
Subjective Data
-
Date of Service: August 26, 2024
Patient seen at bedside this a.m. Patient complains of overall fatigue/weakness. No changes to the leg wound overnight.
Objective Data
-
Vital Signs
Temp Pulse Resp BP Pulse Ox
100.5 F H 125 15 89/68 96
08/26/24 07:00 08/26/24 06:15 08/26/24 06:15 08/26/24 06:05 08/26/24 06:15
Intake and Output
08/25/24 08/26/24 08/27/24
06:59 06:59 06:59
Intake Total 1296.5 / 1429.8 4919.0 / 4919.0
Output Total 350 / 350 304 / 304
Balance 946.5 / 1079.8 4615.0 / 4615.0
Intake:
Oral fluids 1040 / 1040
IV fluids (Total) 966.5 / 1099.8 3129.0 / 3129.0
Heparin 169.0 / 169.0
Levophed 142.6 / 142.6
Sterile Water For Injection 800 / 900 2400 / 2400
1000 ml 1,000 ml @ 100 mls/hr
IV .[id number] ZHANG with Sodium
Bicarbonate 150 Meq Rx#:
[id number]
amio 166.5 / 199.8 417.4 / 417.4
IV piggybacks 330 / 330 750 / 750
Output:
Urine, Franco 304 / 304
Urine, Voided 350 / 350
Other:
Number of approximated MODERATE 1
amounts of urine
Lab Results
08/26/24 04:47
08/26/24 04:47
Calcium 7.1 mg/dl (8.4-10.2) L 08/26/24 04:47
Phosphorus 5.8 mg/dl (2.5-4.5) H 08/26/24 04:47
Magnesium 1.9 mg/dl (1.6-2.3) 08/26/24 04:47
Total Bilirubin 0.8 mg/dl (0.2-1.3) 08/26/24 04:47
AST 53 U/L (17-59) 08/26/24 04:47
ALT 33 U/L (0-50) 08/26/24 04:47
Alkaline Phosphatase 81 U/L (38-126) 08/26/24 04:47
Total Protein 5.9 g/dl (6.3-8.2) L 08/26/24 04:47
Albumin 2.2 g/dl (3.5-5.0) L 08/26/24 04:47
Physical Exam
-
AAO x 3
Pale appearing
No tachypnea on nasal cannula
Tachycardic 120s
Abdomen soft nontender
Left medial knee wound site dry and unchanged
Creatinine 3.6
--- NOTE | 2024-08-26 08:02 | W.PN.ID1 ---
Date of Service
Date of Service: August 26, 2024
Today's Communication
Continue antibiotics.
Assessment / Plan
Clinical sepsis
Febrile neutropenia
- fevers ongoing
Leukopenia/thrombocytopenia
CHARLY
Lactic acidosis
HTN
HLD
Chronic hyponatremia
CHF
A-fib
Tachybradycardia syndrome
Rheumatoid arthritis
Psoriasis
PAD
Recommendations:
Source of suspected infection at present not clear, and may include lung or abdomen. Doubt source is the left leg eschar.
Continue Zosyn to 2.25 g IV every 6 hours.
Continue vancomycin for today, although if cultures do not reveal MRSA, will discontinue. Follow levels closely to prevent nephrotoxicity
Follow pending cultures (blood, urine).
Monitor white count and temperature curve.
Follow cr and Est CrCl to guide further antibiotic dosing adjustment.
Continue with supportive measures.
Await HemeOnc eval
Patient remains critically ill in ICU.
����������������������������������������������������������
Chief Complaint
-: Fever and Other (Neutropenia)
Subjective / Review of Systems
Review of Systems: Fever
Vital Signs / Physical Exam
Vital Signs
Vital Signs
Temp Pulse Resp BP Pulse Ox
100.5 F H 125 15 89/68 96
08/26/24 07:00 08/26/24 06:15 08/26/24 06:15 08/26/24 06:05 08/26/24 06:15
Physical Exam
Constitutional: Comfortable, Acutely Ill, Chronically Ill and Toxic
Eyes: No Conjunctival Hemorrhage and Sclera Anicteric
Cardiovascular: Regular Rate (tachy) and S1/S2; Negative S3/S4
Pulmonary: Symmetric; Negative Rales or Rhonchi
Gastrointestinal: Soft, Non Distended and Normal Bowel Sounds
Genito-Urinary: Franco and Clear Urine; Negative Turbid Urine or Hematuria
Musculoskeletal: Other (B/L BKA)
Wound: Other (dry eschar left medial knee; dressed.)
Psychological: Calm
Objective Data
Lab Data
Lab Results
08/26/24 04:47
08/26/24 04:47
ANC ~ 400
PT 17.9 Sec (11.4-14.6) H 08/24/24 22:47
INR 1.42 08/24/24 22:47
APTT 61.8 Sec (23.4-35.0) H 08/26/24 00:53
Estimated Creat Clear 17 ml/min 08/26/24 04:47
Lactic Acid 1.4 mmol/L (0.7-2.0) 08/25/24 11:51
Total Bilirubin 0.8 mg/dl (0.2-1.3) 08/26/24 04:47
AST 53 U/L (17-59) 08/26/24 04:47
ALT 33 U/L (0-50) 08/26/24 04:47
Alkaline Phosphatase 81 U/L (38-126) 08/26/24 04:47
Most recent labs reviewed.
Micro Results:
08/24/24 16:52 Blood Culture - Preliminary
Blood/Venous No Growth in 24 hours- Final report to follow
08/24/24 16:52 Blood Culture - Preliminary
Blood/Venous No Growth in 24 hours- Final report to follow
08/24/24 22:43 MRSA Screen - Pending
Nose
08/24/24 18:32 Urine Culture - Pending
Urine
08/24/24 16:12 Influenza Types A & B (FARIBA) - Final
Nasal Swab Negative for Influenza A & B, NAAT
Negative results must be combined with clinical observations
and patient history.
Nucleic Acid Amplification test (NAAT)performed on the
[employer] platform.
Imaging:
08/24/2024 CXR (portable): Diffuse patchy interstitial and subtle airspace opacity noted bilaterally, predominantly in the perihilar region. Differential includes mild pulmonary edema versus pneumonia. No focal dense consolidation is seen. Please
see full dictation for additional detail. Film personally viewed.
Care Review
Plan reviewed with: Physician (Hospitalist)
--- NOTE | 2024-08-26 08:12 | W.PN.INTV ---
Today's Communication / Plan
Recommendations
Maintain MAP >65-70 to help refuse organs, especially kidneys
May need to resume Levophed
Trend sCr, strict I/O
Granix started by hematology/oncology
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
Continue amiodarone drip for rapid A-fib
Heparin drip
Trend blood counts and transfuse to keep Hb >7 g/dL, platelets >20k --> he is currently not bleeding clinically
Continue ICU level care for this critically ill patient
Assessment
-
73-year-old former smoking male with history of hypertension, PAD, RA, PAF, CHF, PAD status post bilateral BKA's and permanent pacemaker who presented with weakness found to be hypotensive and probably septic-business leader consulted for
sepsis/critical care management 08/25/2024.
Septic shock unresponsive to fluids requiring pressors to sources include UTI vs pneumonia
CHARLY (baseline creatinine appears to be 1, which is where his creatinine was on 05/10/2024)
Metabolic acidosis
Rapid A-fib with history of ablation 2022
Pancytopenia with concern for leukemia
Neutropenic fever
Lactic acidosis � resolved as of 08/25/2024
Conditions present prior to admission:
Hypertension.
PAD status post bilateral BKA's.
PAF.
Tachybradycardia/permanent pacemaker.
CHF with recovered EF.
Left atrial appendage thrombus.
Hyperlipidemia.
Rheumatoid Arthritis
Chronic thrombocytopenia.
Left lower extremity stent.
Plan
Patient was admitted to medical intensive care unit for persistent hypotension despite fluid resuscitation requiring pressors
Continue supplemental oxygen and wean down as tolerated while keeping SpO2 >90-94%
High flow oxygen if needed
BiPAP if necessary
Intubate and mechanically ventilate if necessary as he is full code
Aspiration precautions
Nebulizers if needed
Hematology consulted. It is unclear what causing his pancytopenia, although he does have rheumatoid arthritis which could be contributing. Prior flow cytometry during hospitalization December revealed clonal T cells, potentially consistent with
LGL.
- Bone marrow biopsy would be very helpful -hopefully this can be obtained early next week as long as thrombocytopenia does not worsen and he remains clinically stable to transfer off ICU floor
- Hematology will add G-CSF; continue to trend neutrophil count
Cultures reviewed
Follow-up urine culture (collected 08/24 � shows NGTD)
Follow-up blood cultures (2 sets collected 08/24 � shows NGTD)
Empiric antibiotics-vancomycin and Zosyn initiated
Infectious diseases consulted � recs appreciated
Trend WBC and monitor for fevers, treating with Tylenol
Given that his serum bicarbonate level
If persistently hypotensive then consider checking random cortisol-hydrocortisone if random less than 3, if 3-15 then consider ACTH stimulation test
- Off Levophed since choreography director hours on 08/26/2024; low threshold to resume
If persistently hyperthermic then correcting hyperthermia can decrease pressor requirements, increased chances of reversal of shock and decrease mortality
Vascular surgical consulted due to chronic wound at medial left knee
CT lower extremity summarized below
Cardiology consulted
Continue amiodarone infusion
Heart rate control with goal <110
Replete K>4, Mg>2
Eliquis on hold due to platelets dropping-cardiology hesitant to hold Eliquis in light of history of extensive left atrial thrombus
He is now on heparin drip; also on ASA
Monitor renal function
Nephrology consulted - if Cr worsens then may be heading towards HD
DVT prophylaxis: heparin gtt
Early nutrition if possible
Early mobilization/bedside range of motion
Outpatient pulm evaluation-PFTs, yearly low-dose lung cancer screening CT
Continue ICU level care for this critically ill patient
Critical care statement: A total of 43 minutes of critical care time was provided for this patient today. This includes management of unstable vital signs, evaluation of the patient at bedside, reviewing the patient's pertinent medical records
including radiographs, microbiology, laboratory evaluations, and discussion with primary team, consultants, pharmacy, nutrition, physical therapy, case management, charge nurse, critical care nursing, and respiratory therapy.
Diagnostic data:
Chest x-ray 08/24/2024-perihilar interstitial subtle airspace opacification CHF versus pneumonia
CT lower extremity 08/25/2024-no drainable fluid collection within the left lower extremity, no convincing evidence for osteomyelitis, mild fat stranding and soft tissue prominence in the perirectal presacral space. Mild fecal retention within the
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
Echocardiogram 12/29/2022-EF 65-70%, no valvular disease
Subjective Dataa
Subjective Data
Date of Service:
Date of Service: August 26, 2024
Chief Complaint: Cane Burner Follow Up
Subjective:
Patient seen this morning. He has been febrile since the late afternoon of 08/24/2024. Also febrile this morning to 100.5 �F. He is awake, alert, appears well, nontoxic, and says that he feels okay with no cough, SOB, fevers or chills. He is in
rapid A-fib with heart rate 136, BP 85/67 and saturating 97% on 3 L/min nasal cannula. Currently on amiodarone drip at 0.5 mg/min and heparin drip.
Review of Systems
General: Other (Negative unless mentioned above)
Objective Data
Data Reviewed
Vital Signs / I&O / Oxygen:
Vital Signs
Temp Pulse Resp BP Pulse Ox
100.5 F H 130 19 86/73 83
08/26/24 07:00 08/26/24 10:15 08/26/24 10:15 08/26/24 10:00 08/26/24 10:15
Intake and Output
08/25/24 08/26/24 08/27/24
06:59 06:59 06:59
Intake Total 1296.5 / 1429.8 4919.0 / 5047.2 682.8 / 682.8
Output Total 350 / 350 304 / 349 150 / 150
Balance 946.5 / 1079.8 4615.0 / 4698.2 532.8 / 532.8
SaO2 83
Nasal Cannula flow liters per 3
minute
Physical Exam
General: Respiratory Distress (negative), Comfortable, Chills (negative) and Sweats (negative)
HEENT: Normocephalic and Anicteric
Cardiovascular: Irregular Rhythm (Irregularly irregular), Peripheral Edema (negative) and Other (Tachycardic)
Respiratory: Wheeze (negative), Crackles (negative), Rhonchi (negative) and Non-Labored Respirations
GI: Soft, Non Distended, Non Tender and Normal Bowel Sounds
Neurology: AO x 3 and Tremors (negative)
Skin: Warm, Dry, Cyanosis (negative), Jaundice (negative) and Other (Bilateral BKA)
Labs/Micro/Reports
Lab Data
08/26/24 04:47
08/26/24 04:47
Laboratory Results
08/25/24 08/25/24 08/26/24
11:51 18:14 00:53
APTT 38.8 H 60.7 H 61.8 H
08/26/24
07:36
APTT 59.6 H
Microbiology
08/24/24 22:43 Nose MRSA Screen - Final
No Methicillin Resistant Staphylococcus aureus isolated.
08/24/24 16:52 Blood/Venous Blood Culture - Preliminary
No Growth in 24 hours- Final report to follow
08/24/24 16:52 Blood/Venous Blood Culture - Preliminary
No Growth in 24 hours- Final report to follow
08/24/24 16:12 Nasal Swab Influenza Types A & B (FARIBA) - Final
Negative for Influenza A & B, NAAT
Negative results must be combined with clinical observations
and patient history.
Nucleic Acid Amplification test (NAAT)performed on the
[employer] platform.
--- NOTE | 2024-08-26 08:14 | W.PN.HOSP.TC ---
Today's Communication/Plan
-
Hematology/oncology consult
continue sodium bicarbonate infusion
Assessment / Plan
Assessment / Plan
Gen-AAOx3, NAD
HEENT-NC, AT, anicteric, clear oral mm
Neck-supple
CV-reg, no M, +S1/S2
Lungs-clear B/L
Abd-soft, NT, ND
Ext-no edema
Musculoskeletal-no cyanosis, clubbing, bilateral BKA
Skin-warm and dry, large left leg medial wound with superficial necrosis
Neuro-grossly non-focal
Psych-calm, cooperative
Septic shock - Unclear source of sepsis. Blood cultures negative so far. He is behaving as a neutropenic fever situation, still with ongoing fevers.
Antibiotics per infectious disease. Currently off vasopressors. Keep mean arterial pressure greater than 65.
Left medial leg wound - Debrided by vascular surgery. CT of the leg does not show drainable fluid collection. Unlikely to be source of infection.
Pancytopenia - Appears to be chronic. ANC 400. 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 He was lost to follow-up. Hematology/oncology consulted, waiting for input.
Rapid atrial fibrillation -rapid rates due to critical illness. Currently on IV amiodarone, IV heparin. Cardiology following. Does have a history of left atrial thrombus, since resolved on REY. Monitor platelet count closely on IV heparin and
discontinue if less than 50,000.
Oliguric CHARLY with anion gap metabolic acidosis -source of CHARLY likely due to septic shock, ATN. Lactic acidosis due to sepsis. Continue IV fluid support. Pool catheter in place, unfortunately urine output is low at 304 cc since pool placed
yesterday. Nephrology following.
Continue sodium bicarb and IV fluids. Bicarb improved, 23.
Hyponatremia -132.
Hypocalcemia -calcium 7.1, albumin 2.2, corrected calcium 8.5.
Hypomagnesemia -improved.
Hyperphosphatemia - 5.8, phosphate binder per nephrology.
PAD -s/p bilateral BKA. Has prosthesis.
Sick sinus syndrome -s/p permanent pacemaker.
Chronic heart failure with recovered EF
Essential hypertension -currently in shock, hold antihypertensives.
Hyperlipidemia
Rheumatoid arthritis
Full code
Unfortunately overall prognosis remains poor given multiorgan failure.
Anticipated Discharge: > 48 hours
Subjective/Interval History
-
Date of Service: August 26, 2024
Patient seen and examined. Complaining of fatigue. Denies other symptoms.
Objective Data
-
Labs:
Laboratory Results
08/26/24 08/26/24 08/26/24
00:53 04:47 07:36
WBC 2.4 L*
Hgb 8.8 L
Hct 26.2 L
Plt Count 60 L
APTT 61.8 H Pending
Sodium 132 L
Potassium 4.2
Chloride 99
Carbon Dioxide 23
BUN 80 H
Creatinine 3.6 H
Glucose 112 H
Calcium 7.1 L
Total Bilirubin 0.8
AST 53
ALT 33
Alkaline Phosphatase 81
Vital Signs:
Vital Signs
Temp Pulse Resp BP Pulse Ox
100.5 F H 125 15 89/68 96
08/26/24 07:00 08/26/24 06:15 08/26/24 06:15 08/26/24 06:05 08/26/24 06:15
I&O
08/25/24 08/26/24 08/27/24
06:59 06:59 06:59
Intake Total 1296.5 / 1429.8 4919.0 / 4919.0
Output Total 350 / 350 304 / 304
Balance 946.5 / 1079.8 4615.0 / 4615.0
Review of Systems
-
History Source: Patient
All other systems: Reviewed and negative
[2024-08-26 08:19] LABS: APTT 59.6 Sec (23.4-35.0)
--- NOTE | 2024-08-26 08:31 | PHA.VAN.FU ---
Vancomycin Assessment / Plan
- Assessment
Renal Function: Stable (3.6)
WBC's are: Stable (~2.4 ( Chronic pancytopenia))
In the past 24 hrs, patient has been: Febrile
Concomitant Antimicrobials: pip/tazo
- Assessment - Therapeutic Drug Monitoring
Random Level: 14.5 (last dose of vanc was 1500 mg 08/24 1925 ~ 35 hours ago)
Calculated half life (H): between last two levels ~ 76 hours
- Dosing Plan
Continue: dose by random levels
Dosing by Level: Hold off on dosing today
- Monitoring Plan
Random Level: repeat random AM 08/27
- Follow Up
Pharmacy will continue to follow.
Vancomycin Follow UP
- -
Patient Age: 73
Patient Sex: Male
Vancomycin Day #: 3
Indication: Other
Requesting Provider: Que Chowdhury
Pertinent Antimicrobial Allergies:
NKDA
Height / Weight:
Height 6 ft
Actual Weight 65.2 kg
IBW in k.6
Pertinent Past Medical History: BMI ~18.1, PAD, bilateral BKA
- Vital Signs / Lab Results
Temp Pulse Resp BP Pulse Ox
100.5 F H 133 15 80/60 95
08/26/24 07:00 08/26/24 08:15 08/26/24 08:15 08/26/24 08:00 08/26/24 08:15
Lab Results - Hematology
08/24/24 08/25/24 08/25/24
16:12 05:44 11:51
WBC 4.9 3.2 L 2.0 L*
08/25/24 08/26/24
18:14 04:47
WBC 2.4 L* 2.4 L*
Lab Results - Chemistry
08/24/24 08/24/24 08/25/24
16:12 22:47 05:44
BUN 65 H 65 H 65 H
Creatinine 3.2 H 3.1 H 3.1 H
Estimated Creat Clear 18 19 19
Albumin 2.8 L 2.5 L
08/25/24 08/26/24
18:14 04:47
BUN 74 H 80 H
Creatinine 3.6 H 3.6 H
Estimated Creat Clear 16 17
Albumin 2.2 L
08/24/24 08/24/24 08/25/24
16:52 21:13 05:44
Lactic Acid 2.1 H 2.1 H 2.2 H
08/25/24
11:51
Lactic Acid 1.4
Microbiology Results
08/24/24 16:52 Blood Culture - Preliminary
Blood/Venous No Growth in 24 hours- Final report to follow
08/24/24 16:52 Blood Culture - Preliminary
Blood/Venous No Growth in 24 hours- Final report to follow
08/24/24 16:12 Influenza Types A & B (FARIBA) - Final
Nasal Swab Negative for Influenza A & B, NAAT
Negative results must be combined with clinical observations
and patient history.
Nucleic Acid Amplification test (NAAT)performed on the
[employer] platform.
Therapeutic Drug Monitoring
Random Vancomycin 14.5 ug/ml 08/26/24 04:47
--- NOTE | 2024-08-26 08:40 | PTCARENOTE ---
PTT drawn and sent, result noted, heparin gtt increased by 200 units/hr per order. Attending Dr. Gage aware of platelet count this am of 60. Plan of care discussed with Drs. Villela and Merari.
--- NOTE | 2024-08-26 09:00 | PTCARENOTE ---
Pt rec'd this am from night RN, AOx3, pleasant and cooperative although vague and slightly naive to his medical situation. Assessment and medication administration as documented. Per speech - ok to continue with thin liquids and regular consistency
foods, no straws, pt does require assistance due to to hand and finger contractures. Some coughing noted with swallowing of thin liquids. Pt with heparin and amio, IVF infusing. HR remains elevated, consistently 130-140s on tele, afib. Pt has been
off levophed since 0100 per report from previous shift. BPs remain soft but MAP >65. PT asymptomatic. Left DL Picc in place. +BR, labs drawn and sent. Pt with pool catheter draining yellow with occ blood tinged urine, pool care provided. Oral care
and back rub done, pt turned and repositioned, linens refreshed. Plan of care discussed - updated by phone, requests MD update. TT sent to attending and heme/onc MD. Call maynard in reach. Safe environment maintained.
[2024-08-26 09:03] LABS: % Basophils 0.4 % (0-2); % Immature Granulocytes 1.3 % (0-0.5); % Lymphocytes 81.6 % (20.5-51.1); % Monocytes 4.2 % (1.7-9.3); % Neutrophils 12.5 % (42.2-75.2); Absolute Monocytes 0.1 10^3/uL (0.1-0.6); Absolute Neutrophils 0.3 10^3/uL (1.4-6.5); Nucleated Red Blood Cells % 0.8 % (-)
[2024-08-26] MEDS: ASPIR LOW (ENTERIC COATED) 81 MG PO (09:51)
--- NOTE | 2024-08-26 10:30 | W.PN.CD ---
Today's Communication / Plan
-
Continue Amio for rate control
Hold Eliquis for now, when platelets are a bit more recovered will resume
- Given history of LA thrombus we could accept plt >50K but prefer >100K
May need REY/DCCV later if AFib persists, clinical status would need to be much improved for him to be a candidate for REY/DCCV
Impression / Plan
-
Presentation: 73 y/o male (follows with Dr. Coronado) with HFimpEF (CM resolved), PAF on Eliquis s/p PVI 11/2022 , hx GOVIND thrombus (since resolved on REY), RA, PAD (severe- hx LSFA PCI 2020, BKA with prosthesis, now RBKA too), and pacemaker for
tachybrady syndrom who is here for for septic shock of unclear etiology.
Sepsis with neutropenic fevers
- Per medicine and ID
Atrial fibrillation, paroxysmal/SVT:
-hx ablation 12/03/22
-plan short term Amio
-Hope to get him back on Eliquis
New CHARLY, Cr normal usually
HFimpEF => his usual good medrx is on hold
PAD status post bilateral BKA's
Tachy-bradycardia syndrome, s/p dual-chamber pacemaker ([employer]): Last device check 08/21/2024, AP 68% V paced less than 1%, 56 episodes of A-fib max 11 hours on 07/01/2024
Rheumatoid arthritis
Subjective: No CP or dyspnea, feels a bit better
Data:
TTE 12/29/2022 normal LVEF at 65 to 70%, no significant valve disease..
Physical Exam
Vital Signs/Labs
Vital Signs
Temp Pulse Resp BP Pulse Ox
100.5 F H 130 19 86/73 83
08/26/24 07:00 08/26/24 10:15 08/26/24 10:15 08/26/24 10:00 08/26/24 10:15
08/25/24 08/26/24 08/27/24
06:59 06:59 06:59
Actual Weight 60.5 kg 65.2 kg
08/26/24 04:47
08/26/24 04:47
PT 17.9 Sec (11.4-14.6) H 08/24/24 22:47
INR 1.42 08/24/24 22:47
APTT 59.6 Sec (23.4-35.0) H 08/26/24 07:36
Magnesium 1.9 mg/dl (1.6-2.3) 08/26/24 04:47
Physical Exam
Constitutional: Comfortable
Cardiovascular: Rhythm/rate is irregular (Afib in 130s)
Respiratory: Crackles Absent
GI: Soft
Neuro/Psych: AO x 3
Data Reviewed
-
Date of Service: August 26, 2024
[2024-08-26] MEDS: NSS 1000 IV ×2 (11:23→18:05)
--- NOTE | 2024-08-26 12:02 | W.PN.NEPH.PH ---
Today's Communication / Plan
-
Discontinue bicarbonate
Continue normal saline
No acute need for dialysis at this
Assessment/Plan
-
73 y/o male past medical history of PAD, A-Fib, CHF, HTN and RA who presents with weakness and fever. He presents with acute kidney injury and ICU admission hypotension on pressors. Franco catheter placed oligoanuric.
Patient is overall vasculopath status post bilateral lower extremity amputations.
Renal consult for acute kidney injury and metabolic acidosis.
In April 2024 his renal function was normal with a creatinine of 1.
He presents with a creatinine of 3.2 bicarbonate of 14 thrombocytopenia and anemia and leukopenia.
Impression.
Acute kidney injury
Pancytopenia
Septic shock
Acute metabolic acidosis
A-fib
CHF preserved EF
Rheumatoid arthritis not on immune immune modulator
Plan.
Discontinue Entresto, Farxiga
Franco catheter
Broad-spectrum antibiotic
Pancytopenia suspect this is infectious etiology but need to consider microangiopathy/hematology consulted/check smear for schistocytes though unlikely
Hematology consult
Discussed with family at bedside about the possibilities of hemodialysis if urine output does not improve and they agree if needed
Discontinue bicarbonate drip
Start normal saline
Continue supportive care
33 minutes of critical care time
-
-
Date of Service: August 26, 2024
CC / HPI / ROS
-
Chief Complaint:
Acute kidney injury
History of Present Illness:
Acute kidney injury pancytopenia and septic shock
Review of Systems:
No chest pain or shortness of breath
Oliguric
Labs
-
Labs:
WBC 2.4 10^3/uL (4.8-10.8) L* 08/26/24 04:47
RBC 3.15 10^6/uL (4.70-6.10) L 08/26/24 04:47
Hgb 8.8 g/dL (13.0-18.0) L 08/26/24 04:47
Hct 26.2 % (39.0-52.0) L 08/26/24 04:47
Plt Count 60 10^3/uL (130-400) L 08/26/24 04:47
Sodium 132 mmol/L (135-145) L 08/26/24 04:47
Potassium 4.2 mmol/L (3.5-5.1) 08/26/24 04:47
Chloride 99 mmol/L (98-107) 08/26/24 04:47
Carbon Dioxide 23 mmol/L (22-30) 08/26/24 04:47
BUN 80 mg/dl (9-20) H 08/26/24 04:47
Creatinine 3.6 mg/dL (0.7-1.3) H 08/26/24 04:47
eGFR 17.30 08/26/24 04:47
Glucose 112 mg/dl (70-99) H 08/26/24 04:47
Calcium 7.1 mg/dl (8.4-10.2) L 08/26/24 04:47
Phosphorus 5.8 mg/dl (2.5-4.5) H 08/26/24 04:47
Albumin 2.2 g/dl (3.5-5.0) L 08/26/24 04:47
Physical Exam
-
Vital Signs:
Vital Signs
Temp Pulse Resp BP Pulse Ox
98.6 F 130 19 86/73 83
08/26/24 11:00 08/26/24 10:15 08/26/24 10:15 08/26/24 10:00 08/26/24 10:15
[2024-08-26] MEDS: HEPARIN 25000 UNITS/250 ML IV (12:25)
--- NOTE | 2024-08-26 12:48 | CON.ONC ---
Impression
Impression
sepsis
rapid afib
CHARLY
pancytopenia
RA
Plan
Plan
1. Pancytopenia - The etiology of this patient's pancytopenia us unclear. It has been present to varying degrees during previous hospitalizations for infections. Neutropenia has been appreciated on multiple CBCs w/ mild anemia. Thrombocytopenia is
more profound during this hospitalization. He does have an underlying diagnosis of RA, which could be contributing to his cytopenias at baseline. Flow cytometry during hospitalization in December revealed a clonal T-cell process, potentially c/w
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 Review of his peripheral smear today reveals several larger lymphocytes w/ granular inclusions, which could be c/w LGL. No microangiopathic RBC changes were appreciated. Neutrophils
were low, but appeared fairly normal in morphology. His current ongoing infection as well as antibiotics therapy is also likely affecting his cytopenias. A bone marrow biopsy at some point would be beneficial to further evaluate cytopenias.
-will add GCSF and monitor CBC
Will continue to follow with you.
Patient History
History of Present Illness
73y/o male seen in consultation today regarding pancytopenia.
The patient has a h/o afib, CAD, RA as well as peripheral vascular disease, s/p bilateral BKA, w/ chronic left LE wound, for which he follows at the wound care center.
He is now admitted to [facility] ICU w/ sepsis of unclear source, w/ pancytopenia, CHARLY and electrolyte abnormalities.
CBC on presentation revealed total WBC 4900, hemoglobin 9.9g/dl, and platelet count 68,000. WBC differential revealed neutropenia w/ ANC 400. Absolute lymphocyte count was elevated at 4200. During hospitalization, his neutropenia has persisted.
On review of prior CBCs from previous hospitalizations in July 2022 and again in December 2022, he had neutropenia at that time, in the context of acute infectious illness. A peripheral blood flow cytometry was performed in December 2022
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 A TCR gene re-arrangement study was recommended. Upon discharge in December 2022, it was recommended that he f/u w/ his press feeder broomcorn, in addition, to hematology.
However, per the patient's , he declined f/u.
During each of the prior hospitalizations in 08/16 and again in 01/16, he was treated w/ GCSF w/some improvement in WBC.
Clinically, the patient is feeling slightly better today. No fevers.
Past-Medical/Surgical History
PMH:
HTN
HLD
Chronic hyponatremia
CHF
A-fib
Tachybradycardia syndrome
Rheumatoid arthritis
Psoriasis
PAD
PSH:
pacemaker
Bilateral BKA
Vascular stenting
Allergies: NKDA
Social History
Tobacco: Former Smoker
Alcohol: None
Drug: None
Personal:
Living: With Family
Family History
Family History: Not Pertinent
Patient Medication
�Medication �Instructions �Recorded �Confirmed �Last Taken �Type
atorvastatin 10 mg tablet 40 mg PO QPM High cholesterol 01/07/22 08/24/24 08/23/24 History
sacubitril 24 mg-valsartan 26 mg 1 tab PO BID Heart Failure 01/07/22 08/24/24 08/23/24 History
tablet (Entresto)
multivitamin 1 tab PO DAILY Supplement 12/28/22 08/24/24 08/23/24 History
apixaban 5 mg tablet (Eliquis) 5 mg PO BID atrial fibrillation 02/03/23 08/24/24 08/23/24 History
aspirin 81 mg tablet,delayed 81 mg PO DAILY Blood Clot 02/03/23 08/24/24 08/23/24 History
release Prevention/Tx
dapagliflozin propanediol 10 mg 10 mg PO DAILY Heart Failure 02/03/23 08/24/24 08/23/24 History
tablet (Farxiga)
metoprolol succinate 50 mg 12.5 mg PO DAILY AFib/Heart Failure 02/03/23 08/24/24 08/23/24 History
tablet,extended release 24 hr
mupirocin 2 % topical ointment 1 applic topical BID #50 grams 05/10/24 08/24/24 08/23/24 Rx
spironolactone 25 mg tablet 12.5 mg PO DAILY 08/24/24 08/24/24 08/23/24 History
Active Medications
Generic Name Dose Route Start Last Admin
Trade Name Freq PRN Reason Stop Dose Admin
Acetaminophen 650 mg 08/24/24 21:44 08/25/24 15:41
Acetaminophen 325 Mg Tablet PO 09/21/24 21:43 650 mg
Q4HPRN PRN Administration
mild pain/ fever>100.5F
Aspirin 81 mg 08/25/24 08:00 08/26/24 09:51
Aspirin 81 Mg (Enteric Coated) Tablet PO 09/22/24 07:59 81 mg
DAILY ZHANG Administration
Atorvastatin Calcium 40 mg 08/25/24 18:00 08/25/24 17:45
Atorvastatin (Lipitor) 40 Mg Tablet PO 09/22/24 17:59 40 mg
QPM ZHANG Administration
Vancomycin HCl 1 each/ Device 0 mls @ 0 mls/hr 08/24/24 21:44
IV
PER PROTOCOL ZHANG
Protocol
As Directed
Piperacillin Sod/Tazobactam Sod 2.25 grams in 50 mls @ 100 mls/hr 08/25/24 02:00 08/26/24 09:51
Zosyn IV 50 mls
Q8H ZHANG Administration
Amiodarone HCl 900 mg/ 518 mls @ 0 mls/hr 08/25/24 01:30 08/25/24 21:15
Dextrose/Water IV 518 mls
PER PROTOCOL ZHANG Administration
Protocol
Per Protocol
Heparin Sodium 25,000 units in 250 mls @ 0 mls/hr 08/25/24 11:15 08/26/24 12:25
Heparin 85362 Units/250 Ml IV 250 mls
PER PROTOCOL ZHANG Administration
Protocol
Per Protocol
Norepinephrine Bitartrate 4 mg in 250 mls @ 0 mls/hr 08/25/24 11:30 08/25/24 21:09
Levophed IV 250 mls
PER PROTOCOL ZHANG Administration
Protocol
Per Protocol
Sodium Chloride 1,000 mls @ 125 mls/hr 08/26/24 10:00 08/26/24 11:23
Nss IV 1,000 mls
.Q8H ZHANG Administration
Sodium Chloride 0 flush 08/24/24 22:00
Sodium Chloride 0.9% (Flush) Syringe IV 09/21/24 21:59
PER PROTOCOL ZHANG
Review of Systems
-
A ROS was performed w/ pertinent findings as per HPI.
Physical Exam
-
General: Well Developed and No Apparent Distress
Cardiology: Other (irregular)
Pulmonary: Clear
GI: Soft
Extremities: Other (bilateral BKA)
Neurology: Non Focal
Labs
Lab Results
WBC 2.4 10^3/uL (4.8-10.8) L* 08/26/24 04:47
RBC 3.15 10^6/uL (4.70-6.10) L 08/26/24 04:47
Hgb 8.8 g/dL (13.0-18.0) L 08/26/24 04:47
Hct 26.2 % (39.0-52.0) L 08/26/24 04:47
MCV 83.2 fL (80.0-94.0) 08/26/24 04:47
MCH 27.9 pg (27.0-31.0) 08/26/24 04:47
MCHC 33.6 g/dL (33.0-37.0) 08/26/24 04:47
RDW 18.7 % (11.5-14.5) H 08/26/24 04:47
Plt Count 60 10^3/uL (130-400) L 08/26/24 04:47
MPV 10.0 fL (7.4-10.4) 08/26/24 04:47
Abs Immat Gran (auto) 0.0 10^3/uL (0-0.05) 08/26/24 04:47
Absolute Neuts (auto) 0.3 10^3/uL (1.4-6.5) L* 08/26/24 04:47
Absolute Lymphs (auto) 2.0 10^3/uL (1.2-3.4) 08/26/24 04:47
Absolute Monos (auto) 0.1 10^3/uL (0.1-0.6) 08/26/24 04:47
Absolute Eos (auto) 0.0 10^3/uL (0-0.7) 08/26/24 04:47
Absolute Basos (auto) 0.0 10^3/uL (0-0.2) 08/26/24 04:47
Immature Gran % 1.3 % (0-0.5) H 08/26/24 04:47
Neutrophils % 12.5 % (42.2-75.2) L 08/26/24 04:47
Lymphocytes % 81.6 % (20.5-51.1) H 08/26/24 04:47
Monocytes % 4.2 % (1.7-9.3) 08/26/24 04:47
Eosinophils % 0.0 % (0-6) 08/26/24 04:47
Basophils % 0.4 % (0-2) 08/26/24 04:47
Creatinine 3.6 mg/dL (0.7-1.3) H 08/26/24 04:47
Vital Signs
Vital Signs
Temp Pulse Resp BP Pulse Ox
98.6 F 136 19 80/63 98
08/26/24 11:00 08/26/24 12:30 08/26/24 12:30 08/26/24 12:00 08/26/24 12:30
--- NOTE | 2024-08-26 13:21 | PTOTSP ---
Speech therapy
Presentation: Patient was oriented and willing to participate. Patient followed commands. Patient does appear to demonstrate decreased insight evidenced by his recall of self feeding and completing daily tasks when patient has been receiving
assistance with all ADLs and is unable to self feed.
Swallowing complaints: Patient stated that he has been having difficulty with thin liquids sipped from a straw as he demonstrates coughing.
Swallowing function: HEDIS REGISTERED NURSE RN observed patient with several presentations of ice chips, thin liquid via tsp, thin liquid via cup, thin via straw, tsp of puree, and bites of regular consistency solids. Patient appeared to tolerate all trials as he did not
exhibit any overt clinical s/sx of aspiration or difficulty with mastication.
Given patient's clinical presentation and complaints, recommend reg/ thin liquids, NO STRAWS. Of note, patient requires full assistance with feeds due to coordination and motor function.
Recommendations:
1) Reg/ thin liquids
2) NO Straws
3) FULL assistance and supervision with PO
4) Medications as tolerated
Plan: HEDIS REGISTERED NURSE RN will continue to follow to ensure tolerance; pending hospitalization.
[2024-08-26] MEDS: GRANIX 480 MCG SC (14:02)
[2024-08-26 14:32] LABS: Venous Blood Gas B.E. -2.2 mmol/L (-4 to +4); Venous Blood Gas HCO3 22.3 mmol/L (22-27); Venous Blood Gas O2 Sat % 99.1 %; Venous Blood Gas pCO2 36 mmHg (35-48); Venous Blood Gas pO2 89 mmHg (30-50)
--- NOTE | 2024-08-26 14:32 | PTCARENOTE ---
Pt resting when undisturbed, remains pleasant and cooperative. Orders for Granix rec'd; pt updated and provided education on this particular medications. Package insert left with patient on bedside table to reinforce education. PTT and VBG drawn and
sent. Assisted pt to eat lunch -PBJ sandwich and iced tea, pt coughed and lost his breath on second sip of tea, did not desat. No issues with solid food. Pt stated his and daughter will be coming by to visit. Call maynard in reach.
[2024-08-26 14:40] LABS: APTT 64.2 Sec (23.4-35.0)
[2024-08-26] MEDS: LIPITOR 40 MG PO (17:18)
--- NOTE | 2024-08-26 20:00 | PTCARENOTE ---
Received pt. at 1900. Pt. currently in bed. Awake, alert, and oriented. Denies pain/discomfort. Cardiac rhythm Afib (known). Amiodarone gtt and heparin gtt currently infusing. Currently on nasal cannula. Lungs sound diminished. PO diet, good
appetite. Franco catheter in place, draining without issue. Skin as documented. Vital signs stable at this time.
[2024-08-26] MEDS: TYLENOL 650 MG PO (23:17)
[2024-08-26 23:26] LABS: APTT 86.5 Sec (23.4-35.0)
--- NOTE | 2024-08-26 23:55 | PTCARENOTE ---
Pt. heart rhythm remains in afib. Continuing heparin gtt and amiodarone gtt. PTT in therapeutic range. PRN Tylenol given for fever, see JUN.
[2024-08-27] VITALS (26 sets, daily range): BP systolic 73–114; BP diastolic 54–86; BMI 21.4
[2024-08-27] MEDS: CORDARONE 518 MG IV (02:12)
[2024-08-27] MEDS: NSS 1000 IV (02:15)
[2024-08-27] MEDS: ZOSYN 50 IV ×3 (02:15→17:01)
[2024-08-27 03:37] LABS: Hematocrit 24.2 % (39.0-52.0); Hemoglobin 7.8 g/dL (13.0-18.0); Mean Corp Hgb Conc. 32.2 g/dL (33.0-37.0); Mean Corpuscular Hgb 27.3 pg (27.0-31.0); Mean Corpuscular Volume 84.6 fL (80.0-94.0); Mean Platelet Volume 9.4 fL (7.4-10.4); Platelet Count 53 10^3/uL (130-400); Red Blood Cell Count 2.86 10^6/uL (4.70-6.10); Red Cell Dist. Width 18.4 % (11.5-14.5); White Blood Cell Count 2.4 10^3/uL (4.8-10.8)
[2024-08-27 03:51] LABS: APTT 91.3 Sec (23.4-35.0)
[2024-08-27 03:54] LABS: Vancomycin Random 11.7 ug/ml
[2024-08-27 03:57] LABS: % Basophils 0.9 % (0-2); % Immature Granulocytes 0.4 % (0-0.5); % Lymphocytes 63.4 % (20.5-51.1); % Monocytes 4.7 % (1.7-9.3); % Neutrophils 30.6 % (42.2-75.2); Absolute Lymphocytes 1.5 10^3/uL (1.2-3.4); Absolute Monocytes 0.1 10^3/uL (0.1-0.6); Absolute Neutrophils 0.7 10^3/uL (1.4-6.5); Nucleated Red Blood Cells % 0 % (-)
--- NOTE | 2024-08-27 04:00 | PTCARENOTE ---
Pt. assessment remains unchanged. AM labs drawn. Vital signs stable at this time.
[2024-08-27 04:12] LABS: ALT (SGPT) 39 U/L (0-50); AST (SGOT) 71 U/L (17-59); Albumin 2.1 g/dl (3.5-5.0); Alkaline Phosphatase 99 U/L (38-126); Blood Urea Nitrogen 85 mg/dl (9-20); Calcium 6.7 mg/dl (8.4-10.2); Carbon Dioxide 22 mmol/L (22-30); Chloride 101 mmol/L (98-107); Estimated Creatinine Clearance 17 ml/min; Glucose 98 mg/dl (70-99); Potassium 4.2 mmol/L (3.5-5.1); Sodium 131 mmol/L (135-145); Total Bilirubin 0.7 mg/dl (0.2-1.3); Total Protein 5.5 g/dl (6.3-8.2); eGFR 16.74
[2024-08-27] MEDS: CALCIUM GLUCONATE 130 MG IV (05:20)
[2024-08-27] MEDS: HEPARIN 25000 UNITS/250 ML IV (06:04)
--- NOTE | 2024-08-27 07:51 | W.PN.HOSP.TC ---
Today's Communication/Plan
-
Monitor CBC
Assessment / Plan
Assessment / Plan
Gen-AAOx3, NAD
HEENT-NC, AT, anicteric, clear oral mm
Neck-supple
CV-reg, no M, +S1/S2, tachycardia
Lungs-clear B/L
Abd-soft, NT, ND
Ext-no edema
Musculoskeletal-no cyanosis, clubbing, bilateral BKA
Skin-warm and dry, large left leg medial wound with superficial necrosis
Neuro-grossly non-focal
Psych-calm, cooperative
Septic shock - Unclear source of sepsis. Blood cultures negative so far. He is behaving as a neutropenic fever situation, still with ongoing fevers.
Antibiotics per infectious disease. Currently off vasopressors. Keep mean arterial pressure greater than 65.
Left medial leg wound - Debrided by vascular surgery. CT of the leg does not show drainable fluid collection. Unlikely to be source of infection.
Pancytopenia - Appears to be chronic. ANC 700, improving. 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 He was lost to follow-up. Hematology/oncology following as consult. Daily Granix ordered. Hemoglobin is
trending down, 7.8.
Rapid atrial fibrillation -rapid rates due to critical illness. Currently on IV amiodarone, IV heparin. Cardiology following. Does have a history of left atrial thrombus, since resolved on REY. Monitor platelet count closely on IV heparin and
discontinue if less than 50,000.
Oliguric CHARLY with anion gap metabolic acidosis -source of CHARLY likely due to septic shock, ATN. Lactic acidosis due to sepsis. Continue IV fluid support. Pool catheter in place, unfortunately urine output is low at 304 cc since pool placed
yesterday. Nephrology following.
Continue sodium bicarb and IV fluids. Bicarb improved.
Hyponatremia - stable.
Hypocalcemia -calcium 7.1, albumin 2.2, corrected calcium 8.5.
Hypomagnesemia -improved.
Hyperphosphatemia - 5.8, phosphate binder per nephrology.
PAD -s/p bilateral BKA. Has prosthesis.
Sick sinus syndrome -s/p permanent pacemaker.
Chronic heart failure with recovered EF
Essential hypertension -currently in shock, hold antihypertensives.
Hyperlipidemia
Rheumatoid arthritis
Full code
Unfortunately overall prognosis remains poor given multiorgan failure.
Anticipated Discharge: > 48 hours
Subjective/Interval History
-
Date of Service: August 27, 2024
Patient seen and examined. No complaints.
Objective Data
-
Labs:
Laboratory Results
08/26/24 08/27/24
21:10 03:09
WBC 2.4 L*
Hgb 7.8 L
Hct 24.2 L
Plt Count 53 L
APTT 86.5 H 91.3 H
Sodium 131 L
Potassium 4.2
Chloride 101
Carbon Dioxide 22
BUN 85 H
Creatinine 3.7 H
Glucose 98
Calcium 6.7 L*
Total Bilirubin 0.7
AST 71 H
ALT 39
Alkaline Phosphatase 99
Vital Signs:
Vital Signs
Temp Pulse Resp BP Pulse Ox
99.6 F 132 20 105/85 94
08/27/24 07:00 08/27/24 07:00 08/27/24 07:00 08/27/24 07:00 08/27/24 03:15
I&O
08/26/24 08/27/24 08/28/24
06:59 06:59 06:59
Intake Total 4919.0 / 5047.2 5072.8 / 5072.8
Output Total 304 / 349 864 / 864
Balance 4615.0 / 4698.2 4208.8 / 4208.8
Review of Systems
-
History Source: Patient
All other systems: Reviewed and negative
--- NOTE | 2024-08-27 08:24 | W.PN.INTV ---
Today's Communication / Plan
Recommendations
Maintain MAP >65-70 to help refuse organs, especially kidneys
May need to resume Levophed
Trend sCr, strict I/O
Granix started on 08/26 by hematology/oncology
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
Continue amiodarone drip for rapid A-fib
Heparin drip
Trend blood counts and transfuse to keep Hb >7 g/dL, platelets >20k --> he is currently not clinically bleeding
Continue ICU level care for this critically ill patient
Assessment
-
73-year-old former smoking male with history of hypertension, PAD, RA, PAF, CHF, PAD status post bilateral BKA's and permanent pacemaker who presented with weakness found to be hypotensive and probably septic-database administrator consulted for
sepsis/critical care management 08/25/2024.
Septic shock unresponsive to fluids requiring pressors to sources include UTI vs pneumonia � shock state now resolved
CHARLY (baseline creatinine appears to be 1, which is where his creatinine was on 05/10/2024)
Metabolic acidosis
Rapid A-fib with history of ablation 2022 on amiodarone drip
Pancytopenia with concern for leukemia
Neutropenic fever
Lactic acidosis � resolved as of 08/25/2024
Conditions present prior to admission:
Hypertension.
PAD status post bilateral BKA's.
PAF.
Tachybradycardia/permanent pacemaker.
CHF with recovered EF.
Left atrial appendage thrombus.
Hyperlipidemia.
Rheumatoid Arthritis
Chronic thrombocytopenia.
Left lower extremity stent.
Plan
Patient was admitted to medical intensive care unit for persistent hypotension despite fluid resuscitation requiring pressors
Pressors have now been off since 08/26/2024; maintain MAP >65
Continue supplemental oxygen and wean down as tolerated while keeping SpO2 >90-94%
High flow oxygen if needed
BiPAP if necessary
Aspiration precautions
Nebulizers if needed
Hematology consulted. It is unclear what causing his pancytopenia, although he does have rheumatoid arthritis which could be contributing. Prior flow cytometry during hospitalization December revealed clonal T cells, potentially consistent with
LGL.
- Bone marrow biopsy would be very helpful -hopefully this can be obtained early next week as long as thrombocytopenia does not worsen and he remains clinically stable to transfer off ICU floor
- Hematology added G-CSF on 08/26; continue to trend neutrophil count
Cultures reviewed
Follow-up urine culture (collected 08/24 � shows NGTD)
Follow-up blood cultures (2 sets collected 08/24 � shows NGTD)
Empiric antibiotics- continue Zosyn s/p IV vanco x1 dose on 08/24
Infectious diseases consulted � recs appreciated
Trend WBC and monitor for fevers, treating with Tylenol
Trend serum bicarbonate level
If persistently hypotensive then consider checking random cortisol-hydrocortisone if random less than 3, if 3-15 then consider ACTH stimulation test
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
If persistently hyperthermic then correcting hyperthermia can decrease pressor requirements, increased chances of reversal of shock and decrease mortality
Vascular surgical consulted due to chronic wound at medial left knee
CT lower extremity summarized below
Cardiology consulted
Continue amiodarone infusion
Heart rate control with goal <110
Replete K>4, Mg>2
Eliquis on hold due to platelets dropping-cardiology hesitant to hold Eliquis in light of history of extensive left atrial thrombus
He is now on heparin drip; also on ASA
Monitor renal function
Nephrology consulted - if Cr fails to improve then he may be heading towards HD
IVF stopped; 120mg IV lasix being given per nephro --> follow up UOP
DVT prophylaxis: heparin gtt
Early nutrition if possible
Early mobilization/bedside range of motion
Outpatient pulm evaluation-PFTs, yearly low-dose lung cancer screening CT
Given patient's tachycardia, with HR >130 with hypotension, continue with ICU level care. Remains on amiodarone drip.
Critical care statement: A total of 37 minutes of critical care time was provided for this patient today. This includes management of unstable vital signs, evaluation of the patient at bedside, reviewing the patient's pertinent medical records
including radiographs, microbiology, laboratory evaluations, and discussion with primary team, consultants, pharmacy, nutrition, physical therapy, case management, charge nurse, critical care nursing, and respiratory therapy.
Diagnostic data:
Chest x-ray 08/24/2024-perihilar interstitial subtle airspace opacification CHF versus pneumonia
CT lower extremity 08/25/2024-no drainable fluid collection within the left lower extremity, no convincing evidence for osteomyelitis, mild fat stranding and soft tissue prominence in the perirectal presacral space. Mild fecal retention within the
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
Echocardiogram 12/29/2022-EF 65-70%, no valvular disease
Subjective Dataa
Subjective Data
Date of Service:
Date of Service: August 27, 2024
Chief Complaint: Systems Development Consultant Follow Up
Subjective:
Patient seen and evaluated this morning. He was very sleepy this morning. Heart rate 133, BP 107/78 and saturating 94% on 6 L/min nasal cannula. Currently on heparin drip. Febrile overnight to 101.1 �F.
Review of Systems
General: Other (Unobtainable due to acute clinical status)
Objective Data
Data Reviewed
Vital Signs / I&O / Oxygen:
Vital Signs
Temp Pulse Resp BP Pulse Ox
99.6 F 134 20 103/65 90
08/27/24 07:00 08/27/24 09:15 08/27/24 09:15 08/27/24 09:00 08/27/24 09:36
Intake and Output
08/26/24 08/27/24 08/28/24
06:59 06:59 06:59
Intake Total 4919.0 / 5047.2 5072.8 / 5229.0 758.6 / 758.6
Output Total 304 / 349 864 / 914 155 / 155
Balance 4615.0 / 4698.2 4208.8 / 4315.0 603.6 / 603.6
SaO2 90
Nasal Cannula flow liters per 6
minute
Physical Exam
General: Respiratory Distress (negative), Comfortable, Chills (negative) and Sweats (negative)
HEENT: Normocephalic and Anicteric
Cardiovascular: Irregular Rhythm (Irregularly irregular), Peripheral Edema (negative) and Other (Tachycardic)
Respiratory: Clear, Wheeze (negative), Crackles (negative), Rhonchi (negative) and Non-Labored Respirations
GI: Soft, Non Distended, Non Tender and Normal Bowel Sounds
Neurology: Tremors (negative) and Lethargic
Skin: Warm, Dry, Cyanosis (negative), Jaundice (negative) and Other (Bilateral BKA)
Labs/Micro/Reports
Lab Data
08/27/24 03:09
08/27/24 03:09
Laboratory Results
08/26/24 08/26/24 08/27/24
14:15 21:10 03:09
APTT 64.2 H 86.5 H 91.3 H
Microbiology
08/24/24 16:52 Blood/Venous Blood Culture - Preliminary
No Growth in 48 hours- Final report to follow
08/24/24 16:52 Blood/Venous Blood Culture - Preliminary
No Growth in 48 hours- Final report to follow
08/24/24 18:32 Urine Urine Culture - Final
NO GROWTH
08/24/24 22:43 Nose MRSA Screen - Final
No Methicillin Resistant Staphylococcus aureus isolated.
08/24/24 16:12 Nasal Swab Influenza Types A & B (FARIBA) - Final
Negative for Influenza A & B, NAAT
Negative results must be combined with clinical observations
and patient history.
Nucleic Acid Amplification test (NAAT)performed on the
[employer] platform.
[2024-08-27] MEDS: ASPIR LOW (ENTERIC COATED) 81 MG PO (08:51)
[2024-08-27] MEDS: GRANIX 480 MCG SC (08:51)
[2024-08-27] MEDS: NSS IV (08:52)
--- NOTE | 2024-08-27 08:58 | W.PN.ID1 ---
Date of Service
Date of Service: August 27, 2024
Today's Communication
Continue antibiotics; see below�
Assessment / Plan
Clinical sepsis
Febrile neutropenia
- fevers ongoing
Leukopenia/thrombocytopenia
CHARLY
Lactic acidosis
HTN
HLD
Chronic hyponatremia
CHF
A-fib
Tachybradycardia syndrome
Rheumatoid arthritis
Psoriasis
PAD
Recommendations:
Patient remains neutropenic; current ANC = 700
Source of suspected infection at present not clear, and may include lung or abdomen. Doubt source is the left leg eschar. Cultures negative to date.
Continue Zosyn to 2.25 g IV every 6 hours.
Discontinue further vancomycin as no resistant organisms recovered.
Follow pending cultures (blood, urine).
Monitor white count and temperature curve.
Follow cr and Est CrCl to guide further antibiotic dosing adjustment.
Continue with supportive measures.
Patient remains critically ill in ICU.
����������������������������������������������������������
Chief Complaint
-: Fever and Other (Neutropenia)
Subjective / Review of Systems
Patient seen and examined. Little change overnight. Temperature curve appears to be improving somewhat.
Vital Signs / Physical Exam
Vital Signs
Vital Signs
Temp Pulse Resp BP Pulse Ox
99.6 F 132 20 105/85 94
08/27/24 07:00 08/27/24 07:00 08/27/24 07:00 08/27/24 07:00 08/27/24 03:15
Physical Exam
Constitutional: Comfortable, Acutely Ill, Chronically Ill and Toxic
Eyes: No Conjunctival Hemorrhage and Sclera Anicteric
Cardiovascular: Regular Rate (tachy) and S1/S2; Negative S3/S4
Pulmonary: Symmetric; Negative Rales or Rhonchi
Gastrointestinal: Soft, Non Distended and Normal Bowel Sounds
Genito-Urinary: Franco and Clear Urine; Negative Turbid Urine or Hematuria
Musculoskeletal: Other (B/L BKA)
Wound: Other (dry eschar left medial knee; dressed.)
Psychological: Calm
Objective Data
Lab Data
Lab Results
08/27/24 03:09
08/27/24 03:09
PT 17.9 Sec (11.4-14.6) H 08/24/24 22:47
INR 1.42 08/24/24 22:47
APTT 91.3 Sec (23.4-35.0) H 08/27/24 03:09
Estimated Creat Clear 17 ml/min 08/27/24 03:09
Lactic Acid 1.4 mmol/L (0.7-2.0) 08/25/24 11:51
Total Bilirubin 0.7 mg/dl (0.2-1.3) 08/27/24 03:09
AST 71 U/L (17-59) H 08/27/24 03:09
ALT 39 U/L (0-50) 08/27/24 03:09
Alkaline Phosphatase 99 U/L (38-126) 08/27/24 03:09
Most recent labs reviewed.
Micro Results:
08/24/24 16:52 Blood Culture - Preliminary
Blood/Venous No Growth in 48 hours- Final report to follow
08/24/24 16:52 Blood Culture - Preliminary
Blood/Venous No Growth in 48 hours- Final report to follow
08/24/24 18:32 Urine Culture - Final
Urine NO GROWTH
08/24/24 22:43 MRSA Screen - Final
Nose No Methicillin Resistant Staphylococcus aureus isolated.
08/24/24 16:12 Influenza Types A & B (FARIBA) - Final
Nasal Swab Negative for Influenza A & B, NAAT
Negative results must be combined with clinical observations
and patient history.
Nucleic Acid Amplification test (NAAT)performed on the
[employer] platform.
Imaging:
08/24/2024 CXR (portable): Diffuse patchy interstitial and subtle airspace opacity noted bilaterally, predominantly in the perihilar region. Differential includes mild pulmonary edema versus pneumonia. No focal dense consolidation is seen. Please
see full dictation for additional detail. Film personally viewed.
Care Review
Plan reviewed with: Physician (Hospitalist)
--- NOTE | 2024-08-27 09:47 | PTCARENOTE ---
Received from night rn at 07:15. Pt awake, alert, and oriented but occasionally forgetful, repeating himself. Denies pain/discomfort. Cardiac rhythm Afib consistently in 130s. BPs improved from yesterday with MAPs >65, not requiring pressor support.
IVF, Amiodarone gtt and heparin gtt currently infusing. Weight up 6 kg from yesterday. Currently on nasal cannula at 4L but requiring increase to 6L with repositioning and assessment and feeding. Lungs sound diminished/coarse t/o. +2 edema to arms
and scrotum noted. Pt stated his elbows feel 'tight.' Drs. Gage and Nick updated via TT, orders rec' d to stop IVF and give Lasix. Franco catheter in place, draining blood tinged urine, MDs aware. Call maynard in hand. Plan discussed.
--- NOTE | 2024-08-27 10:21 | W.PN.CD ---
Today's Communication / Plan
-
No Eliquis yet
Will add low dose metoprolol for more rate control
Impression / Plan
-
Presentation: 73 y/o male (follows with Dr. Coronado) with HFimpEF (CM resolved), PAF on Eliquis s/p PVI 11/2022 , hx GOVIND thrombus (since resolved on REY), RA, PAD (severe- hx LSFA PCI 2020, BKA with prosthesis, now RBKA too), and pacemaker for
tachybrady syndrom who is here for for septic shock of unclear etiology.
Sepsis with neutropenic fevers => ANC now over 500 (1.68 K)
- Per medicine and ID
- Last recorded fever 101.1 on 08/26/2024 at 2309. Was 103.1 on admit
Atrial fibrillation, paroxysmal/SVT:
-Persisting now
-Rates in 130s on IV Amio (short term Amio is planned)
-hx ablation 12/03/22
-plan short term Amio
-Hope to get him back on Eliquis => now on IV heparin, prefer plt over 100K but could use at increased risk if we can be sure plt will stay over 50 K
-Plt 90 on 05/10/2024
New CHARLY, Cr normal usually
- Cr is WORSE, 3.7
HFimpEF => his usual good medrx is on hold
PAD status post bilateral BKA's
Tachy-bradycardia syndrome, s/p dual-chamber pacemaker ([employer]): Last device check 08/21/2024, AP 68% V paced less than 1%, 56 episodes of A-fib max 11 hours on 07/01/2024
Rheumatoid arthritis
Subjective: No CP or dyspnea, feels a bit better
Data:
TTE 12/29/2022 normal LVEF at 65 to 70%, no significant valve disease..
Physical Exam
Vital Signs/Labs
Vital Signs
Temp Pulse Resp BP Pulse Ox
99.6 F 134 20 103/65 90
08/27/24 07:00 08/27/24 09:15 08/27/24 09:15 08/27/24 09:00 08/27/24 09:36
08/26/24 08/27/24 08/28/24
06:59 06:59 06:59
Actual Weight 65.2 kg 71.6 kg
08/27/24 03:09
08/27/24 03:09
PT 17.9 Sec (11.4-14.6) H 08/24/24 22:47
INR 1.42 08/24/24 22:47
APTT 91.3 Sec (23.4-35.0) H 08/27/24 03:09
Magnesium 1.9 mg/dl (1.6-2.3) 08/26/24 04:47
Physical Exam
Constitutional: No acute distress
Cardiovascular: Pedal edema is absent and Rhythm/rate is irregular
Respiratory: Respiratory effort normal and Lungs clear to auscul.
GI: Soft and Distention absent
Neuro/Psych: AO x 3
Data Reviewed
-
Date of Service: August 27, 2024
--- NOTE | 2024-08-27 10:26 | W.PN.NEPH.PH ---
Today's Communication / Plan
-
Discontinue IV fluid
Lasix 120 mg x 1 now
Assessment/Plan
-
73 y/o male past medical history of PAD, A-Fib, CHF, HTN and RA who presents with weakness and fever. He presents with acute kidney injury and ICU admission hypotension on pressors. Franco catheter placed oligoanuric.
Patient is overall vasculopath status post bilateral lower extremity amputations.
Renal consult for acute kidney injury and metabolic acidosis.
In April 2024 his renal function was normal with a creatinine of 1.
He presents with a creatinine of 3.2 bicarbonate of 14 thrombocytopenia and anemia and leukopenia.
Impression.
Acute kidney injury
Pancytopenia
Septic shock
Acute metabolic acidosis
A-fib
CHF preserved EF
Rheumatoid arthritis not on immune modulator
Plan.
Discontinue Entresto, Farxiga
Franco catheter
Broad-spectrum antibiotic
Pancytopenia septic etiology(cultures negative to date)/unknown source/antibiotic= Granix
Hematology consult noted= no microangiopathic process
Discussed with family at bedside about the possibilities of hemodialysis if urine output does not improve and they agree if needed
Acidosis improved with bicarb
Discontinue IV fluid= as he is significantly positive
Creatinine remains elevated at 3.7 but seems to plateaued
Lasix 120 mg x 1 now
No acute need for dialysis at this time

33 minutes of critical care time
-
-
Date of Service: August 27, 2024
CC / HPI / ROS
-
Chief Complaint:
Acute kidney injury
History of Present Illness:
Acute kidney injury pancytopenia and septic shock
Review of Systems:
No chest pain or shortness of breath
Oliguric
Labs
-
Labs:
WBC 2.4 10^3/uL (4.8-10.8) L* 08/27/24 03:09
RBC 2.86 10^6/uL (4.70-6.10) L 08/27/24 03:09
Hgb 7.8 g/dL (13.0-18.0) L 08/27/24 03:09
Hct 24.2 % (39.0-52.0) L 08/27/24 03:09
Plt Count 53 10^3/uL (130-400) L 08/27/24 03:09
Sodium 131 mmol/L (135-145) L 08/27/24 03:09
Potassium 4.2 mmol/L (3.5-5.1) 08/27/24 03:09
Chloride 101 mmol/L (98-107) 08/27/24 03:09
Carbon Dioxide 22 mmol/L (22-30) 08/27/24 03:09
BUN 85 mg/dl (9-20) H 08/27/24 03:09
Creatinine 3.7 mg/dL (0.7-1.3) H 08/27/24 03:09
eGFR 16.74 08/27/24 03:09
Glucose 98 mg/dl (70-99) 08/27/24 03:09
Calcium 6.7 mg/dl (8.4-10.2) L* 08/27/24 03:09
Phosphorus 5.8 mg/dl (2.5-4.5) H 08/26/24 04:47
Albumin 2.1 g/dl (3.5-5.0) L 08/27/24 03:09
Physical Exam
-
Vital Signs:
Vital Signs
Temp Pulse Resp BP Pulse Ox
99.6 F 134 20 103/65 90
08/27/24 07:00 08/27/24 09:15 08/27/24 09:15 08/27/24 09:00 08/27/24 09:36
[2024-08-27 10:52] LABS: Glycohemoglobin (HgbA1c) 4.8 % (4.0-5.6)
[2024-08-27] MEDS: LOPRESSOR PO (11:41)
--- NOTE | 2024-08-27 11:47 | PTCARENOTE ---
Pt sa02 improved to 95% on 6L. Remains in afib in 120-140s, scheduled Lopressor ordered by Cards, however pt does not qualify for 11am dose d/t SBP <100 holding parameters.
[2024-08-27] MEDS: LASIX 100 MG IV (12:30)
--- NOTE | 2024-08-27 15:20 | PTCARENOTE ---
Pt sleeping between cares. Lasix was given earlier this am per orders, urine output only slightly improved afterward. Urine remains punch colored, MDs aware. Pt desats when eating meals, sa02 down to 89% on 6L and HR increased to 140s. Pt encouraged
to take breaks in between bites, and eat slowly. Pt verbalized understanding.
[2024-08-27] MEDS: LIPITOR 40 MG PO (17:01)
--- NOTE | 2024-08-27 17:30 | PTCARENOTE ---
Pt turned and repositioned, linens and dressings changed, pt declines dinner this evening. Pt remains AREVALO and tachypneic, sa02 92% on 6L. HR maintaining in 130s, Afib on tele. BPs consistently soft but MAPs>65, not requiring vasopressor support. Pt
with no complaints other than fatigue. Edema remains unchanged since this am. Call maynard in hand, safe environment continues.
[2024-08-27] MEDS: LOPRESSOR 25 MG PO (19:44)
--- NOTE | 2024-08-27 20:04 | PTCARENOTE ---
Received pt from previous RN. Pt is AAOx3, garbled speech, forgetful @ times. Afib on the monitor. Received pt on 6L NC, O2 sat 88%, midflow placed on pt 9L O2 sat 91%, lungs diminished/coarse, tachypneic/AREVALO. Franco in place, draining blood tinged
urine. Amio and Heparin gtt (see worklist). Call maynard in reach. Safe environment maintained.
[2024-08-27] MEDS: TYLENOL 650 MG PO (20:45)
[2024-08-27] MEDS: ROXICODONE 5 MG PO (22:29)
--- NOTE | 2024-08-27 23:28 | PTCARENOTE ---
Systems reviewed, no new changes in assessment. Pt c/o 08/03 head, neck and shoulder pain, ICU CREDIT UNION EXAMINER notified, PRN Maria De Jesus ordered and given (see MAR). Pt with 2 BMs, hygiene provided. Safe environment maintained.
[2024-08-28] VITALS (58 sets, daily range): BP systolic 66–134; BP diastolic 27–85; BMI 20.9
[2024-08-28] MEDS: HEPARIN 25000 UNITS/250 ML IV (00:17)
--- NOTE | 2024-08-28 00:50 | PTCARENOTE ---
Pt with decreased output, ICU PRODUCT SAFETY EXPERT notified.
[2024-08-28] MEDS: LEVOPHED 250 IV (01:06)
[2024-08-28] MEDS: ZOSYN 50 IV ×3 (01:12→18:11)
--- NOTE | 2024-08-28 01:15 | PTCARENOTE ---
Levo gtt infusing @ 2 mcgs for MAP >65. Current MAP of 60. See worklist.
--- NOTE | 2024-08-28 01:52 | PTCARENOTE ---
Tele monitor alarming for vtach, strip printed out. ICU CINDER SNAPPER notified, wide complex tachycardia, strip in the chart.
--- NOTE | 2024-08-28 02:55 | PTCARENOTE ---
Addendum entered by Aissatou Reyes RN 08/28/24 03:58:
Bumex ordered and given.
Original Note:
Pt sounding wet, O2 sat 87% on 9L midflow. O2 increased to 15L midflow, O2 sat 88%. ICU ATTENDANT CHILD ACTIVITY notified, highflow ordered.
--- NOTE | 2024-08-28 03:30 | PTCARENOTE ---
RT suctioned bloody sputum from pt, ICU PHYSICAL THERAPY DIRECTOR notified.
[2024-08-28] MEDS: BUMEX 4 MG IV (03:48)
[2024-08-28] MEDS: DILAUDID 0.5 MG IV (03:55)
[2024-08-28 04:15] LABS: HCO3 16.8 mmol/L (21-28); PCO2 35 mmHg (35-48); PO2 83 mmHg (83-108); pH 7.29 (7.35-7.45)
[2024-08-28 04:23] LABS: ALT (SGPT) 45 U/L (0-50); AST (SGOT) 68 U/L (17-59); Albumin 2.4 g/dl (3.5-5.0); Alkaline Phosphatase 134 U/L (38-126); Blood Urea Nitrogen 88 mg/dl (9-20); Calcium 7.3 mg/dl (8.4-10.2); Carbon Dioxide 18 mmol/L (22-30); Chloride 100 mmol/L (98-107); Glucose 120 mg/dl (70-99); Potassium 4.7 mmol/L (3.5-5.1); Sodium 132 mmol/L (135-145); Total Bilirubin 0.9 mg/dl (0.2-1.3); Total Protein 6.4 g/dl (6.3-8.2)
[2024-08-28 04:30] LABS: % Basophils 0.5 % (0-2); % Immature Granulocytes 0.7 % (0-0.5); % Lymphocytes 76.5 % (20.5-51.1); % Monocytes 3.1 % (1.7-9.3); % Neutrophils 19.2 % (42.2-75.2); Absolute Basophils 0.1 10^3/uL (0-0.2); Absolute Immature Granulocytes 0.1 10^3/uL (0-0.05); Absolute Lymphocytes 8.5 10^3/uL (1.2-3.4); Absolute Monocytes 0.3 10^3/uL (0.1-0.6); Absolute Neutrophils 2.1 10^3/uL (1.4-6.5); Hematocrit 25.3 % (39.0-52.0); Mean Corp Hgb Conc. 31.6 g/dL (33.0-37.0); Mean Corpuscular Hgb 27.1 pg (27.0-31.0); Mean Corpuscular Volume 85.8 fL (80.0-94.0); Mean Platelet Volume 10.5 fL (7.4-10.4); Nucleated Red Blood Cells % 0.3 % (-); Platelet Count 87 10^3/uL (130-400); Red Blood Cell Count 2.95 10^6/uL (4.70-6.10); Red Cell Dist. Width 18.8 % (11.5-14.5); White Blood Cell Count 11.1 10^3/uL (4.8-10.8)
--- NOTE | 2024-08-28 04:39 | W.PN.UPDATE ---
Update Note
Progress Note Update
08/28/24
959- Patient having increased oxygenation needs, hypoxic saturating 80s%, nasal cannula was increased to midflow then high flow nasal cannula. Heart rate 120-130s Afib, on low dose levophed gtt, bilateral breath sounds rhonchi with crackles, weak
cough but with suction noted thick old bloody secretions. Chest xray ordered. Minimal urine output from the 120mg IV lasix given during the day, creatinine 3.7. Concern for fluid overload and possible worsening pneumonia. Discussed with
Nick, dry food products mixer, concern for low urine output and fluid overload, recommendations received and will give 4mg IV bumex now, and further evaluation if patient will need dialysis. Patient currently on HFNC 100% FIO2, will also obtain ABG.
[2024-08-28 04:44] LABS: APTT 199.3 Sec (23.4-35.0)
[2024-08-28] MEDS: SODIUM BICARBONATE 50 MEQ IV ×4 (04:45→23:33)
[2024-08-28 04:50] LABS: Estimated Creatinine Clearance 16 ml/min
--- NOTE | 2024-08-28 06:49 | W.PN.UPDATE ---
Update Note
Progress Note Update
Patient having increased difficulties with breathing, maximized high flow nasal cannula and now on non rebreather. Discussed with Dr. Lei, event organizer, concern for fluid overload vs pneumonia. Plan will be to place trialysis catheter for
dialysis however patient may not tolerate procedure lay flat and will need to be intubated prior to catheter insertion. Consent for dialysis catheter placement obtained from patient, he verbalized understand. His Maria Teresa, was also called and
updated, all questions answered, agreed to procedure as well and intubation. Patient's plans to come to bedside now.
--- NOTE | 2024-08-28 08:00 | OR.RPT ---
Operative Report
Operative Report
Rapid sequence intubation
Indication. Hypoxic respiratory failure. Patient saturating around 90% on HFNC and nonrebreather at 100% FiO2 with tachypnea, tachycardia and sanguinous secretions. Increased work of breathing
Consent: Obtained form the patient.
Pre-medications: None
Patient was placed in Enriquez position. Nonrebreather was used to preoxygenate, subsequently [id number] ventilation was applied as patient saturations were around 82 to 85%. 20 mg of Etomidate was given as an induction agent followed by 60 mg
of Rocuronium as paralytic. Oral suctioning was performed which showed sanguinous secretions around the larynx. GlideScope was used, blade size #3, grade 1 view of vocal cords was obtained and ET tube, 8.0, was advanced under direct visualization
without any difficulty. Color change was confirmed and patient was bagged until saturations were around 88%. Subsequently patient was connected to ventilator. Bilateral good air entry noted. Tube was secured at 23 cm at the teeth. Patient
tolerated the procedure well.
Time spent: 25 min
Complications: None
Date of Service: 08/28/2024
[2024-08-28] MEDS: CORDARONE 518 MG IV (08:04)
[2024-08-28] MEDS: SUBLIMAZE 100 IV ×2 (08:08→21:40)
--- NOTE | 2024-08-28 08:08 | OR.RPT ---
Operative Report
Operative Report
Right IJ Trialysis Catheter placement (15 cm Trialysis)
Indication: Anuria, Respiratory failure, needs access for HD catheter
Consent: Obtained from: Patient as well as patient's spouse.
Time-out was performed and patient was placed in Trendelenburg position. Ultrasound was used to assess patency of Right IJ vein. Under sterile conditions, area was cleaned with chlorhexidine and then a full body drape was placed. 2 mL of local
anesthesia with lidocaine was injected. Under real-time ultrasound guidance, long axis view, the needle was inserted and vein was punctured, once blood was aspirated, syringe was removed and guidewire was advanced which did not meet any resistance.
Subsequently needle was withdrawn and guidewire was left in place. Ultrasound was used again to confirm presence of guidewire inside the vein lumen. A small sahil was placed at the skin and a dilator was advanced to about 50% of its length.
Serial dilation was performed with 3 different dilators to create track for HD catheter. Dilator was then removed and Trialysis catheter was advanced over guidewire and subsequently guidewire was removed. All 3 ports were capped and they were easy
to flush and were withdrawing blood without any resistance. Catheter was sutured to the skin and dressing was applied.
Ultrasound of the lungs was performed and good lung sliding was obtained. Patient stayed hemodynamically stable through the procedure.
Complications: None
Blood loss: Minimal
Time spent: 25 min
Date of Service: 08/28/2024
--- NOTE | 2024-08-28 08:13 | W.PN.NEPH.PH ---
Today's Communication / Plan
-
HD
Assessment/Plan
-
73 y/o male past medical history of PAD, A-Fib, CHF, HTN and RA who presents with weakness and fever. He presents with acute kidney injury and ICU admission hypotension on pressors. Franco catheter placed oligoanuric.
Patient is overall vasculopath status post bilateral lower extremity amputations.
Renal consult for acute kidney injury and metabolic acidosis.
In April 2024 his renal function was normal with a creatinine of 1.
He presents with a creatinine of 3.2 bicarbonate of 14 thrombocytopenia and anemia and leukopenia.
Impression:
Acute kidney injury
Pancytopenia
Septic shock
Acute metabolic acidosis
A-fib
CHF preserved EF
Rheumatoid arthritis not on immune modulator
hematuria/proteinuria
Plan:
HD today
will try to remove some volume as he is 9kg positive in last 48 hours and was intubated for rapid respiratory decompensation
however, CXR appearance seems more rapidly evolving multilobar PNA
abx broad spectrum
keep MAP > 65, add vasopressin if needed
will convert to CRRT after HD today
check serologies
follow LFTs
critical care time 33 minutes
-
-
Date of Service: August 28, 2024
CC / HPI / ROS
-
Chief Complaint:
Acute kidney injury
History of Present Illness:
Acute kidney injury pancytopenia and septic shock
WBC up to 11.1 with Granix
otherwise still anemic/thrombocytopenic
hypotense on levophed
intubated overnight for worsening hypoxia
critically ill in ICU
Review of Systems:
no overt fever, but low grade temps
oliguric
Labs
-
Labs:
WBC 11.1 10^3/uL (4.8-10.8) H 08/28/24 03:42
RBC 2.95 10^6/uL (4.70-6.10) L 08/28/24 03:42
Hgb 8.0 g/dL (13.0-18.0) L 08/28/24 03:42
Hct 25.3 % (39.0-52.0) L 08/28/24 03:42
Plt Count 87 10^3/uL (130-400) L D 08/28/24 03:42
Sodium 132 mmol/L (135-145) L 08/28/24 03:42
Potassium 4.7 mmol/L (3.5-5.1) 08/28/24 03:42
Chloride 100 mmol/L (98-107) 08/28/24 03:42
Carbon Dioxide 18 mmol/L (22-30) L 08/28/24 03:42
BUN 88 mg/dl (9-20) H 08/28/24 03:42
Creatinine 4.1 mg/dL (0.7-1.3) H* 08/28/24 03:42
eGFR 14.80 08/28/24 03:42
Glucose 120 mg/dl (70-99) H 08/28/24 03:42
Calcium 7.3 mg/dl (8.4-10.2) L 08/28/24 03:42
Phosphorus 5.8 mg/dl (2.5-4.5) H 08/26/24 04:47
Albumin 2.4 g/dl (3.5-5.0) L 08/28/24 03:42
Physical Exam
-
Vital Signs:
Vital Signs
Temp Pulse Resp BP Pulse Ox
100.8 F H 134 27 93/69 92
08/28/24 07:30 08/28/24 06:32 08/28/24 06:32 08/28/24 06:32 08/28/24 06:30
Cardiovascular:: Regular rate and rhythm (achy)
Respiratory:: Bilateral: Coarse
Lung Excursion:: Normal
Abdomen:: Nontender and Soft
Bowel Sounds:: None
Extremity Edema:: None: Bilateral:
Other Findings::
mottled skin
--- NOTE | 2024-08-28 08:40 | PTCARENOTE ---
Oracle R12 Developer bedside.
Emergently intubated, Trialysis line placed bedside by monument carver for emergent HD. Started on Vasopressin due to increasing uptitrations of norepi.
[2024-08-28] MEDS: MANNITOL 25% 12.5 GRAMS IV (08:50)
--- NOTE | 2024-08-28 08:54 | PTCARENOTE ---
Pt now maxed on norepi, vasopressin at 0.03, MAP dropping to 47 upon initiation of HD, HD nurse notifying police patrol lieutenant.
[2024-08-28] MEDS: FLEXBUMIN 25% FOR HEMODIALYSIS 12.5 GRAMS IV (08:55)
--- NOTE | 2024-08-28 09:00 | PTCARENOTE ---
Not tolerating HD, will complete this session, and starting CVVHD.
--- NOTE | 2024-08-28 09:11 | W.PN.NEPH.HD ---
Assessment
-
Seen on HD. now max on 2 pressors. remains intubated. VSS, access temp CVC
Progress Note - Hemodialysis
-
Date of Service: August 28, 2024
Duration: 15 minutes and 2 hours
Potassium Bath: 4
Calcium Bath: 2.5
Opti-Dialyzer: 160
Ultrafiltration: Other (2kg)
Blood Flow: 250
Dialysate Flow: 600
Heparin: no
EPO: no
[2024-08-28] MEDS: NORCURON 7 MG IV (09:23)
[2024-08-28] MEDS: LEVOPHED 258 MG IV ×3 (09:26→17:25)
--- NOTE | 2024-08-28 09:29 | PTCARENOTE ---
Pt. fiona vaughn, vec ordered. phenyl added.
--- NOTE | 2024-08-28 10:06 | W.PN.ID1 ---
Date of Service
Date of Service: August 28, 2024
Today's Communication
Continue Zosyn. See below�
Assessment / Plan
Clinical sepsis
- Now vent dependent and on 2 pressors.
Febrile neutropenia
- fevers ongoing although ANC now 2700
Leukopenia/thrombocytopenia
CHARLY
- On HD
Lactic acidosis
HTN
HLD
Chronic hyponatremia
CHF
A-fib
Tachybradycardia syndrome
Rheumatoid arthritis
Psoriasis
PAD
Recommendations:
Patient now with hypoxemic respiratory failure and on vent.
Patient also now on hemodialysis.
To date, cultures have remained negative.
Continue empiric Zosyn; plan is for CRRT. Once he begins will transition to 3.375 g IV every 6 hours
Follow pending cultures (blood, urine).
Monitor white count and temperature curve.
Continue with supportive measures.
Patient remains critically ill in ICU. Given turn of events, risk of mortality high despite extremely aggressive measures.
����������������������������������������������������������
Chief Complaint
-: Fever and Other (Neutropenia)
Subjective / Review of Systems
Patient seen and examined. Events noted. Intermittent fevers persist, but down from initial presentation. Patient now intubated and vent dependent. HD line has been inserted, and patient has started HD.
Vital Signs / Physical Exam
Vital Signs
Vital Signs
Temp Pulse Resp BP Pulse Ox
100.8 F H 129 27 92/68 90
08/28/24 07:30 08/28/24 08:35 08/28/24 08:35 08/28/24 08:35 08/28/24 08:35
Physical Exam
Constitutional: Acutely Ill and Toxic
Head: Other (ET tube in place.)
Cardiovascular: Regular Rate and S1/S2; Negative S3/S4
Pulmonary: Coarse
Gastrointestinal: Soft, Non Distended and Decreased Bowel Sounds
Extremities: Cyanosis (Generalized mottling of the extremities.); Negative Edema
Neurological: Other (Minimally responsive to touch.)
Objective Data
Lab Data
Lab Results
08/28/24 03:42
08/28/24 03:42
PT 17.9 Sec (11.4-14.6) H 08/24/24 22:47
INR 1.42 08/24/24 22:47
APTT 199.3 Sec (23.4-35.0) H* 08/28/24 03:42
Estimated Creat Clear 16 ml/min 08/28/24 03:42
Lactic Acid 1.4 mmol/L (0.7-2.0) 08/25/24 11:51
Total Bilirubin 0.9 mg/dl (0.2-1.3) 08/28/24 03:42
AST 68 U/L (17-59) H 08/28/24 03:42
ALT 45 U/L (0-50) 08/28/24 03:42
Alkaline Phosphatase 134 U/L (38-126) H 08/28/24 03:42
Most recent labs reviewed.
Micro Results:
08/24/24 16:52 Blood Culture - Preliminary
Blood/Venous No Growth in 72 hours- Final report to follow
08/24/24 16:52 Blood Culture - Preliminary
Blood/Venous No Growth in 72 hours- Final report to follow
08/24/24 18:32 Urine Culture - Final
Urine NO GROWTH
08/24/24 22:43 MRSA Screen - Final
Nose No Methicillin Resistant Staphylococcus aureus isolated.
08/24/24 16:12 Influenza Types A & B (FARIBA) - Final
Nasal Swab Negative for Influenza A & B, NAAT
Negative results must be combined with clinical observations
and patient history.
Nucleic Acid Amplification test (NAAT)performed on the
[employer] platform.
Imaging:
08/28/2024 CXR (portable): Interval placement of ET tube. Nontunneled right IJ HD catheter in place. Interval worsening of alveolar airspace disease within the left lung, and worsening right perihilar alveolar disease. No pneumothorax seen.
08/24/2024 CXR (portable): Diffuse patchy interstitial and subtle airspace opacity noted bilaterally, predominantly in the perihilar region. Differential includes mild pulmonary edema versus pneumonia. No focal dense consolidation is seen. Please
see full dictation for additional detail. Film personally viewed.
Care Review
Plan reviewed with: Physician (Nephrology; Critical Care)
--- NOTE | 2024-08-28 10:45 | W.PN.CD ---
Today's Communication / Plan
-
Continue Amio for rate control
Volume control with dialysis
Guarded prognosis
Impression / Plan
-
Presentation: 73 y/o male (follows with Dr. Coronado) with HFimpEF (CM resolved), PAF on Eliquis s/p PVI 11/2022 , hx GOVIND thrombus (since resolved on REY), RA, PAD (severe- hx LSFA PCI 2020, BKA with prosthesis, now RBKA too), and pacemaker for
tachybrady syndrom who is here for for septic shock of unclear etiology.
Respiratory failure
- Now intubated
- CXR today reviewed and agree with radiology: multifocal pneumonia versus cardiogenic pulmonary edema
- Received hemodialysis today
- On ATBs
Sepsis with fevers, resolved neutropenia fevers
- Per medicine and ID
- Last recorded fever 101.1 on 08/26/2024 at 2309. Was 103.1 on admit
Atrial fibrillation, paroxysmal/SVT:
-Persisting now
-Rates in 130s on IV Amio (short term Amio is planned)
-hx ablation 12/03/22
-Hope to get him back on Eliquis => now on IV heparin, prefer plt over 100K but could use at increased risk if we can be sure plt will stay over 50 K
-Plt 90 on 05/10/2024
New CHARLY, Cr normal usually
- Cr is WORSE, 3.7 => 4.1
HFimpEF => his usual good med rx is on hold
PAD status post bilateral BKA's
Tachy-bradycardia syndrome, s/p dual-chamber pacemaker ([employer]): Last device check 08/21/2024, AP 68% V paced less than 1%, 56 episodes of A-fib max 11 hours on 07/01/2024
Rheumatoid arthritis
Subjective: Intubatad and sedated
Data:
TTE 12/29/2022 normal LVEF at 65 to 70%, no significant valve disease..
Physical Exam
Vital Signs/Labs
Vital Signs
Temp Pulse Resp BP Pulse Ox
100.8 F H 135 22 116/73 92
08/28/24 07:30 08/28/24 10:30 08/28/24 10:30 08/28/24 10:30 08/28/24 09:45
08/27/24 08/28/24 08/29/24
06:59 06:59 06:59
Actual Weight 71.6 kg 69.7 kg
08/28/24 03:42
08/28/24 03:42
PT 17.9 Sec (11.4-14.6) H 08/24/24 22:47
INR 1.42 08/24/24 22:47
APTT 199.3 Sec (23.4-35.0) H* 08/28/24 03:42
Magnesium 1.9 mg/dl (1.6-2.3) 08/26/24 04:47
Physical Exam
Constitutional: No acute distress
EENT: Anicteric
Cardiovascular: Rhythm/rate is irregular (rapid)
Respiratory: Rhonchi Present
GI: Soft
Data Reviewed
-
Date of Service: August 28, 2024
--- NOTE | 2024-08-28 10:45 | W.PN.UPDATE ---
Update Note
Progress Note Update
Pt seen at bedside this am after intubation. Sedated at this time. LLE wound unchanged. Please call with questions or concerns.
[2024-08-28] MEDS: ASPIR LOW (ENTERIC COATED) PO (11:47)
[2024-08-28] MEDS: LOPRESSOR PO (11:47)
[2024-08-28] MEDS: MANNITOL 25% IV (11:47)
--- NOTE | 2024-08-28 12:15 | PTCARENOTE ---
CVVHD started, circuit running w.o issues at this time maintaining adequate access pressures. phenyl titrated off.
Norepi changed to X2 concentration, remains on vasopressin.
Diprivan/Fentanyl for analgesic/sedation. see flowsheets.
heparin restarted per funeral home general manager.
tolerating ventilator settings.
[2024-08-28] MEDS: GRANIX 480 MCG SC (12:17)
[2024-08-28] MEDS: DIPRIVAN 100 IV ×2 (12:18→16:43)
[2024-08-28] MEDS: PITRESSIN 100 IV ×2 (12:18→16:43)
[2024-08-28 12:33] LABS: B.E. -9.7 mmol/L; Ionized Calcium 1.07 mMOL/L (1.15-1.33); O2 Saturation % 98.2 % (94-98); PCO2 47 mmHg (35-48); PO2 96 mmHg (83-108)
[2024-08-28 12:35] LABS: pH 7.19 (7.35-7.45)
--- NOTE | 2024-08-28 12:47 | OR.RPT ---
Operative Report
Operative Report
Right Radial Arterial catheter placement
Informed consent was obtained from patient's spouse at bedside. Patient in septic shock on pressor therapy and needs invasive blood pressure monitoring.
Bedside ultrasound was used to confirm patency of right radial artery. Under sterile condition area was subsequently cleaned and a drape was placed. Under direct ultrasound visualization, radial artery was cannulated. Once blood was noted in the
chamber guidewire was advanced. Arterial catheter was subsequently advanced over the guidewire, and then guidewire was removed. Pressure tubing was subsequently attached to the catheter and arterial waveform was noted on the monitor. Subsequently
a dressing was placed.
Complications: None
Blood loss: None
Date of service: 08/28/2024
[2024-08-28 12:49] LABS: Lactic Acid 4.8 mmol/L (0.7-2.0)
--- NOTE | 2024-08-28 12:52 | W.PN.INTV ---
Addendum entered and electronically signed by Jay Lei MD 08/28/24 17:00:
Patient reevaluated throughout the day. At about 4:50 PM, I met with patient's and 3 daughters at bedside. Patient currently on 3 pressors continues to be in severe shock. Mottling of lower extremities as well as hands noted. Follow-up
lactate is now above 7. I explained to the family that patient is in severe septic shock with worsening acidosis and overall has a poor prognosis. We also discussed the possibility of cardiac arrest and requiring CPR. Patient's and 3
daughters expressed that they would not want to subject patient to CPR and they understand that his overall prognosis is poor. CODE STATUS changed to DNR. Will continue current management for now.
Additional 25 minutes of critical care time spent.
Original Note:
Today's Communication / Plan
Recommendations
- Patient emergently intubated, currently mechanically ventilated
- Right IJ Trialysis placed, initiate HD/CRRT
- Continue Levophed, add vasopressin
- Start stress dose steroids considering patient is near maxed out on 2 pressors
- Send tracheal aspirate for culture and sensitivity
- Follow-up serial ABGs, chest x-ray in a.m.
- Ongoing goals of care discussion
Assessment
-
73-year-old former smoking male with history of hypertension, PAD, RA, PAF, CHF, PAD status post bilateral BKA's and permanent pacemaker who presented with weakness found to be hypotensive and probably septic-cooler worker consulted for
sepsis/critical care management 08/25/2024.
08/28. Patient was emergently examined at 7 AM. He was noted to be severely hypoxic and was requiring high flow nasal cannula as well as nonrebreather at FiO2 of 100% and barely saturating. Patient was in respiratory distress with tachypnea and
accessory muscle use. Patient was getting more lethargic. He was emergently intubated and started on mechanical ventilation. In view of ongoing anuria, worsening hypoxia and chest x-ray suggestive of volume overload as well as pneumonia, right
internal jugular vein trialysis catheter was emergently placed and patient started on renal replacement therapy.
#1. Septic shock, suspect related to pneumonia.
-Check lactic acid
-Continue to titrate Levophed as needed, add vasopressin in view of persistent hypotension. Start stress dose steroids considering patient is near maxed on vasopressin and Levophed.
-Considering patient is volume overloaded, will avoid additional IV fluid resuscitation
-Serial ABG, chest x-ray in a.m.
-In view of severe metabolic acidosis pH 7.19, Vent settings were changed to tidal volume 500, respiratory rate 30, PEEP of 10 and 100% FiO2, follow-up ABG in 2 hours again
-Follow-up blood cultures. Send tracheal aspirate for further analysis
-Infectious disease service on case
#2. Acute hypoxic respiratory failure. Patient noted to be in respiratory distress with severe hypoxia and worsened opacities on chest x-ray suggestive of multifocal pneumonia and possibly volume overload.
-Rapid sequence intubation performed 08/28
-Patient required high PEEP in view of desaturations, current vent settings 500, 30, 100% FiO2 with a PEEP of 10. Severe A-a gradient noted. P:F ratio 96. Blood gas postintubation 7.19, 47, 96 on 100% FiO2
#3. Acute renal failure, oligoanuric.
-Patient did not respond to high-dose IV Lasix.
-Dialysis catheter placed, 08/28, initiated HD, subsequently transition to CRRT. Nephrology service on case
#4. Severe metabolic acidosis. pH 7.19, follow-up lactate. This is related to underlying severe septic shock as well as renal failure.
-Continue to hyperventilate, follow serial ABGs and lactate
-Continue pressor support to keep MAP above 65, continue antibiotic and stress dose steroids
#5. H/O A-fib with history of ablation 2022 on amiodarone drip
-Continue amiodarone and IV heparin
- Cardiology service on case
#6. Neutropenic fever with concern for leukemia.
-Continue broad-spectrum antibiotic, neutropenia has since resolved. Patient is s/p Granix
-Once more stable, patient will eventually need bone marrow biopsy for further evaluation
- Hematology oncology service on case
Goals of care. I discussed with patient's spouse as well as daughters at bedside. Updated them about patient's current critical condition. He is in multiorgan failure requiring significant hemodynamic support as well as respiratory failure and
renal failure. Overall prognosis is guarded. CODE STATUS full currently. Patient's did state that patient had stated in the past that he would not want to be on artificial life support for prolonged period of time.
Conditions present prior to admission:
Hypertension.
PAD status post bilateral BKA's.
PAF.
Tachybradycardia/permanent pacemaker.
CHF with recovered EF.
Left atrial appendage thrombus.
Hyperlipidemia.
Rheumatoid Arthritis
Chronic thrombocytopenia.
Left lower extremity stent.
Critical care statement: A total of 72 minutes of critical care time was provided for this patient today. This includes management of unstable vital signs, evaluation of the patient at bedside, reviewing the patient's pertinent medical records
including radiographs, microbiology, laboratory evaluations, and discussion with primary team, consultants, pharmacy, nutrition, physical therapy, case management, charge nurse, critical care nursing, and respiratory therapy.
Diagnostic data:
Chest x-ray 08/24/2024-perihilar interstitial subtle airspace opacification CHF versus pneumonia
CT lower extremity 08/25/2024-no drainable fluid collection within the left lower extremity, no convincing evidence for osteomyelitis, mild fat stranding and soft tissue prominence in the perirectal presacral space. Mild fecal retention within the
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
Echocardiogram 12/29/2022-EF 65-70%, no valvular disease
Subjective Dataa
Subjective Data
Date of Service:
Date of Service: August 28, 2024
Chief Complaint: Lean Specialist Follow Up
Subjective:
Patient noted to be in respiratory distress with increased work of breathing on high flow nasal cannula as well as on nonrebreather barely saturating around 90 to 92%.
Review of Systems
Cardiopulmonary: Dyspnea
Objective Data
Data Reviewed
Vital Signs / I&O / Oxygen:
Vital Signs
Temp Pulse Resp BP Pulse Ox
98.5 F 135 22 116/73 94
08/28/24 11:53 08/28/24 10:30 08/28/24 10:30 08/28/24 10:30 08/28/24 12:00
Intake and Output
08/27/24 08/28/24 08/29/24
06:59 06:59 06:59
Intake Total 5072.8 / 5229.0 1722.8 / 1722.8 389.6 / 389.6
Output Total 864 / 914 818 / 818 188 / 188
Balance 4208.8 / 4315.0 904.8 / 904.8 201.6 / 201.6
SaO2 [A/C] 94
SaO2 96
Nasal Cannula flow liters per 60
minute
Physical Exam
General: Respiratory Distress
HEENT: Normocephalic and Anicteric
Cardiovascular: Irregular Rhythm (Irregularly irregular), Peripheral Edema (negative) and Other (Tachycardic)
Respiratory: Crackles, Rhonchi and Accessory Resp Muscle Use
GI: Soft, Non Distended, Non Tender and Normal Bowel Sounds
Neurology: Lethargic
Skin: Dry and Other (cold extremities )
Labs/Micro/Reports
Laboratory Results
08/28/24 08/28/24 08/28/24
03:42 04:06 12:20
APTT 199.3 H*
pH 7.29 L 7.19 L*
pCO2 35 47
pO2 83 96
HCO3 16.8 L 18.0 L
O2 Delivery Level
Microbiology
08/24/24 16:52 Blood/Venous Blood Culture - Preliminary
No Growth in 72 hours- Final report to follow
08/24/24 16:52 Blood/Venous Blood Culture - Preliminary
No Growth in 72 hours- Final report to follow
08/24/24 18:32 Urine Urine Culture - Final
NO GROWTH
08/24/24 22:43 Nose MRSA Screen - Final
No Methicillin Resistant Staphylococcus aureus isolated.
[2024-08-28] MEDS: RFP-401 HD Soln (K+ 4 mEq/L) 5000 ML CRRT-IRR (13:17)
[2024-08-28] MEDS: SOLU-CORTEF 50 MG IV ×2 (13:21→18:11)
--- NOTE | 2024-08-28 13:40 | PTCARENOTE ---
Cannot obtain Sp02 readings through multiple modalities, Assistant Distribution Manager aware.
[2024-08-28 13:49] LABS: Complement C3 49 mg/dl (88-165)
--- NOTE | 2024-08-28 13:55 | W.PN.HOSP.TC ---
Today's Communication/Plan
-
Monitor vital signs and see plan
Vent management per engineer first assistant
Wean pressors as tolerated
Heparin
CRRT
Prognosis appears guarded
Assessment / Plan
Assessment / Plan
Gen-intubated
HEENT-NC, AT, anicteric, clear oral mm
CV-reg, no M, +S1/S2, tachycardia
Lungs-clear B/L
Abd-soft, NT, ND
Ext-no edema
Musculoskeletal- bilateral BKA
Skin-warm and dry, large left leg medial wound with superficial necrosis
Neuro-sedated
Psych-sedated
Acute hypoxic respiratory failure
Symptoms worsened overnight
Now with trialysis catheter, HD per nephrology
Now intubated 08/28
Continue vent management per engineer first assistant
Septic shock - Blood cultures negative so far. He is behaving as a neutropenic fever situation, still with ongoing fevers.
Antibiotics per infectious disease.
wean pressors as tolerated; discussed with engineer first assistant, might need stress dose steroids if requiring increased pressors
Left medial leg wound - Debrided by vascular surgery. CT of the leg does not show drainable fluid collection. Unlikely to be source of infection.
Pancytopenia - Appears to be chronic. ANC 700, improving. 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 He was lost to follow-up. Hematology/oncology following as consult. Daily Granix ordered. Monitor CBC
Rapid atrial fibrillation -rapid rates due to critical illness. Persisting now. Currently on IV amiodarone, IV heparin. Cardiology following. Does have a history of left atrial thrombus, since resolved on REY. Monitor platelet count closely on
IV heparin and discontinue if less than 50,000.
Oliguric CHARLY with anion gap metabolic acidosis -now with renal failure, source of CHARLY likely due to septic shock, ATN. Lactic acidosis due to sepsis. Continue IV fluid support. Limited urine output, now started on HD, STEAM FITTER HELPER
Nephrology following
Lactic acidosis
Trend
Hyponatremia -monitor
Hypocalcemia -continue to monitor
Hypomagnesemia
Hyperphosphatemia - phosphate binder per nephrology.
PAD -s/p bilateral BKA. Has prosthesis.
Sick sinus syndrome -s/p permanent pacemaker.
Chronic heart failure with recovered EF
Essential hypertension -currently in shock, hold antihypertensives.
Hyperlipidemia
Rheumatoid arthritis
Full code
Unfortunately overall prognosis remains poor given multiorgan failure. Health Records Technology Teacher discussing goals of care. Currently full code
I spent a total of 53 minutes with the patient or on the floor. More than 50% of this time involved counseling and coordination of care.
Anticipated Discharge: > 48 hours
Subjective/Interval History
-
Date of Service: August 28, 2024
denies pain
Objective Data
-
Labs:
Laboratory Results
08/28/24 08/28/24 08/28/24
03:42 04:06 08:00
WBC 11.1 H
Hgb 8.0 L
Hct 25.3 L
Plt Count 87 L D
APTT 199.3 H*
HCO3 16.8 L Cancelled
Sodium 132 L
Potassium 4.7
Chloride 100
Carbon Dioxide 18 L
BUN 88 H
Creatinine 4.1 H*
Glucose 120 H
Calcium 7.3 L
Total Bilirubin 0.9
AST 68 H
ALT 45
Alkaline Phosphatase 134 H
08/28/24 08/28/24 08/28/24
09:01 12:20 14:30
WBC
Hgb
Hct
Plt Count
APTT
HCO3 Cancelled 18.0 L Pending
Sodium
Potassium
Chloride
Carbon Dioxide
BUN
Creatinine
Glucose
Calcium
Total Bilirubin
AST
ALT
Alkaline Phosphatase
08/28/24 08/28/24
17:00 20:30
WBC Pending
Hgb Pending
Hct Pending
Plt Count Pending
APTT Pending
HCO3 Pending
Sodium Pending
Potassium Pending
Chloride Pending
Carbon Dioxide Pending
BUN Pending
Creatinine Pending
Glucose Pending
Calcium Pending
Total Bilirubin Pending
AST Pending
ALT Pending
Alkaline Phosphatase Pending
Vital Signs:
Vital Signs
Temp Pulse Resp BP Pulse Ox
98.5 F 123 24 105/78 96
08/28/24 11:53 08/28/24 13:00 08/28/24 13:00 08/28/24 11:15 08/28/24 12:51
I&O
08/27/24 08/28/24 08/29/24
06:59 06:59 06:59
Intake Total 5072.8 / 5229.0 1722.8 / 1722.8 655.3 / 655.3
Output Total 864 / 914 818 / 818 348 / 348
Balance 4208.8 / 4315.0 904.8 / 904.8 307.3 / 307.3
[2024-08-28 14:05] LABS: B.E. -11.1 mmol/L; PCO2 40 mmHg (35-48); PO2 155 mmHg (83-108); pH 7.21 (7.35-7.45)
[2024-08-28 14:25] LABS: Triglycerides 337 mg/dl (10-149)
[2024-08-28] MEDS: PROTONIX IV 40 MG IV (14:59)
[2024-08-28] MEDS: NSS (PRESERVATIVE FREE) 10 ML IV (14:59)
--- NOTE | 2024-08-28 15:16 | PTCARENOTE ---
CVVHD circuit running w.o issues. UF -50,4K bath, good venous/arterial access pressures.
Radial arterial line placed, titrating vasopressors via arterial metrics. Remains maxed on X2 Norepi, 0.03 vasopressin, phenyl remains off.
still cannot obtain pleth for sp02, thread separator aware trending ABGs.
Family updated bedside, all questions answered.
--- NOTE | 2024-08-28 15:23 | CHAP ---
Emotional and spiritual support provided. Prayer blanket given. Prayers shared. Will follow.
[2024-08-28] MEDS: NEO-SYNEPHRINE 1% 260 MG IV (15:35)
--- NOTE | 2024-08-28 15:39 | PTCARENOTE ---
Phenyl added, decreasing MAP goals. See flow sheet.
[2024-08-28 15:42] LABS: Anti Streptolysin Positive (Negative)
[2024-08-28 15:53] LABS: ASO Quantitative 6400 IU/ml (<200)
[2024-08-28 16:29] LABS: Ionized Calcium 1.02 mMOL/L (1.15-1.33)
[2024-08-28 16:38] LABS: Hematocrit 25.1 % (39.0-52.0); Hemoglobin 7.7 g/dL (13.0-18.0); Mean Corp Hgb Conc. 30.7 g/dL (33.0-37.0); Mean Corpuscular Hgb 27.6 pg (27.0-31.0); Platelet Count 100 10^3/uL (130-400); Red Blood Cell Count 2.79 10^6/uL (4.70-6.10); Red Cell Dist. Width 19.8 % (11.5-14.5); White Blood Cell Count 5.8 10^3/uL (4.8-10.8)
[2024-08-28 16:42] LABS: APTT 127.2 Sec (23.4-35.0)
[2024-08-28 16:47] LABS: Lactic Acid 7.8 mmol/L (0.7-2.0)
[2024-08-28 16:56] LABS: Albumin 2.3 g/dl (3.5-5.0); Alkaline Phosphatase 157 U/L (38-126); Blood Urea Nitrogen 59 mg/dl (9-20); Calcium 7.4 mg/dl (8.4-10.2); Carbon Dioxide 16 mmol/L (22-30); Chloride 102 mmol/L (98-107); Estimated Creatinine Clearance 18 ml/min; Glucose < 30 mg/dl (70-99); Phosphorus 7.6 mg/dl (2.5-4.5); Sodium 133 mmol/L (135-145); Total Bilirubin 1.3 mg/dl (0.2-1.3); Total Protein 6.2 g/dl (6.3-8.2); eGFR 16.74
--- NOTE | 2024-08-28 16:59 | PTCARENOTE ---
Serum Glu <30, refractory tile helper notified, 1 AMP d50 given, orders to start d10 gtt.
Goals of care discussion w. refractory tile helper, pt. now a DNR, still full medical management.
[2024-08-28 17:02] LABS: % Basophils 0.3 % (0-2); % Lymphocytes 70.2 % (20.5-51.1); % Monocytes 4.7 % (1.7-9.3); % Neutrophils 23.8 % (42.2-75.2); ALT (SGPT) 839 U/L (0-50); AST (SGOT) 1458 U/L (17-59); Absolute Immature Granulocytes 0.1 10^3/uL (0-0.05); Absolute Lymphocytes 4.1 10^3/uL (1.2-3.4); Absolute Monocytes 0.3 10^3/uL (0.1-0.6); Absolute Neutrophils 1.4 10^3/uL (1.4-6.5); Nucleated Red Blood Cells % 1.4 % (-)
[2024-08-28] MEDS: CALCIUM GLUCONATE 130 MG IV ×2 (17:08→22:59)
[2024-08-28] MEDS: D10W 500 IV (17:12)
[2024-08-28] MEDS: DEXTROSE 50% SYRINGE 12.5 GRAMS IV (17:14)
--- NOTE | 2024-08-28 17:34 | CM ---
Chart reviewed and patient remains intubated will need to follow with progress.
Plan; To follow with patient progress.
[2024-08-28 17:35] LABS: Glucose - Point of Care 114 mg/dl (70-99)
[2024-08-28] MEDS: LIPITOR PO (18:09)
[2024-08-28] MEDS: RFP-401 HD Soln (K+ 4 mEq/L) 15000 ML CRRT-IRR (19:09)
[2024-08-28] MEDS: SUBLIMAZE 50 MCG IV (19:41)
[2024-08-28 20:00] LABS: Hepatitis B Surface Antigen Negative (Negative)
[2024-08-28 20:18] LABS: Hepatitis B Surface Antibody Negative; Hepatitis C Antibody Negative (Negative)
[2024-08-28 20:46] LABS: B.E. -15.9 mmol/L; PCO2 35 mmHg (35-48); PO2 252 mmHg (83-108)
--- NOTE | 2024-08-28 20:46 | PTCARENOTE ---
Assumed care of pt at 190. Received pt intubated, #8.0 ETT, 23cm at [facility], AC 30/500/100/5. Pt on Fentanyl, Propofol, Levophed, Vasopressin, Amiodarone, Heparin, and D10 infusions at start of shift. By 1915 Phenylephrine was restarted. See med
titration flowsheets on worklist for full details. Pt currently on CRRT, 1899 CRRT numbers done in tandem with offgoing RN. Pt has been SR 90s with PVCs on monitor, unable to obtain a pulse ox on patient, ABG obtained shortly after 2029, O2 sat on
ABG was 100%. Physical assessment as documented in nursing shift assessment flowsheet. Pt's and daughter currently in room.
[2024-08-28 20:47] LABS: HCO3 11.9 mmol/L (21-28); pH 7.14 (7.35-7.45)
--- NOTE | 2024-08-28 21:29 | PTCARENOTE ---
Pt's pH on ABG 7.14, HCO2 11.9, 2 amps bicarb ordered/administered, see EMAR for details. CRRT machine alarming for arterial air, attempted troubleshooting and ultimately ended up swapping the arterial and venous lines and machine no longer alarmed
after that.
[2024-08-28 22:20] LABS: Ionized Calcium 1.05 mMOL/L (1.15-1.33)
[2024-08-28 22:32] LABS: Glucose - Point of Care 81 mg/dl (70-99)
[2024-08-28 22:39] LABS: APTT 155.7 Sec (23.4-35.0); Blood Urea Nitrogen 52 mg/dl (9-20); Calcium 7.8 mg/dl (8.4-10.2); Carbon Dioxide 13 mmol/L (22-30); Chloride 101 mmol/L (98-107); Estimated Creatinine Clearance 20 ml/min; Glucose 83 mg/dl (70-99); Phosphorus 7.3 mg/dl (2.5-4.5); Sodium 132 mmol/L (135-145)
[2024-08-28 22:45] LABS: Lactic Acid 11.6 mmol/L (0.7-2.0)
[2024-08-29] MEDS: SOLU-CORTEF 50 MG IV (00:12)
[2024-08-29] MEDS: ZOSYN 50 IV (00:13)
[2024-08-29] MEDS: DIPRIVAN 100 IV (00:42)
--- NOTE | 2024-08-29 00:55 | PTCARENOTE ---
Addendum entered by Xiomara Swanson RN 08/29/24 01:57:
CRRT fluid warmer turned up as well
Original Note:
Midnight assessment unchanged. Remains on same infusions, Propofol, Phenylephrine and Heparin have been titrated throughout the shift, see med titration flowsheets. Ca++ repleted based on 2200 labs. Pt given another amp of bicarb for low CO2 on
chemistry, see EMAR. CHG cloth bath done and all linens + gown changed. Pt tolerated well, with no changes in hemodynamics and no alarming of CRRT machine. Rectal probe inserted as it has been difficult to obtain a temp on pt. Rectal temp low, 92.4.
Otis Hugger blanket applied. Remains SR on monitor, 80s-90s with frequent PVCs.
--- NOTE | 2024-08-29 02:05 | PTCARENOTE ---
Pt's vasopressor requirements have been increasing throughout the shift, now maxed on Phenylephrine, as well as the Levophed and Vasopressin. BP remains in 70s/40s with MAPs in 50s. Discussed with Anna HOGAN, Albumin ordered, not adding a 4th
pressor.
[2024-08-29] MEDS: FLEXBUMIN 100 IV (02:13)
--- NOTE | 2024-08-29 02:16 | PTCARENOTE ---
Pt having increased ectopy including R on T PVCs and runs of PVCs. BP remains low despite being maxed on 3 pressors, at times going down to the 60s. Albumin infusing at this time. had requested to be awoken with any changes in patient's
condition. woken up and updated.
--- NOTE | 2024-08-29 02:44 | PTCARENOTE ---
CRRT stopped/blood rinsed back at 0220. Pt's BP was down to the 60s and heart rhythm becoming more erratic. Anna HOGAN at bedside and spoke with pt's to let her know pt was no longer tolerating the CRRT. Pt with frequent polymorphic PVCs,
pauses, and at times rhythm looks idioventricular. now sitting at bedside. Emotional support provided. All other medical treatments ongoing at this time.
[2024-08-29] MEDS: LEVOPHED 258 MG IV (02:59)
[2024-08-29] MEDS: PITRESSIN 100 IV (03:00)
[2024-08-29] MEDS: D10W IV (03:13)
--- NOTE | 2024-08-29 04:02 | PTCARENOTE ---
Pt's 3 daughters at bedside, stepped out to give daughters time with their father. BP in 50s/30s at this time. Continuing with same medical treatments. Albumin infusion finished.
[2024-08-29] MEDS: SUBLIMAZE 50 MCG IV (05:42)
--- NOTE | 2024-08-29 05:44 | PTCARENOTE ---
Family have decided to terminally extubate and withdrawal care.
--- NOTE | 2024-08-29 05:44 | W.PN.UPDATE ---
Update Note
Progress Note Update
Discussed with family at bedside, they would like to terminally extubate to comfort measures. Offered support and answered all questions. Updated RN and respiratory therapist on plan of care.
--- NOTE | 2024-08-29 05:49 | PTCARENOTE ---
Pt extubated at 0545, all drips turned off except Fentanyl drip which will continue for comfort measures. Family at bedside.
--- NOTE | 2024-08-29 06:37 | W.PN.DEATH ---
Pronouncement of
-
Called to see patient to pronounce.
No spontaneous heart tones or respirations noted.
Patient not responsive to verbal stimuli.
Patient is pronounced .
Time of : 05:59
Date of : 08/29/24
Cause of : acute hypoxic respiratory failure, pneumonia
Family Notified: Yes (family at bedside at time of )
--- NOTE | 2024-08-29 07:39 | PTCARENOTE ---
Pt. passed change of shift.
SORIN notified by night team.
[place] [facility] [place]
--- NOTE | 2024-08-29 08:19 | W.DCSUMMARY ---
Discharge Summary
Discharge Data
Date of Admission: 08/24/24
Date of Discharge: 08/29/24
-
Pending Results: No
Hospital Course
Discharge diagnosis:
Acute hypoxic respiratory failure
Septic shock
Left medial leg wound
Pancytopenia
Rapid atrial fibrillation
Renal failure with anion gap metabolic acidosis.
Lactic acidosis
Hospital Course:
73-year-old male with history of PAD, atrial fibrillation, CHF, hypertension, rheumatoid arthritis, GOVIND thrombus, tachybradycardia syndrome status post pacemaker came to the hospital with septic shock. Patient also had left medial leg wound which
was debrided by vascular surgery. Throughout hospitalization patient was pancytopenic and was seen by hematology throughout hospitalization. Patient also had A-fib with RVR for which she was seen by cardiology. Over time his renal function
continued to get worse and he developed renal failure. Initially he was put on dialysis which she could not tolerate due to septic shock where he required multiple pressors. His breathing also worsened over time where he developed hypoxic
respiratory failure and ended up requiring intubation. Given worsening renal function and breathing, family decided on terminal extubation. Patient later on 08/29/2024.
Discharge Plan
-
Patient Disposition:
Date/Time
Date/Time: 08/29/24 05:59
Discharge Date and Time
Discharge Date/Time: 08/29/24 05:59
Print Language: GEORGIAN
== END 2024-08-29 05:59 | disposition expired | DRG 871 ==
LOC: ICU 19:30
PROVIDERS: Emergency Medicine; Hospitalist; Internal Medicine; Internal Medicine Cardiovascular Disease; Internal Medicine Critical Care Medicine; Nurse Practitioner; Nurse Practitioner Acute Care; Nurse Practitioner Family; Nurse Practitioner Primary Care; Physician Assistant Medical; Specialist; ADMITTING PHYSICIAN Hospitalist; ATTENDING PHYSICIAN Internal Medicine; CONSULT PHYSICIAN Internal Medicine; CONSULT PHYSICIAN Internal Medicine Critical Care Medicine; CONSULT PHYSICIAN Internal Medicine Hematology & Oncology; CONSULT PHYSICIAN Internal Medicine Infectious Disease; CONSULT PHYSICIAN Internal Medicine Nephrology; EMERGENCY PHYSICIAN Emergency Medicine
PROC: 03HY32Z Insertion of Monitoring Device into Upper Artery, Percutaneous Approach (ICD-10-PCS; 2024-08-28)
PROC: 5A1935Z Respiratory Ventilation, Less than 24 Consecutive Hours (ICD-10-PCS; 2024-08-28)
PROC: 05HM33Z Insertion of Infusion Device into Right Internal Jugular Vein, Percutaneous Approach (ICD-10-PCS; 2024-08-28)
PROC: 0BH17EZ Insertion of Endotracheal Airway into Trachea, Via Natural or Artificial Opening (ICD-10-PCS; 2024-08-28)
DX: A41.89 Other specified sepsis (principal); J18.9 Pneumonia, unspecified organism; J96.01 Acute respiratory failure with hypoxia; R65.21 Severe sepsis with septic shock; D61.818 Other pancytopenia; E87.21 Acute metabolic acidosis; N17.9 Acute kidney failure, unspecified; E87.1 Hypo-osmolality and hyponatremia; I50.32 Chronic diastolic (congestive) heart failure; I47.10 Supraventricular tachycardia, unspecified; I48.0 Paroxysmal atrial fibrillation; I70.202 Unspecified atherosclerosis of native arteries of extremities, left leg; M06.9 Rheumatoid arthritis, unspecified; E78.00 Pure hypercholesterolemia, unspecified; I11.0 Hypertensive heart disease with heart failure; I25.10 Atherosclerotic heart disease of native coronary artery without angina pectoris; E83.51 Hypocalcemia; E83.42 Hypomagnesemia; Z79.01 Long term (current) use of anticoagulants; Z79.82 Long term (current) use of aspirin; Z95.0 Presence of cardiac pacemaker
CPT/HCPCS: 36600; 71045; 73700; 80048; 80053; 80202; 81003; 81015; 82330; 82805; 82962; 83036; 83516; 83605; 83735; 84100; 84155; 84165; 84478; 85025; 85027; 85610; 85730; 86038; 86060; 86063; 86160; 86706; 86803; 87040; 87070; 87086; 87205; 87340; 87502; 87811; 92610; 93005; 94002; 94003; 96361; 96365; 96367; 99291; J1447; P9047